=== PATIENT | female | born 1995 | race Caucasian/White ===

== ENCOUNTER 2019-06-15 19:21 | Emergency (ER) | payer MEDICAID, SELFPAY ==
[2019-06-15 19:27] VITALS: BP 156/106; PULSE 85; RESP 18; TEMP 36.9; O2SAT 100; BMI 33.3
--- NOTE | 2019-06-15 20:48 | ED_ITS ---
Entered by Shonda Davies, acting as scribe for Jessica Pike Jun 15, 2019 19:21 HPI - Abdominal Pain General: Chief Complaint: Abdominal Pain Stated Complaint: ABD pain Time Seen by Provider: 06/15/19 20:46 PFSH ED PFSH: Statuses (acute, chronic, etc) shown below reflect problem list status as previously entered and may not be historically accurate Social History Smoking and tobacco status: never smoked Course Vital Signs: Vital signs: Vital Signs Temperature 98.5 F 06/15/19 19:27 Pulse Rate 85 06/15/19 19:27 Respiratory Rate 18 06/15/19 19:27 Blood Pressure 156/106 06/15/19 19:27 Pulse Oximetry 100 06/15/19 19:27 Coding Level of Care Code ED Certified Fraud Examiner for Zenaida Marie
[2019-06-15 21:34] LABS: Basophils % 0.4 %; Eosinophils # 0.1 10^3/uL (0.0-0.8); Eosinophils % 1.6 %; Hematocrit 38.8 % (37.0-47.0); Hemoglobin 11.7 g/dL (11.5-15.3); Lymphocytes # 1.6 10^3/uL (0.8-4.8); Lymphocytes % 19.6 %; Mean Corpuscular HGB Conc 30.2 g/dL (30.0-36.0); Mean Corpuscular Hemoglobin 25.2 pg (28.0-34.0); Mean Corpuscular Volume 83.4 fL (81-99); Mean Platelet Volume 10.1 fL (7.4-10.4); Monocytes # 0.6 10^3/uL (0.2-0.9); Neutrophils # 5.7 10^3/uL (1.8-7.7); Neutrophils % 70.2 %; Nucleated Red Blood Cells % 0 %; Platelet Count 334 10^3/cmm (130-400); Red Blood Count 4.65 10^6/uL (4.1-5.3); White Blood Count 8.1 10^3/uL (4.0-10.0)
[2019-06-15 21:42] LABS: HCG Qualitative Urine. Negative (Negative)
[2019-06-15 21:46] LABS: Add Urine Culture? No; Bacteria Urine TRACE; Bilirubin Urine Neg (NEGATIVE); Blood Urine Neg (Negative); Glucose Urine UA Norm (Normal); Ketones Urine Negative (Negative); Leukocyte Esterase Urine Negative (Negative); Mucus Urine 1+; Nitrate Urine Negative (Negative); Protein Urine Neg (Negative); Specific Gravity, Urine 1.015 (1.005-1.030); Squamous Epithelial Cell Urine 0-4 (0-5); Urine Appearance Clear (CLEAR); Urine Color Yellow (Yellow); Urobilinogen Urine Norm (Negative); WBC Urine 0-4 /hpf (0-5); pH Urine 6 (5-7)
[2019-06-15 21:46] LABS: Alanine Aminotransferase 18 U/L (0-33); Albumin Level 4.5 g/dL (3.5-5.2); Alkaline Phosphatase 116 IU/L (35-105); Anion Gap 14.9 (5-19); Aspartate Amino Transferase 17 U/L (0-32); Blood Urea Nitrogen 18 mg/dL (6-20); Calcium 10.1 mg/Dl (8.6-10.0); Carbon Dioxide 24 mmol/L (22-29); Chloride 103 mmol/L (98-107); Globulin 3.2 g/dL (1.3-4.6); Glomerular Filtration Rate 104.6 mL/min (90-130); Glucose 87 mg/dL (74-109); Lipase 21 U/L (13-60); Potassium 3.9 mmol/L (3.5-5.1); Sodium 138 mmol/L (136-145); Total Bilirubin 0.2 mg/dL (0.15-1.2); Total Protein 7.7 g/dL (6.6-8.7)
--- NOTE | 2019-06-15 22:01 | ED_ITS ---
Entered by Yasmin Husain, acting as scribe for Linn Mena MD, [facility] Jun 15, 2019 19:21 Documented by User: Linn Mena MD, MSM 06/15/19 23:05 HPI - Abdominal Pain General: Chief Complaint: Abdominal Pain Stated Complaint: ABD pain Time Seen by Provider: 06/15/19 20:46 Source: patient Mode of arrival: ambulatory Limitations: no limitations History of Present Illness: HPI narrative: 23 yo Female presents to ED with complaint of abdominal pain. Pt states that her stomach has been cramping the past couple of days. Pt states that this morning her stomach started hurting very low. Pt states that the bumps in the road hurt. Pt states that she has been having to have bowel movements more often. Pt states that her bowel movements are normal but just more often. MD elicited complaint: abdominal pain Pertinent past history: none Onset (ago): day(s) Pain Consistency: intermittent Location: RLQ Pain scale (0-10): 6 Quality: cramping Radiation: none Migration to: no migration Exacerbating factors: nothing Relieving factors: nothing Associated Symptoms: Reports change in bowel habits; Denies chills, constipation, diarrhea, dysuria, fever(s), nausea and vomiting Review of Systems General: Reports: 10 or more systems reviewed and unremarkable except in HPI and below Const: Denies: fever, chills or body aches Eyes: Denies: change in vision, blurry vision or blind spots ENMT: Denies: throat pain, enlarged tonsils, painful swallowing or hoarseness Card: Denies: chest pain, palpitations, irregular heart rhythm, edema or swelling of feet/ankles Resp: Denies: shortness of breath, productive cough or non-productive cough GI: Reports: abdominal pain and change in bowel habits; Denies: nausea, vomiting, diarrhea or constipation : Denies: flank pain, difficulty urinating, painful urination, urinary frequency or urinary urgency Musc: Denies: neck pain, back pain, extremity pain or extremity swelling Skin/Breast: Denies: rash, itching or redness Neuro: Denies: headache, numbness in extremities or weakness in extremities Endo: Denies: excessive urination, excessive thirst or tired all the time PFSH ED PFSH: Statuses (acute, chronic, etc) shown below reflect problem list status as previously entered and may not be historically accurate Social History Smoking and tobacco status: never smoked Physical Exam Const: COMMON NORMALS: no apparent distress, average body habitus, oriented x3, no limitations, healthy appearing, alert and well nourished HENMT: COMMON NORMALS: normocephalic, head/scalp atraumatic, hearing grossly normal bilaterally, external ears normal, EAC's normal, TM's normal bilaterally, external nose normal, nasal mucous membranes and turbinates normal, moist oral mucous membranes and oropharynx normal HEAD & SCALP: normocephalic and atraumatic NOSE: external nose normal and nasal mucous membranes and turbinates normal EXTERNAL EAR: Yes external ears normal EXTERNAL AUDITORY CANAL: EAC's normal TYMPANIC MEMBRANE: TM's normal bilaterally Eye: COMMON NORMALS: PERRL, EOMs intact bilaterally, conjunctivae normal and no scleral icterus CONJUNCTIVA: Yes conjunctivae normal PUPIL: Yes PERRL Neck/C-Spine: COMMON NORMALS: full ROM, supple, no meningeal signs, no JVD and no carotid bruits Chest: COMMONS NORMALS: inspection of chest normal and palpation of chest normal Resp: COMMON NORMALS: normal respiratory effort, no retractions, no use of accessory muscles, clear to auscultation bilaterally and percussion normal AUSCULTATION: clear to auscultation bilaterally PERCUSSION: percussion normal Cardio: COMMON NORMALS: no JVD, regular rate, regular rhythm, S1 normal heart sound, S2 normal heart sound, no gallops, no clicks, no murmurs, no rub and peripheral pulses 2+ throughout RATE: regular rate RHYTHM: regular rhythm HEART SOUNDS: S1 normal and S2 normal PERIPHERAL PULSES: pulses 2+ throughout GI: COMMON NORMALS: normal to inspection, nondistended, normoactive bowel sounds, soft to palpation, no hepatosplenomegaly, no masses and no bruits; negative for non-tender PALPATION: Yes soft, Yes tender Details: RLQ and Yes no hepatosplenomegaly : COMMON NORMALS: Yes no CVA tenderness BLADDER/KIDNEY EXAM: Yes no CVA tenderness Back/Pelvis: COMMON NORMALS: no CVA tenderness Extremity: COMMON NORMALS: normal to inspection, full ROM, normal capillary refill, no joint enlargement, no clubbing, cyanosis or edema, no calf tenderness and no pedal edema Neuro: COMMON NORMALS: oriented x3 SENSORIUM/ORIENTATION: Yes alert MENINGEAL SIGNS: Yes no meningeal signs Skin: COMMON NORMALS: no rashes or lesions noted, no wounds, skin turgor normal, no jaundice, no petechiae and no mottling GENERAL SKIN EXAM: no rashes or lesions noted and turgor normal Course Vital Signs: Vital signs: Vital Signs Temperature 98.5 F 06/15/19 19:27 Pulse Rate 82 06/15/19 23:05 Respiratory Rate 18 06/15/19 23:05 Blood Pressure 161/99 06/15/19 23:05 Pulse Oximetry 100 06/15/19 23:05 MDM - Abdominal Pain Lab Data: Labs: Lab Results 06/15/19 06/15/19 06/15/19 Range/Units 21:15 21:15 21:15 WBC 8.1 (4.0-10.0) 10^3/ uL RBC 4.65 (4.1-5.3) 10^6/u L Hgb 11.7 (11.5-15.3) g/dL Hct 38.8 (37.0-47.0) % MCV 83.4 (81-99) fL MCH 25.2 L (28.0-34.0) pg MCHC 30.2 (30.0-36.0) g/dL RDW 14.0 (12.1-15.1) % Plt Count 334 (130-400) 10^3/c mm MPV 10.1 (7.4-10.4) fL Neut % (Auto) 70.2 % Lymph % (Auto) 19.6 % Love % (Auto) 8.0 % Eos % (Auto) 1.6 % Baso % (Auto) 0.4 % Neut # (Auto) 5.7 (1.8-7.7) 10^3/u L Lymph # (Auto) 1.6 (0.8-4.8) 10^3/u L Love # (Auto) 0.6 (0.2-0.9) 10^3/u L Eos # (Auto) 0.1 (0.0-0.8) 10^3/u L Baso # (Auto) 0.0 (0.0-0.1) 10^3/u L Nucleated RBC % (a uto) 0 % Nucleated RBCs # 0.0 /100WBC Sodium 138 (136-145) mmol/L Potassium 3.9 (3.5-5.1) mmol/L Chloride 103 (98-107) mmol/L Carbon Dioxide 24 (22-29) mmol/L Anion Gap 14.9 (5-19) BUN 18 (6-20) mg/dL Creatinine 0.7 (0.5-0.9) mg/dL GFR Calculation 104.6 (90-130) mL/min Glucose 87 (74-109) mg/dL Calcium 10.1 H (8.6-10.0) mg/Dl Total Bilirubin 0.2 (0.15-1.2) mg/dL AST 17 (0-32) U/L ALT 18 (0-33) U/L Alkaline Phosphata se 116 H (35-105) IU/L Total Protein 7.7 (6.6-8.7) g/dL Albumin 4.5 (3.5-5.2) g/dL Globulin 3.2 (1.3-4.6) g/dL Lipase 21 (13-60) U/L HCG, Qual Negative (Negative) Urine Color (Yellow) Urine Appearance (CLEAR) Urine pH (5-7) Ur Specific Gravit y (1.005-1.030) Urine Protein (Negative) Urine Glucose (UA) (Normal) Urine Ketones (Negative) Urine Occult Blood (Negative) Urine Nitrate (Negative) Urine Bilirubin (NEGATIVE) Urine Urobilinogen (Negative) mg/dL Ur Leukocyte Dolores ase (Negative) Urine RBC (0-2) /hpf Urine WBC (0-5) /hpf Ur Squamous Epith Cells (0-5) Urine Bacteria (NONE) Urine Mucus 06/15/19 Range/Units 21:21 WBC (4.0-10.0) 10^3/ uL RBC (4.1-5.3) 10^6/u L Hgb (11.5-15.3) g/dL Hct (37.0-47.0) % MCV (81-99) fL MCH (28.0-34.0) pg MCHC (30.0-36.0) g/dL RDW (12.1-15.1) % Plt Count (130-400) 10^3/c mm MPV (7.4-10.4) fL Neut % (Auto) % Lymph % (Auto) % Love % (Auto) % Eos % (Auto) % Baso % (Auto) % Neut # (Auto) (1.8-7.7) 10^3/u L Lymph # (Auto) (0.8-4.8) 10^3/u L Love # (Auto) (0.2-0.9) 10^3/u L Eos # (Auto) (0.0-0.8) 10^3/u L Baso # (Auto) (0.0-0.1) 10^3/u L Nucleated RBC % (a uto) % Nucleated RBCs # /100WBC Sodium (136-145) mmol/L Potassium (3.5-5.1) mmol/L Chloride (98-107) mmol/L Carbon Dioxide (22-29) mmol/L Anion Gap (5-19) BUN (6-20) mg/dL Creatinine (0.5-0.9) mg/dL GFR Calculation (90-130) mL/min Glucose (74-109) mg/dL Calcium (8.6-10.0) mg/Dl Total Bilirubin (0.15-1.2) mg/dL AST (0-32) U/L ALT (0-33) U/L Alkaline Phosphata se (35-105) IU/L Total Protein (6.6-8.7) g/dL Albumin (3.5-5.2) g/dL Globulin (1.3-4.6) g/dL Lipase (13-60) U/L HCG, Qual (Negative) Urine Color Yellow (Yellow) Urine Appearance Clear (CLEAR) Urine pH 6 (5-7) Ur Specific Gravit y 1.015 (1.005-1.030) Urine Protein Neg (Negative) Urine Glucose (UA) Norm (Normal) Urine Ketones Negative (Negative) Urine Occult Blood Neg (Negative) Urine Nitrate Negative (Negative) Urine Bilirubin Neg (NEGATIVE) Urine Urobilinogen Norm (Negative) mg/dL Ur Leukocyte Dolores ase Negative (Negative) Urine RBC None (0-2) /hpf Urine WBC 0-4 H (0-5) /hpf Ur Squamous Epith Cells 0-4 H (0-5) Urine Bacteria Trace (NONE) Urine Mucus 1+ Discharge Plan Discharge Patient Disposition: Home, Self-Care Clinical Impression: Abdominal pain Qualifiers: Abdominal location: lower abdomen, unspecified Qualified Code(s): R10.30 - Lower abdominal pain, unspecified Condition: Stable Prescriptions: New ondansetron HCl [Zofran] 4 mg tablet 4 mg PO DAILY PRN (Reason: nausea and vomiting) 5 Days RF: 0 Discharge Orders: Discharge Order (Routine); Ordered 06/15/19 Ordered By: Jessica Pike Discharge Diet: Advance as tolerated Discharge Activity: Increase activity as tolerated Patient Instructions: Appendicitis (GEN), Cholecystitis (ED), Abdominal Pain (ED) Activity Restrictions/Additional Instructions: Please return to the ER immediately for any of the signs or symptoms listed on your discharge instruction sheets, worsening/changing of your symptoms, you are not getting better as quickly as expected, or for ANY other cause or concerns. I have recommended and offered to admit you to the hospital for observation to further evaluate your abdominal pain to include evaluation of appendicitis but you have declined. If your symptoms worsen or change in any way please return to the ER immediately for recheck. Please return to the ER in the morning regardless so we can reevaluate to rule out appendicitis. Stand Alone Forms: Work/School Release Sign Out Sign Out Data: Patient Sign Out occurred on 06/15/19 at 23:07. Patient's care was discussed, and care was transferred from Linn Mena MD, [facility] to Jessica Pike. Sign Out Comment: Patient signed out to Dr. Pike Last updated by Linn Mena MD, [facility] at 06/15/19 23:06 Coding Level of Care Code ED Helper Coordinator for Chg Fwd Exam Problem Focused Documented by User: Jessica Pike 06/15/19 23:49 HPI - Abdominal Pain General: Chief Complaint: Abdominal Pain Stated Complaint: ABD pain Time Seen by Provider: 06/15/19 20:46 PFS ED PFSH: Statuses (acute, chronic, etc) shown below reflect problem list status as previously entered and may not be historically accurate Social History Smoking and tobacco status: never smoked Course Vital Signs: Vital signs: Vital Signs Temperature 98.5 F 06/15/19 19:27 Pulse Rate 82 06/15/19 23:05 Respiratory Rate 18 06/15/19 23:05 Blood Pressure 161/99 06/15/19 23:05 Pulse Oximetry 100 06/15/19 23:05 MDM - Abdominal Pain MDM Narrative: Medical decision making narrative: 2300 - Care assumed by me at change of shift. 6 -the patient is relieved to hear her CT scan is normal. She still has mild discomfort but better than when she arrived. I have recommended and offered to get a gallbladder ultrasound although clinically she has no right upper quadrant pain she is declining. She still has some tenderness although no signs of peritonitis or rebound tenderness in her abdomen but she refuses to stay for observation by surgery. After much encouragement by me she does agree to return tomorrow morning for recheck. At this time I am concerned about a developing problem in her abdomen which may just be worsening gastroenteritis as shown by CT but appendicitis or other problem is still a possibility. I have made the patient aware of this and she understands she does agree to return tomorrow for recheck. We did also discuss her returning sooner should her symptoms worsen and she agrees to do that as well. Lab Data: Attestation: I reviewed the patient's lab results. Labs: Lab Results 06/15/19 06/15/19 06/15/19 Range/Units 21:15 21:15 21:15 WBC 8.1 (4.0-10.0) 10^3/ uL RBC 4.65 (4.1-5.3) 10^6/u L Hgb 11.7 (11.5-15.3) g/dL Hct 38.8 (37.0-47.0) % MCV 83.4 (81-99) fL MCH 25.2 L (28.0-34.0) pg MCHC 30.2 (30.0-36.0) g/dL RDW 14.0 (12.1-15.1) % Plt Count 334 (130-400) 10^3/c mm MPV 10.1 (7.4-10.4) fL Neut % (Auto) 70.2 % Lymph % (Auto) 19.6 % Love % (Auto) 8.0 % Eos % (Auto) 1.6 % Baso % (Auto) 0.4 % Neut # (Auto) 5.7 (1.8-7.7) 10^3/u L Lymph # (Auto) 1.6 (0.8-4.8) 10^3/u L Love # (Auto) 0.6 (0.2-0.9) 10^3/u L Eos # (Auto) 0.1 (0.0-0.8) 10^3/u L Baso # (Auto) 0.0 (0.0-0.1) 10^3/u L Nucleated RBC % (a uto) 0 % Nucleated RBCs # 0.0 /100WBC Sodium 138 (136-145) mmol/L Potassium 3.9 (3.5-5.1) mmol/L Chloride 103 (98-107) mmol/L Carbon Dioxide 24 (22-29) mmol/L Anion Gap 14.9 (5-19) BUN 18 (6-20) mg/dL Creatinine 0.7 (0.5-0.9) mg/dL GFR Calculation 104.6 (90-130) mL/min Glucose 87 (74-109) mg/dL Calcium 10.1 H (8.6-10.0) mg/Dl Total Bilirubin 0.2 (0.15-1.2) mg/dL AST 17 (0-32) U/L ALT 18 (0-33) U/L Alkaline Phosphata se 116 H (35-105) IU/L Total Protein 7.7 (6.6-8.7) g/dL Albumin 4.5 (3.5-5.2) g/dL Globulin 3.2 (1.3-4.6) g/dL Lipase 21 (13-60) U/L HCG, Qual Negative (Negative) Urine Color (Yellow) Urine Appearance (CLEAR) Urine pH (5-7) Ur Specific Gravit y (1.005-1.030) Urine Protein (Negative) Urine Glucose (UA) (Normal) Urine Ketones (Negative) Urine Occult Blood (Negative) Urine Nitrate (Negative) Urine Bilirubin (NEGATIVE) Urine Urobilinogen (Negative) mg/dL Ur Leukocyte Dolores ase (Negative) Urine RBC (0-2) /hpf Urine WBC (0-5) /hpf Ur Squamous Epith Cells (0-5) Urine Bacteria (NONE) Urine Mucus 06/15/19 Range/Units 21:21 WBC (4.0-10.0) 10^3/ uL RBC (4.1-5.3) 10^6/u L Hgb (11.5-15.3) g/dL Hct (37.0-47.0) % MCV (81-99) fL MCH (28.0-34.0) pg MCHC (30.0-36.0) g/dL RDW (12.1-15.1) % Plt Count (130-400) 10^3/c mm MPV (7.4-10.4) fL Neut % (Auto) % Lymph % (Auto) % Love % (Auto) % Eos % (Auto) % Baso % (Auto) % Neut # (Auto) (1.8-7.7) 10^3/u L Lymph # (Auto) (0.8-4.8) 10^3/u L Love # (Auto) (0.2-0.9) 10^3/u L Eos # (Auto) (0.0-0.8) 10^3/u L Baso # (Auto) (0.0-0.1) 10^3/u L Nucleated RBC % (a uto) % Nucleated RBCs # /100WBC Sodium (136-145) mmol/L Potassium (3.5-5.1) mmol/L Chloride (98-107) mmol/L Carbon Dioxide (22-29) mmol/L Anion Gap (5-19) BUN (6-20) mg/dL Creatinine (0.5-0.9) mg/dL GFR Calculation (90-130) mL/min Glucose (74-109) mg/dL Calcium (8.6-10.0) mg/Dl Total Bilirubin (0.15-1.2) mg/dL AST (0-32) U/L ALT (0-33) U/L Alkaline Phosphata se (35-105) IU/L Total Protein (6.6-8.7) g/dL Albumin (3.5-5.2) g/dL Globulin (1.3-4.6) g/dL Lipase (13-60) U/L HCG, Qual (Negative) Urine Color Yellow (Yellow) Urine Appearance Clear (CLEAR) Urine pH 6 (5-7) Ur Specific Gravit y 1.015 (1.005-1.030) Urine Protein Neg (Negative) Urine Glucose (UA) Norm (Normal) Urine Ketones Negative (Negative) Urine Occult Blood Neg (Negative) Urine Nitrate Negative (Negative) Urine Bilirubin Neg (NEGATIVE) Urine Urobilinogen Norm (Negative) mg/dL Ur Leukocyte Dolores ase Negative (Negative) Urine RBC None (0-2) /hpf Urine WBC 0-4 H (0-5) /hpf Ur Squamous Epith Cells 0-4 H (0-5) Urine Bacteria Trace (NONE) Urine Mucus 1+ Imaging Data ^: CT Abd/Pel: Radiologist's impression: [place] [address] CT Scan Report Signed Patient: India Hernandez Unit #: [id number] : 1995 Age/Sex: 23 / F ADM Date: 06/15/19 Loc: ER Room/Bed: Attending Dr: Ordering Provider/Ordering MD: Linn Mena MD, [facility] Date of Service: 06/15/19 Procedure(s): CT abdomen pelvis w con* [id number] Accession Number(s): [id number] Report Number: [id number] PROCEDURE INFORMATION: Exam: CT Abdomen And Pelvis With Contrast Exam date and time: 06/15/2019 10:19 PM Age: 23 years old Clinical indication: Abdominal pain; Localized; Right; Prior surgery; Surgery date: 1-6 months; Surgery type: ; Additional info: Rlq pain TECHNIQUE: Imaging protocol: Computed tomography of the abdomen and pelvis with intravenous contrast. Total DLP: 1624.79 mGy-cm Radiation optimization: All CT scans at this facility use at least one of these dose optimization techniques: automated exposure control; mA and/or kV adjustment per patient size (includes targeted exams where dose is matched to clinical indication); or iterative reconstruction. Contrast material: OMNI 300; Contrast volume: 95 ml; Contrast route: IV; COMPARISON: CT Abdomen/Pelvis Renal [id number] 01/24/2018 12:13 AM FINDINGS: Lungs: The lung bases are clear. Liver: Unremarkable. Gallbladder and bile ducts: Possible mild gallbladder wall thickening. No visible gallstones or other definite gallbladder abnormality by CT. Ultrasound could be more sensitive for detecting gallstones, if clinically needed. No biliary tree dilation. Pancreas: Unremarkable. Spleen: Unremarkable. Adrenals: Unremarkable. Kidneys and ureters: No hydronephrosis of either kidney. No visible ureteral calculus. No perinephric fluid. Stomach and bowel: A few small bowel loops are fluid-filled and borderline prominent in size, but the overall appearance is not suggestive of significant small bowel obstruction at this time. This appearance could be secondary to some form of gastroenteritis. Please correlate clinically. If there is clinical suspicion for small bowel obstruction, follow-up may be helpful to exclude progression. There are no CT findings to strongly suggest diverticulitis. Appendix: The appendix is visualized and appears normal. Intraperitoneal space: No free air, or ascites. Vasculature: No evidence for abdominal aortic aneurysm. Lymph nodes: No retroperitoneal adenopathy. Bladder: Possibly some mild diffuse urinary bladder wall thickening. While nonspecific, this could indicate evidence for cystitis. Please correlate clinically. Reproductive: The left ovary contains a 17-18 mm dominant follicle versus small cyst. Significance uncertain due to relatively small size. Small amount of cul-de-sac fluid. Bones/joints: No significant acute finding. Soft tissues: Very small umbilical hernia, containing only fat. CT/CT abdomen pelvis w con* [id number] IMPRESSION: 1. Normal appendix. 2. Possible mild gallbladder wall thickening, no visible gallstones by CT. See above. 3. A few small bowel loops are fluid-filled and borderline prominent in size, see above discussion. This appearance could be secondary to some form of gastroenteritis. 4. Possible mild urinary bladder wall thickening, see above. 5. The left ovary contains a 17-18 mm dominant follicle versus small cyst. Significance uncertain due to relatively small size. Small amount of cul-de-sac fluid. 6. Other findings discussed above. Radiation Dose CTDIVOL = (mGy): DLP = 1624.79 (mGy-cm) Dictated By: Jacques Lance MD Signed By: Jacques Lance MD Signed Date/Time: 06/15/192321 DD/ 19 Discharge Plan Discharge Patient Disposition: Home, Self-Care Clinical Impression: Abdominal pain Qualifiers: Abdominal location: lower abdomen, unspecified Qualified Code(s): R10.30 - Lower abdominal pain, unspecified Condition: Stable Prescriptions: New ondansetron HCl [Zofran] 4 mg tablet 4 mg PO DAILY PRN (Reason: nausea and vomiting) 5 Days RF: 0 Discharge Orders: Discharge Order (Routine); Ordered 06/15/19 Ordered By: Jessica Pike Discharge Diet: Advance as tolerated Discharge Activity: Increase activity as tolerated Patient Instructions: Appendicitis (GEN), Cholecystitis (ED), Abdominal Pain (ED) Activity Restrictions/Additional Instructions: Please return to the ER immediately for any of the signs or symptoms listed on your discharge instruction sheets, worsening/changing of your symptoms, you are not getting better as quickly as expected, or for ANY other cause or concerns. I have recommended and offered to admit you to the hospital for observation to further evaluate your abdominal pain to include evaluation of appendicitis but you have declined. If your symptoms worsen or change in any way please return to the ER immediately for recheck. Please return to the ER in the morning regardless so we can reevaluate to rule out appendicitis. Stand Alone Forms: Work/School Release Sign Out Sign Out Data: Patient Sign Out occurred on 06/15/19 at 23:07. Patient's care was discussed, and care was transferred from Linn Mena MD, [facility] to Jessica Pike. Sign Out Comment: Patient signed out to Dr. Pike Last updated by Linn Mena MD, [facility] at 06/15/19 23:06 Coding Level of Care Code ED Helper Coordinator for Chg Fwd Exam Problem Focused The documentation recorded by the Lisha rivres Carmen, accurately reflects the service I personally performed and the decisions made by me, Linn Mena MD, [facility] Jun 15, 2019 19:21
--- NOTE | 2019-06-15 22:07 | CTR_ITS ---
PROCEDURE INFORMATION: Exam: CT Abdomen And Pelvis With Contrast Exam date and time: 06/15/2019 10:19 PM Age: 23 years old Clinical indication: Abdominal pain; Localized; Right; Prior surgery; Surgery date: 1-6 months; Surgery type: ; Additional info: Rlq pain TECHNIQUE: Imaging protocol: Computed tomography of the abdomen and pelvis with intravenous contrast. Total DLP: 1624.79 mGy-cm Radiation optimization: All CT scans at this facility use at least one of these dose optimization techniques: automated exposure control; mA and/or kV adjustment per patient size (includes targeted exams where dose is matched to clinical indication); or iterative reconstruction. Contrast material: OMNI 300; Contrast volume: 95 ml; Contrast route: IV; COMPARISON: CT Abdomen/Pelvis Renal [id number] 01/24/2018 12:13 AM FINDINGS: Lungs: The lung bases are clear. Liver: Unremarkable. Gallbladder and bile ducts: Possible mild gallbladder wall thickening. No visible gallstones or other definite gallbladder abnormality by CT. Ultrasound could be more sensitive for detecting gallstones, if clinically needed. No biliary tree dilation. Pancreas: Unremarkable. Spleen: Unremarkable. Adrenals: Unremarkable. Kidneys and ureters: No hydronephrosis of either kidney. No visible ureteral calculus. No perinephric fluid. Stomach and bowel: A few small bowel loops are fluid-filled and borderline prominent in size, but the overall appearance is not suggestive of significant small bowel obstruction at this time. This appearance could be secondary to some form of gastroenteritis. Please correlate clinically. If there is clinical suspicion for small bowel obstruction, follow-up may be helpful to exclude progression. There are no CT findings to strongly suggest diverticulitis. Appendix: The appendix is visualized and appears normal. Intraperitoneal space: No free air, or ascites. Vasculature: No evidence for abdominal aortic aneurysm. Lymph nodes: No retroperitoneal adenopathy. Bladder: Possibly some mild diffuse urinary bladder wall thickening. While nonspecific, this could indicate evidence for cystitis. Please correlate clinically. Reproductive: The left ovary contains a 17-18 mm dominant follicle versus small cyst. Significance uncertain due to relatively small size. Small amount of cul-de-sac fluid. Bones/joints: No significant acute finding. Soft tissues: Very small umbilical hernia, containing only fat. CT/CT abdomen pelvis w con* [id number] IMPRESSION: 1. Normal appendix. 2. Possible mild gallbladder wall thickening, no visible gallstones by CT. See above. 3. A few small bowel loops are fluid-filled and borderline prominent in size, see above discussion. This appearance could be secondary to some form of gastroenteritis. 4. Possible mild urinary bladder wall thickening, see above. 5. The left ovary contains a 17-18 mm dominant follicle versus small cyst. Significance uncertain due to relatively small size. Small amount of cul-de-sac fluid. 6. Other findings discussed above. Radiation Dose CTDIVOL = (mGy): DLP = 1624.79 (mGy-cm)
[2019-06-15] MEDS: iohexol 300 mg/mL 100 mL Btl 95 ML IV (22:54)
[2019-06-15 23:05] VITALS: BP 161/99; PULSE 82; RESP 18; O2SAT 100
[2019-06-16 00:29] VITALS: BP 134/84; PULSE 79; RESP 18; O2SAT 100
--- NOTE | 2019-06-23 14:52 | DCPLANNER ---
Patient did not attend appointment scheduled for 06.22.19 at [facility].
== END 2019-06-16 00:30 | disposition home or self-care (01) ==
PROVIDERS: Emergency Provider Emergency Medicine
DX: R10.30 Lower abdominal pain, unspecified (principal)
CPT/HCPCS: 36415; 74177; 80053; 81001; 81025; 83690; 85025; 99282; 99284; Q9967

== ENCOUNTER 2019-06-16 10:31 | Emergency (ER) | payer MEDICAID, SELFPAY ==
[2019-06-16 10:39] VITALS: BP 137/93; PULSE 73; RESP 18; TEMP 36.8; O2SAT 100; BMI 33.3
--- NOTE | 2019-06-16 11:01 | W.ED.ABDPA2 ---
HPI - Abdominal Pain General: Chief Complaint: Abdominal Pain Stated Complaint: abd pain Time Seen by Provider: 06/16/19 10:32 History of Present Illness: HPI narrative: 23-year-old female was seen last night for abdominal pain returns this morning with persistent right lower quadrant abdominal pain she did tell me she had a CT of her abdomen and her appendix was read as normal but was advised to return if has worsening pain she does so again because she is having worsening pain. She feels nauseous but has not been able to vomit she is not having diarrhea her appetite is decreased she is noticed severe pain with any movement or movement bumps in the road when she was driving in. She denies dysuria urgency or frequency has not had any shortness of breath or cough is not really had a fever either. She relates that last night there was question of some gallbladder issues as well and a left ovarian cyst will review last night charting. MD elicited complaint: abdominal pain (Right lower quadrant) Pertinent past history: other (Seen last night see above) Location: RLQ Severity: severe Quality: cramping and sharp Exacerbating factors: movement Relieving factors: rest Associated Symptoms: Reports nausea and poor appetite; Denies coffee ground emesis, diarrhea, dysuria, fever(s), hematochezia, hematemesis, fecal incontinence, melena and vomiting Treatments prior to arrival: NSAIDs Related Data: Date of Last Menstrual Period: 06/02/19 Review of Systems Const: Denies: fever ENMT: Denies: throat pain, ear pain, nasal discharge or nasal congestion Card: Denies: chest pain, edema, shortness of breath on exertion or shortness of breath when lying down Resp: Denies: shortness of breath, productive cough or non-productive cough GI: Reports: nausea; Denies: vomiting, vomiting blood, coffee grounds in vomit, diarrhea, fecal incontinence, blood in stool or black tarry stool : Denies: painful urination, urinary frequency or urinary urgency Skin/Breast: Denies: rash or itching PFSH ED PFSH: Statuses (acute, chronic, etc) shown below reflect problem list status as previously entered and may not be historically accurate Surgical History Hx of tonsillectomy (Acute) Previous section (Acute) Social History (Reviewed 06/17/19 @ 12:10 by DIAMOND Johnston Smoking and tobacco status: never smoked Female Reproductive History: Date of last menstrual period: 06/02/19 Physical Exam Const: COMMON NORMALS: no apparent distress GENERAL APPEARANCE: cooperative and comfortable ORIENTATION/CONSCIOUSNESS: Yes awake, Yes oriented to person, Yes oriented to place and Yes oriented to time HENMT: COMMON NORMALS: normocephalic, head/scalp atraumatic, hearing grossly normal bilaterally, external ears normal, EAC's normal, TM's normal bilaterally, nasal mucous membranes and turbinates normal, moist oral mucous membranes and oropharynx normal HEAD & SCALP: normocephalic and atraumatic NOSE: nasal mucous membranes and turbinates normal EXTERNAL EAR: Yes external ears normal EXTERNAL AUDITORY CANAL: EAC's normal TYMPANIC MEMBRANE: TM's normal bilaterally Eye: COMMON NORMALS: PERRL, EOMs intact bilaterally, conjunctivae normal and no scleral icterus CONJUNCTIVA: Yes conjunctivae normal PUPIL: Yes PERRL Neck/C-Spine: COMMON NORMALS: full ROM, no lymphadenopathy, supple and no JVD Lymph: LYMPHATIC: no lymphadenopathy noted and no lymphedema noted Resp: COMMON NORMALS: normal respiratory effort, no retractions, no use of accessory muscles and clear to auscultation bilaterally AUSCULTATION: clear to auscultation bilaterally Cardio: COMMON NORMALS: no JVD, regular rate, regular rhythm and no murmurs RATE: regular rate RHYTHM: regular rhythm GI: COMMON NORMALS: soft to palpation and no hepatosplenomegaly AUSCULTATION: Yes normoactive bowel sounds PALPATION: Yes soft, Yes tender Details: RLQ, No guarding and Yes no hepatosplenomegaly Extremity: COMMON NORMALS: normal to inspection, normal capillary refill, no clubbing, cyanosis or edema, no calf tenderness and no pedal edema Neuro: SENSORIUM/ORIENTATION: Yes oriented to person, Yes oriented to place and Yes oriented to time Skin: COMMON NORMALS: no rashes or lesions noted GENERAL SKIN EXAM: no rashes or lesions noted Course ED course: CT shows no acute appendicitis but she does have some mild fluid in the pelvis suspect it is from the ovarian cyst will have her use pain medications follow-up with her primary care doctor return sooner if she has problems. Due to some difficulties managing the new EMR it did briefly look like she had markedly elevated blood sugar I discussed this with her and then corrected it discussed the abnormal finding was not hers and that she did not have elevated blood sugars or diabetes. Vital Signs: Vital signs: Vital Signs Temperature 98.2 F 06/16/19 10:39 Pulse Rate 75 06/16/19 15:30 Respiratory Rate 16 06/16/19 15:30 Blood Pressure 125/78 06/16/19 15:30 Pulse Oximetry 98 06/16/19 15:30 MDM - Abdominal Pain Lab Data: Labs: Lab Results 06/16/19 06/16/19 06/16/19 Range/Units 11:10 11:10 11:23 WBC 4.8 (4.0-10.0) 10^3/ uL RBC 4.67 (4.1-5.3) 10^6/u L Hgb 11.4 L (11.5-15.3) g/dL Hct 37.1 (37.0-47.0) % MCV 79.4 L (81-99) fL MCH 24.4 L (28.0-34.0) pg MCHC 30.7 (30.0-36.0) g/dL RDW 13.9 (12.1-15.1) % Plt Count 314 (130-400) 10^3/c mm MPV 9.5 (7.4-10.4) fL Neut % (Auto) 66.0 % Lymph % (Auto) 20.6 % [place] % (Auto) 10.9 % Eos % (Auto) 1.9 % Baso % (Auto) 0.4 % Neut # (Auto) 3.1 (1.8-7.7) 10^3/u L Lymph # (Auto) 1.0 (0.8-4.8) 10^3/u L [place] # (Auto) 0.5 (0.2-0.9) 10^3/u L Eos # (Auto) 0.1 (0.0-0.8) 10^3/u L Baso # (Auto) 0.0 (0.0-0.1) 10^3/u L Nucleated RBC % (a uto) 0 % Nucleated RBCs # 0.0 /100WBC Sodium (136-145) mmol/L Potassium (3.5-5.1) mmol/L Chloride (98-107) mmol/L Carbon Dioxide (22-29) mmol/L Anion Gap (5-19) BUN (6-20) mg/dL Creatinine (0.5-0.9) mg/dL GFR Calculation (90-130) mL/min Glucose (74-109) mg/dL Calcium (8.6-10.0) mg/Dl Total Bilirubin (0.15-1.2) mg/dL AST (0-32) U/L ALT (0-33) U/L Alkaline Phosphata se (35-105) IU/L Total Protein (6.6-8.7) g/dL Albumin (3.5-5.2) g/dL Globulin (1.3-4.6) g/dL HCG, Qual Negative (Negative) Urine Color Yellow (Yellow) Urine Appearance Clear (CLEAR) Urine pH 5 (5-7) Ur Specific Gravit y 1.020 (1.005-1.030) Urine Protein Neg (Negative) Urine Glucose (UA) Norm (Normal) Urine Ketones Negative (Negative) Urine Occult Blood Neg (Negative) Urine Nitrate Negative (Negative) Urine Bilirubin Neg (NEGATIVE) Urine Urobilinogen Norm (Negative) mg/dL Ur Leukocyte Dolores ase Negative (Negative) 06/16/19 Range/Units 11:23 WBC (4.0-10.0) 10^3/ uL RBC (4.1-5.3) 10^6/u L Hgb (11.5-15.3) g/dL Hct (37.0-47.0) % MCV (81-99) fL MCH (28.0-34.0) pg MCHC (30.0-36.0) g/dL RDW (12.1-15.1) % Plt Count (130-400) 10^3/c mm MPV (7.4-10.4) fL Neut % (Auto) % Lymph % (Auto) % [place] % (Auto) % Eos % (Auto) % Baso % (Auto) % Neut # (Auto) (1.8-7.7) 10^3/u L Lymph # (Auto) (0.8-4.8) 10^3/u L [place] # (Auto) (0.2-0.9) 10^3/u L Eos # (Auto) (0.0-0.8) 10^3/u L Baso # (Auto) (0.0-0.1) 10^3/u L Nucleated RBC % (a uto) % Nucleated RBCs # /100WBC Sodium 137 (136-145) mmol/L Potassium 3.9 (3.5-5.1) mmol/L Chloride 102 (98-107) mmol/L Carbon Dioxide 24 (22-29) mmol/L Anion Gap 14.9 (5-19) BUN 17 (6-20) mg/dL Creatinine 0.8 (0.5-0.9) mg/dL GFR Calculation 89.7 L (90-130) mL/min Glucose 92 (74-109) mg/dL Calcium 10.0 (8.6-10.0) mg/Dl Total Bilirubin 0.3 (0.15-1.2) mg/dL AST 17 (0-32) U/L ALT 18 (0-33) U/L Alkaline Phosphata se 117 H (35-105) IU/L Total Protein 7.7 (6.6-8.7) g/dL Albumin 4.6 (3.5-5.2) g/dL Globulin 3.1 (1.3-4.6) g/dL HCG, Qual (Negative) Urine Color (Yellow) Urine Appearance (CLEAR) Urine pH (5-7) Ur Specific Gravit y (1.005-1.030) Urine Protein (Negative) Urine Glucose (UA) (Normal) Urine Ketones (Negative) Urine Occult Blood (Negative) Urine Nitrate (Negative) Urine Bilirubin (NEGATIVE) Urine Urobilinogen (Negative) mg/dL Ur Leukocyte Dolores ase (Negative) Discharge Plan Discharge Patient Disposition: Home, Self-Care Clinical Impression: Abdominal pain, Ovarian cyst Condition: Stable Prescriptions: New hydrocodone-acetaminophen 5-325 mg tablet 1 tab PO Q6H PRN (Reason: pain) Qty: 14 RF: 0 No Action ondansetron HCl [Zofran] 4 mg tablet 4 mg PO DAILY PRN (Reason: nausea and vomiting) 5 Days RF: 0 ibuprofen 600 mg Tablet 600 mg PO PRN RF: 0 Discharge Orders: Discharge Order (Routine); Ordered 06/16/19 Ordered By: Dash Ferraro Patient Instructions: Cholecystitis (ED), Abdominal Pain (ED) Activity Restrictions/Additional Instructions: Return if any further problems. Case management will call to assist to getting set up with a primary care physician. Discharge Date/Time: 06/16/19 15:31 Coding Level of Care Code ED Head Of Data for Chg Fwd Exam Problem Focused
--- NOTE | 2019-06-16 11:06 | CT_ITS ---
WS: [id number] CT ABDOMEN PELVIS TECHNIQUE: Contrast-enhanced CT of the abdomen and pelvis with coronal and sagittal reformatted image s. CLINICAL INFORMATION: Right lower quadrant abdominal pain history of ovarian cyst COMPARISON: 020 DLP: 1775.[address] scans at [facility] use at least one of these dose optimization techniques: automat ed exposure control; mA and/or kV adjustment per patient size (includes targeted exams where dose is matched to clinical indication); or iterative reconstruction. FINDINGS: Liver is normal in appearance. Normal gallbladder. Normal portal vein and splenic vein. Normal spleen . Normal GE junction. Pancreas is normal in appearance. Normal caliber abdominal aorta. Adrenal glands are normal. Normal renal parenchymal enhancement. No hydronephrosis. Lung bases are we ll aerated. Colon is normal in appearance. Small bowel has a more normal appearance today. No evidenc e of bowel obstruction. Air within the appendix. No evidence of acute appendicitis. Normal ileocecal valve. Stable appearing enhancing left ovarian cyst or corpus luteum cyst measuring 16 mm is unchanged. Sma ll amount of free fluid in the cul-de-sac. No abdominal lymphadenopathy. No inguinal lymphadenopathy. Fat-containing umbilical hernia. Notified Dash Ferraro DO at 06/16/2019 1:[address]/CT abdomen pelvis w con* [id number] IMPRESSION: 1. No evidence of acute appendicitis. 2. Stable peripheral enhancing left ovarian cyst or corpus luteum cyst measuri ng 16 mm. Small amount of free fluid in the cul-de-sac. 3. Small bowel is more normal appearance today. 4. Normal gallbladder.
[2019-06-16 11:23] LABS: Add Urine Microscopic? NO
[2019-06-16] MEDS: ondansetron 2 mg/ML SDV 2 mL 4 MG IVP (11:25)
[2019-06-16] MEDS: morphine 4 mg/mL SDV 1 mL IVP (11:25)
[2019-06-16 11:30] LABS: Basophils % 0.4 %; Eosinophils # 0.1 10^3/uL (0.0-0.8); Eosinophils % 1.9 %; Hematocrit 37.1 % (37.0-47.0); Hemoglobin 11.4 g/dL (11.5-15.3); Lymphocytes % 20.6 %; Mean Corpuscular HGB Conc 30.7 g/dL (30.0-36.0); Mean Corpuscular Hemoglobin 24.4 pg (28.0-34.0); Mean Corpuscular Volume 79.4 fL (81-99); Mean Platelet Volume 9.5 fL (7.4-10.4); Monocytes # 0.5 10^3/uL (0.2-0.9); Monocytes % 10.9 %; Neutrophils # 3.1 10^3/uL (1.8-7.7); Nucleated Red Blood Cells % 0 %; Platelet Count 314 10^3/cmm (130-400); Red Blood Count 4.67 10^6/uL (4.1-5.3); Red Cell Distribution Width 13.9 % (12.1-15.1); White Blood Count 4.8 10^3/uL (4.0-10.0)
[2019-06-16 11:56] LABS: Bilirubin Urine Neg (NEGATIVE); Blood Urine Neg (Negative); Glucose Urine UA Norm (Normal); Ketones Urine Negative (Negative); Leukocyte Esterase Urine Negative (Negative); Nitrate Urine Negative (Negative); Protein Urine Neg (Negative); Urine Appearance Clear (CLEAR); Urine Color Yellow (Yellow); Urobilinogen Urine Norm (Negative); pH Urine 5 (5-7)
[2019-06-16 12:02] LABS: HCG Qualitative Urine. Negative (Negative)
[2019-06-16] MEDS: iohexol 300 mg/mL 100 mL Btl IV (12:24)
[2019-06-16 13:00] LABS: Alanine Aminotransferase 18 U/L (0-33); Anion Gap 14.9 (5-19); Aspartate Amino Transferase 17 U/L (0-32); Blood Urea Nitrogen 17 mg/dL (6-20); Carbon Dioxide 24 mmol/L (22-29); Chloride 102 mmol/L (98-107); Glomerular Filtration Rate 89.7 mL/min (90-130); Glucose 92 mg/dL (74-109); Potassium 3.9 mmol/L (3.5-5.1); Sodium 137 mmol/L (136-145); Total Bilirubin 0.3 mg/dL (0.15-1.2); Total Protein 7.7 g/dL (6.6-8.7)
[2019-06-16 13:01] LABS: Albumin Level 4.6 g/dL (3.5-5.2); Alkaline Phosphatase 117 IU/L (35-105); Globulin 3.1 g/dL (1.3-4.6)
[2019-06-16 15:30] VITALS: BP 125/78; PULSE 75; RESP 16; O2SAT 98
--- NOTE | 2019-06-17 12:29 | DCPLANNER ---
vaccine manager had message to speak with patient about getting established with a primary care physician. vaccine manager spoke with patient, and she stated that she would like help in getting established with a physician. vaccine manager called the [facility], spoke with Katy, a follow up appointment was scheduled for Saturday, June 22, 2019 at 2:[address] Dias. vaccine manager called patient and informed patient of the scheduled appointment.
== END 2019-06-16 15:31 | disposition home or self-care (01) ==
PROVIDERS: Emergency Provider Family Medicine
DX: N83.209 Unspecified ovarian cyst, unspecified side (principal)
CPT/HCPCS: 74177; 80053; 81003; 81025; 85025; 96374; 99282; J2270; J2405; Q9967

== ENCOUNTER 2019-06-17 22:24 | Emergency (ER) | payer MEDICAID, SELFPAY ==
[2019-06-17 22:27] VITALS: BP 152/99; PULSE 90; RESP 17; TEMP 37.2; O2SAT 100; BMI 33.3
--- NOTE | 2019-06-17 22:31 | ED_ITS ---
Entered by Clau Hall, acting as scribe for Jessica Pike Jorden Jun 17, 2019 22:24 HPI - Abdominal Pain General: Chief Complaint: Abdominal Pain Stated Complaint: abd pain Time Seen by Provider: 06/17/19 22:31 Source: patient Mode of arrival: ambulatory Limitations: no limitations History of Present Illness: HPI narrative: 23 yo f came to the er for abd pain. Onset was 3 days ago. Pt states that the lower part of the abd was in pain. PT states that it hurt to sit or stand and has not gotten any better. Pt states that she has had a headache, nausea, and some mild discharge. Pt states that she feels dizzy and lightheaded when she stands up. MD elicited complaint: abdominal pain Pertinent past history: none Pain Consistency: constant Location: RLQ, LLQ and Suprapubic Severity: mild Quality: cramping Radiation: epigastric Migration to: no migration Exacerbating factors: nothing Relieving factors: nothing Associated Symptoms: Reports nausea; Denies chills, coffee ground emesis, constipation, GI cramping, diarrhea, dysuria, fever(s), hematochezia, hematuria, hematemesis, melena, syncope and vomiting Related Data: Date of Last Menstrual Period: 06/02/19 Review of Systems General: Reports: other (negative unless marked) Const: Denies: fever, chills, body aches, fatigue, malaise or diaphoresis Eyes: Denies: change in vision or blurry vision ENMT: Denies: enlarged tonsils Card: Denies: chest pain, palpitations, irregular heart rhythm, syncope, pre- syncope, shortness of breath on exertion or shortness of breath when lying down Resp: Denies: shortness of breath, productive cough, non-productive cough, wheezing, coughing up blood or chest congestion GI: Reports: nausea; Denies: abdominal pain, vomiting, vomiting blood, coffee grounds in vomit, diarrhea, constipation, cramping, blood in stool or black tarry stool : Denies: flank pain, painful urination, urinary frequency, urinary urgency, decreased urine ouput, urinary incontinence or blood in urine Musc: Denies: neck pain, back pain, extremity pain, extremity swelling, joint pain, joint swelling, joint warmth or joint stiffness Skin/Breast: Denies: rash, skin tenderness or yellow skin Neuro: Denies: headache, numbness in extremities, weakness in extremities, changes in sensation, lack of coordination, difficulty walking, dizziness, vertigo or confusion Endo: Denies: excessive thirst, tired all the time, cold intolerance, excessive sweating, flushing or hot flashes Parminder/Lymph: Denies: easy bruising, easy bleeding, petechiae or enlarged lymph nodes All/Imm: Denies: hives, throat swelling, tongue swelling, facial swelling or acute wheezing PFSH ED PFSH: Statuses (acute, chronic, etc) shown below reflect problem list status as previously entered and may not be historically accurate Medical History (Updated 06/18/19 @ 01:34 by Royce Purdy MD) No pertinent past medical history (Acute) Surgical History Hx of tonsillectomy (Acute) Previous section (Acute) Family History (Updated 06/18/19 @ 01:35 by Royce Purdy MD) Denies family history of Clotting disorder Dementia Chronic kidney disease (CKD) Cancer Social History (Updated 06/18/19 @ 01:34 by Royce Purdy MD) Smoking and tobacco status: never smoked Alcohol intake: never Substance/Drug Use: never Household members: spouse Marital status: Female Reproductive History: Date of last menstrual period: 06/02/19 Physical Exam Const: COMMON NORMALS: no apparent distress, oriented x3, no limitations, healthy appearing and well nourished EXAM LIMITATIONS: no altered mental status GENERAL APPEARANCE: cooperative, well kempt and well developed ORIENTATION/CONSCIOUSNESS: Yes awake HENMT: COMMON NORMALS: normocephalic, head/scalp atraumatic, hearing grossly normal bilaterally, external ears normal, EAC's normal, external nose normal and moist oral mucous membranes HEAD & SCALP: normal to inspection, normocephalic and atraumatic FACE & SINUS: normal facial exam and face symmetric NOSE: external nose normal and nares normal EXTERNAL EAR: Yes external ears normal EXTERNAL AUDITORY CANAL: EAC's normal MOUTH: oral and palatal mucosa normal and tongue normal Eye: COMMON NORMALS: PERRL, EOMs intact bilaterally, conjunctivae normal and no scleral icterus GENERAL EYE: normal appearance of both eyes and normal light reflex CONJUNCTIVA: Yes conjunctivae normal SCLERA: sclerae normal CORNEA: Yes corneas normal PUPIL: Yes PERRL DIRECT OPHTHALMOSCOPY: Yes normal light reflex Neck/C-Spine: COMMON NORMALS: full ROM, no lymphadenopathy, supple, no meningeal signs and no JVD GENERAL: Yes normal visual inspection and Yes trachea midline CERVICAL SPINE: Yes cervical ROM normal Chest: COMMONS NORMALS: inspection of chest normal and palpation of chest normal Resp: COMMON NORMALS: normal respiratory effort, no retractions, no use of accessory muscles and clear to auscultation bilaterally EFFORT & INSPECTION: Yes able to speak in complete sentences AUSCULTATION: clear to auscultation bilaterally Cardio: COMMON NORMALS: no JVD, regular rate, regular rhythm, S1 normal heart sound, S2 normal heart sound, no gallops, no clicks, no murmurs and no rub JUGULAR VENOUS DISTENTION: no JVD RATE: regular rate RHYTHM: regular rhythm HEART SOUNDS: S1 normal and S2 normal GI: COMMON NORMALS: soft to palpation, non-tender, no hepatosplenomegaly and no masses INSPECTION: Yes normal to inspection PALPATION: Yes soft and Yes no hepatosplenomegaly : COMMON NORMALS: Yes no CVA tenderness BLADDER/KIDNEY EXAM: Yes no CVA tenderness Back/Pelvis: COMMON NORMALS: no CVA tenderness, thoracic and lumbar spine normal to inspection, no thoracic nor lumbar tenderness and thoraco-lumbar ROM normal Extremity: COMMON NORMALS: normal to inspection, full ROM, normal capillary refill, no joint enlargement, no clubbing, cyanosis or edema and no calf tenderness Neuro: COMMON NORMALS: oriented x3, CN's II-XII intact bilaterally, moves all extremities, no focal motor deficits and no sensory deficits noted MENINGEAL SIGNS: Yes no meningeal signs Psych: COMMON NORMALS: mental status grossly normal, thought process normal, cooperative, affect normal, speech normal and activity/motor behavior normal APPEARANCE: Yes well kempt SPEECH: Yes normal speech THOUGHT PROCESS: normal thought process Skin: COMMON NORMALS: no rashes or lesions noted, skin turgor normal, no jaundice, no petechiae and no mottling GENERAL SKIN EXAM: no rashes or lesions noted and turgor normal Course Vital Signs: Vital signs: Vital Signs Temperature 99.0 F 06/17/19 22:27 Pulse Rate 90 06/17/19 22:27 Respiratory Rate 17 06/17/19 22:27 Blood Pressure 152/99 06/17/19 22:27 Pulse Oximetry 100 06/17/19 22:27 MDM - Abdominal Pain MDM Narrative: Medical decision making narrative: Tameka is a nice 23-year-old female who comes in for the third straight day with a lower abdominal pain. Today she also complains of upper abdominal pain. Her labs are unremarkable. She did have some vaginal discharge but a pelvic exam shows no sign of cervical motion tenderness vaginal discharge of significance or vaginal bleeding. Her wet prep is unremarkable. I see no sign of PID clinically or by lab. She does not want a third CAT scan in 3 days. With her labs being normal I think appendicitis is unlikely especially as she had a CT scan on day 2 which was actually into the third day of her illness and her appendix was unremarkable. I would believe based upon typical timelines of appendicitis this should have been present although it is still possible and I have explained this to her but she wants to hold off repeating a CT. I reviewed the case in full w ith Dr. Dominguez who does not think a HIDA scan is likely to be helpful in diagnosing her lower abdominal pain but may address her gallbladder epigastric issues. The patient is very concerned about going home as she has been throwing up so much today and that is her primary complaint today. I have reviewed the case in full with Dr. Jones who is agreeable to admission for intractable vomiting. He will hydrate her, treat her nauseousness and vomiting and will make a determination about a possible consult with the surgery in the morning. On repeat exam I see no evidence of peritonitis or acute surgical abdomen. Differential Diagnosis: Differential diagnosis abdominal pain: Likely abdominal pain, acute appendicitis, calculus of kidney, constipation, diverticulitis, endometriosis, gastroenteritis, pancreatitis and small bowel obstruction Lab Data: Attestation: I reviewed the patient's lab results. Labs: Lab Results 06/17/19 06/17/19 06/17/19 Range/Units 22:30 22:30 22:30 WBC (4.0-10.0) 10^3/ uL RBC (4.1-5.3) 10^6/u L Hgb (11.5-15.3) g/dL Hct (37.0-47.0) % MCV (81-99) fL MCH (28.0-34.0) pg MCHC (30.0-36.0) g/dL RDW (12.1-15.1) % Plt Count (130-400) 10^3/c mm MPV (7.4-10.4) fL Neut % (Auto) % Lymph % (Auto) % Swisher % (Auto) % Eos % (Auto) % Baso % (Auto) % Neut # (Auto) (1.8-7.7) 10^3/u L Lymph # (Auto) (0.8-4.8) 10^3/u L Swisher # (Auto) (0.2-0.9) 10^3/u L Eos # (Auto) (0.0-0.8) 10^3/u L Baso # (Auto) (0.0-0.1) 10^3/u L Nucleated RBC % (a uto) % Nucleated RBCs # /100WBC Sodium (136-145) mmol/L Potassium (3.5-5.1) mmol/L Chloride (98-107) mmol/L Carbon Dioxide (22-29) mmol/L Anion Gap (5-19) BUN (6-20) mg/dL Creatinine (0.5-0.9) mg/dL GFR Calculation (90-130) mL/min Glucose (74-109) mg/dL Lactic Acid (0.5-2.2) mmol/L Calcium (8.5-10.5) mg/dL Total Bilirubin (0.15-1.2) mg/dL AST (0-32) U/L ALT (0-33) U/L Alkaline Phosphata se (35-105) IU/L Total Protein (6.6-8.7) g/dL Albumin (3.5-5.2) g/dL Globulin (1.3-4.6) g/dL Lipase (13-60) U/L HCG, Qual Negative (Negative) Urine Color Yellow (Yellow) Urine Appearance Clear (CLEAR) Urine pH 5 (5-7) Ur Specific Gravit y 1.020 (1.005-1.030) Urine Protein Neg (Negative) Urine Glucose (UA) Norm (Normal) Urine Ketones Negative (Negative) Urine Occult Blood Neg (Negative) Urine Nitrate Negative (Negative) Urine Bilirubin Neg (NEGATIVE) Urine Urobilinogen Norm (Negative) mg/dL Ur Leukocyte Dolores ase Negative (Negative) Urine RBC None (0-2) /hpf Urine WBC 0-4 H (0-5) /hpf Ur Squamous Epith Cells 5-10 H (0-5) Urine Bacteria 1+ H (NONE) Urine Mucus 1+ Urine Opiates Scre en Positve (Negative) ng/mL Ur Barbiturates Sc reen Negative (Negative) ng/mL Ur Phencyclidine S crn Negative (Negative) ng/mL Ur Amphetamines Sc reen Negative (Negative) ng/mL U Benzodiazepines Scrn Negative (Negative) ng/mL Urine Cocaine Scre en Negative (Negative) ng/mL U Marijuana (THC) Screen Negative (Negative) ng/mL 06/17/19 06/17/19 06/18/19 Range/Units 22:40 22:40 01:22 WBC 9.1 (4.0-10.0) 10^3/ uL RBC 4.69 (4.1-5.3) 10^6/u L Hgb 11.5 (11.5-15.3) g/dL Hct 37.1 (37.0-47.0) % MCV 79.1 L (81-99) fL MCH 24.5 L (28.0-34.0) pg MCHC 31.0 (30.0-36.0) g/dL RDW 13.9 (12.1-15.1) % Plt Count 320 (130-400) 10^3/c mm MPV 9.5 (7.4-10.4) fL Neut % (Auto) 76.6 % Lymph % (Auto) 13.2 % Swisher % (Auto) 8.4 % Eos % (Auto) 1.4 % Baso % (Auto) 0.2 % Neut # (Auto) 6.9 (1.8-7.7) 10^3/u L Lymph # (Auto) 1.2 (0.8-4.8) 10^3/u L Swisher # (Auto) 0.8 (0.2-0.9) 10^3/u L Eos # (Auto) 0.1 (0.0-0.8) 10^3/u L Baso # (Auto) 0.0 (0.0-0.1) 10^3/u L Nucleated RBC % (a uto) 0 % Nucleated RBCs # 0.0 /100WBC Sodium 138 (136-145) mmol/L Potassium 3.7 (3.5-5.1) mmol/L Chloride 103 (98-107) mmol/L Carbon Dioxide 23 (22-29) mmol/L Anion Gap 15.7 (5-19) BUN 15 (6-20) mg/dL Creatinine 0.7 (0.5-0.9) mg/dL GFR Calculation 104.6 (90-130) mL/min Glucose 102 (74-109) mg/dL Lactic Acid 0.6 (0.5-2.2) mmol/L Calcium 9.4 (8.5-10.5) mg/dL Total Bilirubin 0.2 (0.15-1.2) mg/dL AST 21 (0-32) U/L ALT 21 (0-33) U/L Alkaline Phosphata se 108 H (35-105) IU/L Total Protein 7.5 (6.6-8.7) g/dL Albumin 4.6 (3.5-5.2) g/dL Globulin 2.9 (1.3-4.6) g/dL Lipase 13 (13-60) U/L HCG, Qual (Negative) Urine Color (Yellow) Urine Appearance (CLEAR) Urine pH (5-7) Ur Specific Gravit y (1.005-1.030) Urine Protein (Negative) Urine Glucose (UA) (Normal) Urine Ketones (Negative) Urine Occult Blood (Negative) Urine Nitrate (Negative) Urine Bilirubin (NEGATIVE) Urine Urobilinogen (Negative) mg/dL Ur Leukocyte Dolores ase (Negative) Urine RBC (0-2) /hpf Urine WBC (0-5) /hpf Ur Squamous Epith Cells (0-5) Urine Bacteria (NONE) Urine Mucus Urine Opiates Scre en (Negative) ng/mL Ur Barbiturates Sc reen (Negative) ng/mL Ur Phencyclidine S crn (Negative) ng/mL Ur Amphetamines Sc reen (Negative) ng/mL U Benzodiazepines Scrn (Negative) ng/mL Urine Cocaine Scre en (Negative) ng/mL U Marijuana (THC) Screen (Negative) ng/mL Imaging Data ^: US: Radiologist's impression: Ultrasound gallbladder -tech interpretation, - gallstones present but no gallbladder wall thickening. Normal common bile duct. No pericholecystic fluid. Ultrasound pelvis -tech interpretation -no acute findings. Bilateral ovaries without cyst or torsion. No tubo-ovarian abscess is present. No free fluid. Uterus and cervix unremarkable. No acute findings. Discharge Plan Discharge Patient Disposition: Placed in Observation Clinical Impression: Abdominal pain Qualifiers: Abdominal location: generalized Qualified Code(s): R10.84 - Generalized abdominal pain Vomiting Qualifiers: Vomiting type: unspecified Vomiting Intractability: intractable Nausea presence: with nausea Qualified Code(s): R11.2 - Nausea with vomiting, unspecified Condition: Stable Coding Level of Care Code ED Secretary Specialist for Chg Fwd Exam Problem Focused The documentation recorded by the Rafael rivers Stephanie Lyn, accurately refl ects the service I personally performed and the decisions made by Shahzad hunter Eli N Jun 17, 2019 22:24
--- NOTE | 2019-06-17 22:32 | XRR_ITS ---
PROCEDURE INFORMATION: Exam: XR Chest, 1 View Exam date and time: 06/17/2019 10:55 PM Age: 23 years old Clinical indication: Cough; Additional info: Cough, abd pain TECHNIQUE: Imaging protocol: XR of the chest Views: 1 view. COMPARISON: No relevant prior studies available. FINDINGS: Lungs: Unremarkable. No consolidation. Pleural space: Unremarkable. No pleural effusion. No pneumothorax. Heart/Mediastinum: Unremarkable. No cardiomegaly. Bones/joints: Unremarkable. XR/XR chest 1V portable [id number] IMPRESSION: No acute findings.
[2019-06-17 22:50] LABS: Basophils % 0.2 %; Eosinophils # 0.1 10^3/uL (0.0-0.8); Eosinophils % 1.4 %; Hematocrit 37.1 % (37.0-47.0); Hemoglobin 11.5 g/dL (11.5-15.3); Lymphocytes # 1.2 10^3/uL (0.8-4.8); Lymphocytes % 13.2 %; Mean Corpuscular Hemoglobin 24.5 pg (28.0-34.0); Mean Corpuscular Volume 79.1 fL (81-99); Mean Platelet Volume 9.5 fL (7.4-10.4); Monocytes # 0.8 10^3/uL (0.2-0.9); Monocytes % 8.4 %; Neutrophils # 6.9 10^3/uL (1.8-7.7); Neutrophils % 76.6 %; Nucleated Red Blood Cells % 0 %; Platelet Count 320 10^3/cmm (130-400); Red Blood Count 4.69 10^6/uL (4.1-5.3); Red Cell Distribution Width 13.9 % (12.1-15.1); White Blood Count 9.1 10^3/uL (4.0-10.0)
[2019-06-17 22:53] LABS: HCG Qualitative Urine. Negative (Negative)
[2019-06-17 23:06] LABS: Alanine Aminotransferase 21 U/L (0-33); Albumin Level 4.6 g/dL (3.5-5.2); Alkaline Phosphatase 108 IU/L (35-105); Anion Gap 15.7 (5-19); Aspartate Amino Transferase 21 U/L (0-32); Blood Urea Nitrogen 15 mg/dL (6-20); Calcium 9.4 mg/dL (8.5-10.5); Carbon Dioxide 23 mmol/L (22-29); Chloride 103 mmol/L (98-107); Globulin 2.9 g/dL (1.3-4.6); Glomerular Filtration Rate 104.6 mL/min (90-130); Glucose 102 mg/dL (74-109); Lipase 13 U/L (13-60); Potassium 3.7 mmol/L (3.5-5.1); Sodium 138 mmol/L (136-145); Total Bilirubin 0.2 mg/dL (0.15-1.2); Total Protein 7.5 g/dL (6.6-8.7)
[2019-06-17] MEDS: sodium chloride 0.9% 1,000 ML 999 ML IV (23:14)
[2019-06-17] MEDS: ondansetron 2 mg/ML SDV 2 mL 4 MG IVP (23:15)
[2019-06-18] VITALS (55 sets, daily range): BP systolic 109–146; BP diastolic 72–81; PULSE 68–87; RESP 18; TEMP 36.9; O2SAT 95–100
[2019-06-18 00:10] LABS: Bacteria Urine 1+; Bilirubin Urine Neg (NEGATIVE); Blood Urine Neg (Negative); Glucose Urine UA Norm (Normal); Ketones Urine Negative (Negative); Leukocyte Esterase Urine Negative (Negative); Mucus Urine 1+; Nitrate Urine Negative (Negative); Protein Urine Neg (Negative); Urine Appearance Clear (CLEAR); Urine Color Yellow (Yellow); Urobilinogen Urine Norm (Negative); WBC Urine 0-4 /hpf (0-5); pH Urine 5 (5-7)
[2019-06-18 00:13] LABS: Amphetamines Screen Urine Negative (Negative); Barbiturates Screen Urine Negative (Negative); Benzodiazepines Screen Urine Negative (Negative); Cocaine Screen Urine Negative (Negative); PCP Screen Urine Negative (Negative); THC Screen Urine Negative (Negative)
--- NOTE | 2019-06-18 01:04 | P.HP_ITS ---
Providers/Chief Complaint Chief Complaint: abd pain History of Present Illness India Hernandez is a 23 year old female with no pertinent past medical history came in with chief complaint of abdominal pain. Patient is stating that her symptoms started 4 days ago. She noticed abdominal cramps around her waistline initially, it was not associated with fever, chills, nausea, vomiting, dysuria. These abdominal cramps progressed and then she started experiencing abdominal pain 4-6 intensity, dull crampy, she was seen in ER twice, she got CT abdomen which showed normal appendix gallbladder and positive for enteritis, she was discharged back home. At home she started having abdominal pain around her right lower quadrant, hypogastric area it was nonradiating, she did not notice any fever chills, no recent flulike symptoms no recent traveling camping or traveling outside [facility]. She has had 5-6 episodes of emesis. Diagnostics in ER showed normal hemodynamics, she is afebrile, normal blood work, ultrasound abdomen was ordered with HIDA scan. Patient is denying diarrhea, constipation, mucus in stool, bleed per rectum. Review of Systems Const: Denies: fever, chills or body aches Eyes: Denies: change in vision ENMT: Denies: throat pain Card: Denies: chest pain or palpitations Resp: Denies: shortness of breath GI: Reports: abdominal pain, nausea, vomiting and cramping; Denies: vomiting blood, coffee grounds in vomit, difficulty swallowing or constipation : Denies: flank pain or difficulty urinating Musc: Denies: neck pain Skin/Breast: Denies: rash Neuro: Denies: headache Psych: Denies: anxiety Endo: Denies: excessive urination Parminder/Lymph: Denies: easy bruising All/Imm: Denies: hives Medications/Allergies Allergies Allergy/AdvReac Type Severity Reaction Status Date / Time Penicillins Allergy ALGY-Swell Verified 06/17/19 22:31 Lip/Tongue/Throat PFSH Acute PFSH: Statuses (acute, chronic, etc) shown below reflect problem list status as previously entered and may not be historically accurate Medical History (Updated 06/18/19 @ 01:34 by Royce Purdy MD) No pertinent past medical history (Acute) Surgical History Hx of tonsillectomy (Acute) Previous section (Acute) Family History (Updated 06/18/19 @ 01:35 by Royce Purdy MD) Denies family history of Clotting disorder Dementia Chronic kidney disease (CKD) Cancer Social History (Updated 06/18/19 @ 01:34 by Royce Purdy MD) Smoking and tobacco status: never smoked Alcohol intake: never Substance/Drug Use: never Household members: spouse Marital status: Female Reporductive History: Date of last menstrual period: 06/02/19 Vitals/I&O/Wt Last Vital Signs Temp 99.0 F 06/17/19 22:27 Pulse 90 06/17/19 22:27 Resp 17 06/17/19 22:27 BP 152/99 06/17/19 22:27 Pulse Ox 100 06/17/19 22:27 06/17/19 06/17/19 06/18/19 14:59 22:59 06:59 Intake Total 1100 / 1100 Balance 1100 / 1100 Weight last 48 hrs Weight 90.718 kg Physical Exam Narrative: EXAM NARRATIVE: Morbidly obese female Sitting comfortably in her bed PERRLA, EOMI, Skin does not show any signs of ischemia gangrene also S1-S2 no signs of heart failure JVD or lower extremity edema Lungs are clear to auscultation Neurologically nonfocal exam Abdomen is soft, obese obesity positive, River's sign negative, no tenderness on superficial palpation however deep palpation elicits tenderness around hypogastric and right lower quadrant, bowel sounds present, sluggish in nature, CVA tenderness negative Appropriate mood and affect Data : 06/17/19 22:40 06/17/19 22:40 Micro: Microbiology 06/17/19 23:13 Wet Prep - Final Vaginal A&P Assessment and plan (1) Vomiting: Status: Acute Qualifiers: Nausea presence: with nausea Vomiting Intractability: intractable Vomiting type: unspecified Qualified Code(s): R11.2 - Nausea with vomiting, unspecified Code(s): R11.10 - Vomiting, unspecified (2) Abdominal pain: Status: Acute Qualifiers: Abdominal location: generalized Qualified Code(s): R10.84 - Generalized abdominal pain Code(s): R10.9 - Unspecified abdominal pain (3) Ovarian cyst: Status: Acute Code(s): N83.209 - Unspecified ovarian cyst, unspecified side Additional A&P Information Abdominal pain with nausea and vomiting Right lower quadrant and hypogastric area tenderness with cramps No fever, no leukocytosis, will check lactic acid, CT abdomen shows enteritis, normal appendix, gallbladder Right ovarian cyst without signs of necrosis Bowel sounds positive without active signs of cholecystitis Hemodynamically stable, Needs IV fluid resuscitation, antiemetics, no need of antibiotics HIDA scan in the morning Reevaluate for general surgery consult if needed in the a.m. Clear liquid diet advance as tolerated Her U tox is negative for marijuana opiates were given in ED because of her recent evaluation No exposure to tuberculosis, less likely to be inflammatory bowel disease, DVT prophylaxis: Lovenox GI prophylaxis: Protonix and GI cocktail Full code Attestations Medical Necessity Statement*: Anticipating discharge in less than 48 hours she is being admitted because of nausea and vomiting and worsening abdominal pain Time Spent in Patient Care: 45 Coding Level of Care Code Acute Print Production Coordinator for Chg Fwd Diagnoses Vomiting R11.2 Nausea presence: with nausea Vomiting Intractability: intractable Vomiting type: unspecified Abdominal pain R10.84 Abdominal location: generalized Ovarian cyst N83.209
[2019-06-18 01:39] LABS: Lactic Acid 0.6 mmol/L (0.5-2.2)
--- NOTE | 2019-06-18 02:26 | NM_ITS ---
WS: [id number] NUCLEAR MEDICINE HIDA SCAN WITH GALLBLADDER EJECTION FRACTION HISTORY: GALL STONE COMPARISON: Ultrasound 06/18/[address] abdomen 06/16/2019 TECHNIQUE: The patient was intravenously injected with 7.5 mCi of TC99m Mebrofenin. Immediate imaging over the right upper quadrant was followed by 5 minute image and additional images for a total of 12 0 minutes. Normal uptake of radiotracer throughout the liver. No significant amount of activity is noted in the gallbladder by 120 minutes. Questionable tiny amoun t of increased activity at 120 minutes. Not sufficient to call this normal. As the gallbladder did not fill no ejection fraction will be performed. NM/NM hepatobiliary w phar* [id number] IMPRESSION: 1. Abnormal HIDA scan. Gallbladder does not fill at 120 minutes. 2. Findings highly suggestive of acute cholecystitis with cystic duct obstruct ion. Common bile duct is patent.
[2019-06-18] MEDS: enoxaparin 40 mg/0.4 mL Syringe SUBCUT (02:51)
[2019-06-18] MEDS: lactated ringers 1,000 ML 75 ML IV (02:51)
[2019-06-18] MEDS: morphine 4 mg/mL SDV 1 mL 2 MG IVP (02:51)
[2019-06-18] MEDS: ondansetron 2 mg/ML SDV 2 mL 4 MG IVP (02:52)
[2019-06-18 05:08] LABS: Basophils % 0.4 %; Eosinophils # 0.1 10^3/uL (0.0-0.8); Eosinophils % 2.1 %; Hematocrit 33.2 % (37.0-47.0); Hemoglobin 10.3 g/dL (11.5-15.3); Lymphocytes # 1.3 10^3/uL (0.8-4.8); Lymphocytes % 22.7 %; Mean Corpuscular Hemoglobin 24.8 pg (28.0-34.0); Mean Corpuscular Volume 79.8 fL (81-99); Mean Platelet Volume 10.2 fL (7.4-10.4); Monocytes # 0.5 10^3/uL (0.2-0.9); Monocytes % 8.4 %; Neutrophils # 3.8 10^3/uL (1.8-7.7); Neutrophils % 66.2 %; Nucleated Red Blood Cells % 0 %; Platelet Count 269 10^3/cmm (130-400); Red Blood Count 4.16 10^6/uL (4.1-5.3); Red Cell Distribution Width 13.8 % (12.1-15.1); White Blood Count 5.7 10^3/uL (4.0-10.0)
[2019-06-18 05:24] LABS: Alanine Aminotransferase 19 U/L (0-33); Albumin Level 4.2 g/dL (3.5-5.2); Alkaline Phosphatase 99 IU/L (35-105); Anion Gap 15.8 (5-19); Aspartate Amino Transferase 19 U/L (0-32); Blood Urea Nitrogen 14 mg/dL (6-20); Carbon Dioxide 22 mmol/L (22-29); Chloride 106 mmol/L (98-107); Globulin 2.5 g/dL (1.3-4.6); Glucose 99 mg/dL (74-109); Potassium 3.8 mmol/L (3.5-5.1); Sodium 140 mmol/L (136-145); Total Bilirubin 0.3 mg/dL (0.15-1.2); Total Protein 6.7 g/dL (6.6-8.7)
--- NOTE | 2019-06-18 07:05 | PC.NURSE ---
report received from JUAN Mas
--- NOTE | 2019-06-18 11:20 | PC.NURSE ---
PT OFF UNIT TO NUCLEAR MEDICINE FOR HYDA SCAN
--- NOTE | 2019-06-18 13:39 | PC.NURSE ---
pt back from nuclear medicine
--- NOTE | 2019-06-18 14:48 | PM.PN ---
Subjective Subjective: Interval history: Patient is seen and examined in the ED. She states that her abdominal pain is involving the suprapubic area in the right upper quadrant and still bothersome to her. She does not have any further episodes of vomiting. Her HIDA scan returned as positive for cholelithiasis with cholecystitis. Additional history this morning is that patient is 4 months after having a for twin delivery. She was diagnosed with preeclampsia during and had elevated liver enzymes and possible cholestasis. she shad several US while she was ; gallstones were not mentioned. Her LFT abnormalities resolved quickly post her delivery. Medications: Reviewed: Yes Vitals/I&O/Wt Last Vital Signs Temp 98.4 F 06/18/19 02:53 Pulse 76 06/18/19 13:51 Resp 18 06/18/19 02:53 BP 121/76 06/18/19 13:51 Pulse Ox 98 06/18/19 13:51 06/17/19 06/18/19 06/18/19 22:59 06:59 14:59 Intake Total 1300 / 1300 Balance 1300 / 1300 Weight last 48 hrs Weight 90.718 kg Physical Exam Narrative: EXAM NARRATIVE: GEN: Awake, alert and oriented, no acute distress CVS: S1S2 N RS: CTA B/L all areas, no added sounds Abd: Soft, non distended, discomfort to palpation + over RUQ, worsened with deep breathing. No rebound or guarding appreviable to me. Also reports discomfort to palpation in suprapubic area. AIR TRAFFIC SYSTEMS TECHNICIAN: no focal neuro deficits Sepsis: Is patient septic: No Focused sepsis exam performed: No Data : 06/18/19 05:01 06/18/19 05:01 Micro: Microbiology 06/17/19 22:30 Chlamydia trachomatis ([facility]) - Final Urine Random Neisseria gonorrhoeae ([facility]) - Final 06/17/19 23:13 Wet Prep - Final Vaginal A&P Assessment and plan (1) Cholelithiasis: Status: Acute Code(s): K80.20 - Calculus of gallbladder without cholecystitis without obstruction (2) Vomiting: Status: Acute Qualifiers: Nausea presence: with nausea Vomiting Intractability: intractable Vomiting type: unspecified Qualified Code(s): R11.2 - Nausea with vomiting, unspecified Code(s): R11.10 - Vomiting, unspecified Coding Level of Care Code Acute Head Turbine Operator for Chg Fwd Diagnoses Cholelithiasis K80.20 Vomiting R11.2 Nausea presence: with nausea Vomiting Intractability: intractable Vomiting type: unspecified
--- NOTE | 2019-06-18 14:56 | PM.DCS ---
Discharge Providers Date of Discharge: 06/18/19 Diagnoses at Discharge Discharge Diagnosis (1) Cholelithiasis: Status: Acute (2) Vomiting: Status: Acute Qualifiers: Nausea presence: with nausea Vomiting Intractability: intractable Vomiting type: unspecified Qualified Code(s): R11.2 - Nausea with vomiting, unspecified Reason for Visit Reason for Visit: Reason For Visit: abd pain Hospital Course Discharge Summary: 23 year old female, recently post after twin delivery 4 months ago complicated by pre eclampsia and elevated liver enzymes/?possible cholestasis presented with chief complaint of abdominal pain. Patient is stating that her symptoms started 4 days ago. She noticed abdominal cramps around her waistline initially, it was not associated with fever, chills, nausea, vomiting, dysuria. These abdominal cramps progressed and then she started experiencing abdominal pain 4-6 intensity, dull crampy, she was seen in ER twice, she got CT abdomen which showed normal appendix gallbladder and positive for enteritis, she was discharged back home. At home she started having abdominal pain around her right lower quadrant, hypogastric area it was nonradiating, she did not notice any fever chills, no recent flulike symptoms no recent traveling camping or traveling outside [facility]. She has had 5-6 episodes of emesis. Diagnostics in ER showed normal hemodynamics, afebrile, normal blood work, ultrasound abdomen with cholelithiasis. A HIDA scan was additionally performed, which showed cholelithiasis and cholecystitis. She was seen by Dr. Dominguez from surgery. She was offered options for cholecystectomy now vs as outpatient, and elected to wait and follow up in clinic. At time of discharge, she is denying any diarrhea, vomiting, constipation, mucus in stool, bleed per rectum. Pain is improving Physical Exam Narrative: EXAM NARRATIVE: GEN: Awake, alert and oriented, no acute distress CVS: S1S2 N RS: CTA B/L all areas, no added sounds Abd: Soft, non distended, discomfort to palpation + over RUQ, worsened with deep breathing. No rebound or guarding appreviable to me. Also reports discomfort to palpation in suprapubic area. 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: no focal neuro deficits Discharge Data Data Completed and Pending: Completed Studies During Hospitalization Category Date Time Status XR chest 1V jigna ble [id number] Stat Exams 06/17/19 22:32 Completed NM hepatobiliary w phar* [id number] Rout ine Nuc Med 06/18/19 02:26 Completed US abdomen comple te* [id number] Urgent Ultrasound 06/18/19 22:43 Completed US pelvic complet e* [id number] Urgent Ultrasound 06/18/19 22:43 Completed Labs from last 24 hours 06/18/19 06/18/19 06/18/19 05:01 05:01 01:22 WBC 5.7 RBC 4.16 Hgb 10.3 L Hct 33.2 L MCV 79.8 L MCH 24.8 L MCHC 31.0 RDW 13.8 Plt Count 269 MPV 10.2 Neut % (Auto) 66.2 Lymph % (Auto) 22.7 [place] % (Auto) 8.4 Eos % (Auto) 2.1 Baso % (Auto) 0.4 Neut # (Auto) 3.8 Lymph # (Auto) 1.3 [place] # (Auto) 0.5 Eos # (Auto) 0.1 Baso # (Auto) 0.0 Nucleated RBC % (a uto) 0 Nucleated RBCs # 0.0 Sodium 140 Potassium 3.8 Chloride 106 Carbon Dioxide 22 Anion Gap 15.8 BUN 14 Creatinine 0.6 GFR Calculation 125.0 Glucose 99 Lactic Acid 0.6 Calcium 9.0 Total Bilirubin 0.3 AST 19 ALT 19 Alkaline Phosphata se 99 Total Protein 6.7 Albumin 4.2 Globulin 2.5 Lipase HCG, Qual Urine Color Urine Appearance Urine pH Ur Specific Gravit y Urine Protein Urine Glucose (UA) Urine Ketones Urine Occult Blood Urine Nitrate Urine Bilirubin Urine Urobilinogen Ur Leukocyte Dolores ase Urine RBC Urine WBC Ur Squamous Epith Cells Urine Bacteria Urine Mucus Urine Opiates Scre en Ur Barbiturates Sc reen Ur Phencyclidine S crn Ur Amphetamines Sc reen U Benzodiazepines Scrn Urine Cocaine Scre en U Marijuana (THC) Screen 06/17/19 06/17/19 06/17/19 22:40 22:40 22:30 WBC 9.1 RBC 4.69 Hgb 11.5 Hct 37.1 MCV 79.1 L MCH 24.5 L MCHC 31.0 RDW 13.9 Plt Count 320 MPV 9.5 Neut % (Auto) 76.6 Lymph % (Auto) 13.2 [place] % (Auto) 8.4 Eos % (Auto) 1.4 Baso % (Auto) 0.2 Neut # (Auto) 6.9 Lymph # (Auto) 1.2 [place] # (Auto) 0.8 Eos # (Auto) 0.1 Baso # (Auto) 0.0 Nucleated RBC % (a uto) 0 Nucleated RBCs # 0.0 Sodium 138 Potassium 3.7 Chloride 103 Carbon Dioxide 23 Anion Gap 15.7 BUN 15 Creatinine 0.7 GFR Calculation 104.6 Glucose 102 Lactic Acid Calcium 9.4 Total Bilirubin 0.2 AST 21 ALT 21 Alkaline Phosphata se 108 H Total Protein 7.5 Albumin 4.6 Globulin 2.9 Lipase 13 HCG, Qual Urine Color Urine Appearance Urine pH Ur Specific Gravit y Urine Protein Urine Glucose (UA) Urine Ketones Urine Occult Blood Urine Nitrate Urine Bilirubin Urine Urobilinogen Ur Leukocyte Dolores ase Urine RBC Urine WBC Ur Squamous Epith Cells Urine Bacteria Urine Mucus Urine Opiates Scre en Positve Ur Barbiturates Sc reen Negative Ur Phencyclidine S crn Negative Ur Amphetamines Sc reen Negative U Benzodiazepines Scrn Negative Urine Cocaine Scre en Negative U Marijuana (THC) Screen Negative 06/17/19 06/17/19 22:30 22:30 WBC RBC Hgb Hct MCV MCH MCHC RDW Plt Count MPV Neut % (Auto) Lymph % (Auto) [place] % (Auto) Eos % (Auto) Baso % (Auto) Neut # (Auto) Lymph # (Auto) [place] # (Auto) Eos # (Auto) Baso # (Auto) Nucleated RBC % (a uto) Nucleated RBCs # Sodium Potassium Chloride Carbon Dioxide Anion Gap BUN Creatinine GFR Calculation Glucose Lactic Acid Calcium Total Bilirubin AST ALT Alkaline Phosphata se Total Protein Albumin Globulin Lipase HCG, Qual Negative Urine Color Yellow Urine Appearance Clear Urine pH 5 Ur Specific Gravit y 1.020 Urine Protein Neg Urine Glucose (UA) Norm Urine Ketones Negative Urine Occult Blood Neg Urine Nitrate Negative Urine Bilirubin Neg Urine Urobilinogen Norm Ur Leukocyte Dolores ase Negative Urine RBC None Urine WBC 0-4 H Ur Squamous Epith Cells 5-10 H Urine Bacteria 1+ H Urine Mucus 1+ Urine Opiates Scre en Ur Barbiturates Sc reen Ur Phencyclidine S crn Ur Amphetamines Sc reen U Benzodiazepines Scrn Urine Cocaine Scre en U Marijuana (THC) Screen Vitals: Last Vital Signs Temp 98.4 F 06/18/19 02:53 Pulse 76 06/18/19 13:51 Resp 18 06/18/19 02:53 BP 121/76 06/18/19 13:51 Pulse Ox 98 06/18/19 13:51 Discharge Plan Discharge Patient Disposition: Home, Self-Care Clinical Impression: Abdominal pain, Vomiting, Cholelithiasis Condition: Stable Prescriptions: New pantoprazole 40 mg Tablet,Delayed Release (Dr/Ec) 20 mg PO DAILY Qty: 0 RF: 0 Continued ondansetron HCl [Zofran] 4 mg tablet 4 mg PO DAILY PRN (Reason: nausea and vomiting) 5 Days RF: 0 ibuprofen 600 mg Tablet 600 mg PO PRN RF: 0 Discontinued hydrocodone-acetaminophen 5-325 mg tablet 1 tab PO Q6H PRN (Reason: pain) Qty: 14 RF: 0 Discharge Orders: Discharge Order (Routine); Ordered 06/18/19 Ordered By: Liane Tobar Referrals: Servando Dominguez MD [Physician] - 4-7 days Discharge Diet: Advance as tolerated, Low Cholesterol and Low Fat Discharge Activity: Resume usual activity Discharge Attestations Time Spent in Discharge Care*: less than 30 min Quality Metrics Clinical Quality Measures During this hospital stay, did patient experience: None Coding Level of Care Code 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
--- NOTE | 2019-06-18 14:57 | PC.NURSE ---
hospitalist (Amadou) in room to evaluate pt
--- NOTE | 2019-06-18 14:58 | PM.CONSULT ---
Providers/Reason For Consult Consulting Physican/Specialty*: General Surgery Servanod Dominguez MD Reason for Consult*: Abdominal pain, abnormal HIDA scan. History of Present Illness History of Present Illness India Hernandez is a 23 year old female who developed some lower abdominal cramping several days ago. This was associated with some diarrhea. She came to the emergency room and a CAT scan was done to rule out appendicitis. The appendix appeared normal (although the gallbladder showed perhaps some mild prominence) and so she was sent home. She returned the following day and another CAT scan was done; the appendix still appeared normal, and this time the gallbladder appeared normal. She once again went home. She returned yet one more time the following day, but said that she was having some pain in the epigastrium as well as the more significant pain in her lower abdomen. She was having some episodes of emesis. An ultrasound of her gallbladder was eventually done and revealed cholelithiasis but no evidence of cholecystitis. A HIDA scan actually was done which revealed nonfilling of the patient's gallbladder. Her white blood cell count and LFTs were all normal. After I met the patient, she told me that she was feeling considerably better and was actually wanting to go home. In short, she does not have any ongoing history of biliary colic at home. Review of Systems General: Reports: 10 or more systems reviewed and unremarkable except in HPI and below Const: Denies: fever GI: Reports: abdominal pain (She says the suprapubic pain that she has is still much worse than the upper abdominal discomfort), nausea and diarrhea; Denies: vomiting blood or white/light colored stool : Denies: difficulty urinating Meds/Allergies Home Medications and Allergies Home Medications Medication Instructions Recorded Confirmed Type ibuprofen 600 mg PO PRN 06/16/19 06/18/19 History Allergies Allergy/AdvReac Type Severity Reaction Status Date / Time Penicillins Allergy ALGY-Swell Verified 06/18/19 15:11 Lip/Tongue/Throat Current Medications Current Medications Generic Name Dose Route Start Last Admin Trade Name Freq PRN Reason Stop Dose Admin Enoxaparin Sodium 40 mg 06/18/19 02:26 06/18/19 02:51 Lovenox SUBCUT 40 mg Q24H RADHA Administration Lactated Ringer's 1,000 mls @ 75 mls/hr 06/18/19 02:26 06/18/19 02:51 Lactated Ringers IV 75 mls/hr .[id number] RADHA Administration Morphine Sulfate 2 mg 06/18/19 02:26 06/18/19 10:24 Morphine IVP Not Given Q4H RADHA Ondansetron HCl 4 mg 06/18/19 02:26 06/18/19 10:24 Zofran IVP Not Given Q6H RADHA Pantoprazole Sodium 20 mg 06/18/19 09:00 06/18/19 10:24 Protonix PO Not Given DAILY RADHA PFSH Acute PFSH: Statuses (acute, chronic, etc) shown below reflect problem list status as previously entered and may not be historically accurate Medical History (Updated 06/18/19 @ 15:12 by Servando Dominguez MD) Nephrolithiasis (Acute) Surgical History Hx of tonsillectomy (Acute) Previous section (Acute) Family History (Updated 06/18/19 @ 01:35 by Royce Purdy MD) Denies family history of Clotting disorder Dementia Chronic kidney disease (CKD) Cancer Social History (Updated 06/18/19 @ 01:34 by Royce Purdy MD) Smoking and tobacco status: never smoked Alcohol intake: never Household members: spouse Marital status: Female Reporductive History: Date of last menstrual period: 06/02/19 Vitals/I&O/Wt Last Vital Signs Temp 98.4 F 06/18/19 02:53 Pulse 76 06/18/19 13:51 Resp 18 06/18/19 02:53 BP 121/76 06/18/19 13:51 Pulse Ox 98 06/18/19 13:51 06/17/19 06/18/19 06/18/19 22:59 06:59 14:59 Intake Total 1300 / 1300 Balance 1300 / 1300 Weight last 48 hrs Weight 200 lb Physical Exam Narrative: EXAM NARRATIVE: The patient was encountered in the emergency room (she was still in the emergency room given the fact that the second floor did not have any available beds from the evening previously). She does not appear to be in any acute distress. She sitting up in her bed. Her pupils are equal. No carotid bruits are heard. The lungs are clear. The heart is regular. The abdomen is obese but is soft. She does have some mild?moderate tenderness in the suprapubic region. She also has some mild tenderness in the epigastrium and some mild tenderness in the right upper quadrant which is exacerbated by palpation and a deep inspiration, but River sign is negative. No obvious masses are palpated. The extremities reveal no edema. Neurologically the patient appears to be grossly intact. Data Labs: Other Labs: Laboratory Tests 06/17/19 06/18/19 22:40 05:01 Total Bilirubin 0.3 AST 19 ALT 19 Alkaline Phosphata se 99 Lipase 13 Micro: Micro: Microbiology 06/17/19 22:30 Chlamydia trachoma tis ([facility]BERT) - Final Urine Random Neisseria gonorrho eae ([facility]BERT) - Final 06/17/19 23:13 Wet Prep - Final Vaginal Other Data: Other data: Abdominal ultrasound 06/18/2019 iMPRESSION: 1. Cholelithiasis without acute cholecystitis. 2. No hepatic biliary duct dilatation. HIDA scan 06/18/2019 iMPRESSION: 1. Abnormal HIDA scan. Gallbladder does not fill at 120 minutes. 2. Findings highly suggestive of acute cholecystitis with cystic duct obstruction. Common bile duct is patent. A&P Assessment and plan (1) Cholelithiasis: The patient was seen to have cholelithiasis on her ultrasound, but no evidence of acute cholecystitis. She does not have any ongoing history of biliary colic at home, but I told her that her exam is certainly possibly consistent with early acute cholecystitis at this time, especially given the findings on the HIDA scan. She has been receiving narcotic pain medication which can interfere with ejection fractions, but I think it would be very unusual to see complete nonfilling of the gallbladder just secondary to this. She says she is actually feeling much better and would prefer to go home. I told her I would be happy to follow-up her with her as an outpatient or if she gets worse in the meantime, she will return to the hospital for further evaluation and treatment. Status: Acute Code(s): K80.20 - Calculus of gallbladder without cholecystitis without obstruction (2) Abdominal pain: The patient says her worst abdominal pain has always been over the lower abdomen, and continues to be over the lower abdomen, associated with diarrhea. I have to wonder if she is also dealing with some type of enteritis which may be confusing the entire picture here. Plan as above. Status: Acute Qualifiers: Abdominal location: generalized Qualified Code(s): R10.84 - Generalized abdominal pain Code(s): R10.9 - Unspecified abdominal pain Consult Attestations Medical Necessity Statement: See admitting service's notation. The patient is actually requesting to go home. She says she will come back if her symptoms worsen again. The patient's care was discussed with the hospitalist and I will be happy to see her if she returns with any new or increasing problems. 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
--- NOTE | 2019-06-18 22:43 | US_ITS ---
WS: [id number] TRANSABDOMINAL PELVIC ULTRASOUND HISTORY: Pain COMPARISON: None available. Uterus: 8.8 cm x 6.9 cm x 4.4 cm. Normal size and echogenicity. No fibroids are identified. Endometrium: 6.2 mm. Normal homogeneity and size. Right ovary: 3.0 cm x 2.4 cm x 2.3 cm; no solid or cystic mass.Normal vascularity. Left ovary: 3.2 cm x 2.3 cm x 2.7 cm; no solid or cystic mass.Normal vascularity. No free fluid in the cul-de-sac. US/US pelvic complete* [id number] IMPRESSION: Unremarkable transabdominal pelvic ultrasound.
--- NOTE | 2019-06-18 22:43 | US_ITS ---
WS: [id number] Complete ABDOMINAL ULTRASOUND HISTORY: Abdominal Pain COMPARISON: None available. Liver: 14.0 cm in length. Liver is normal size and echogenicity with no mass or intrahepatic dilatati on. Gallbladder: Well distended gallbladder. Numerous stones are present in the lumen measuring up to 1.5 cm. No pericholecystic fluid or gallbladder wall thickening. Gallbladder wall thickness: 3.0 mm. Pancreas: Poorly visualized. CBD: 4.2 mm. Right kidney: 9.6 cm x 5.6 cm x 4.6 cm. No mass, cortical thickening or hydronephrosis. Left kidney: 12.1 cm x 4.2 cm x 5.7 cm. No mass, cortical thickening or hydronephrosis. Spleen: Normal size and echogenicity. Abdominal aorta and IVC are within normal limits. No ascites. US/US abdomen complete* [id number] IMPRESSION: 1. Cholelithiasis without acute cholecystitis. 2. No hepatic biliary duct dilatation.
== END 2019-06-18 15:37 | disposition home or self-care (01) ==
LOC: ER 06-18 01:09 → OBGYN 06-18 13:45 → ER 06-18 15:07
PROVIDERS: Internal Medicine; Emergency Provider Emergency Medicine
DX: R10.84 Generalized abdominal pain (principal); R11.2 Nausea with vomiting, unspecified
CPT/HCPCS: 12345; 36415; 71045; 76700; 76856; 78226; 78227; 80053; 80307; 81001; 81025; 83605; 83690; 85025; 87210; 87491; 87591; 96360; 96365; 96372; 96374; 99284; A9537; J0131; J1650; J2270; J2405; J7030

== ENCOUNTER 2019-12-22 15:34 | Outpatient (CLI) | payer SELFPAY ==
[2019-12-22] VITALS (31 sets, daily range): BP systolic 0–169; BP diastolic 0–79; PULSE 77–107; RESP 17–18; TEMP 36.9–37.4; BMI 42.7
[2019-12-22] MEDS: lactated ringers 1,000 ML 999 ML IV (16:33)
[2019-12-22] MEDS: terbutaline 1 mg/mL INJ 0.25 MG SUBCUT ×2 (16:33→17:18)
[2019-12-22] MEDS: betamethasone susp 6 mg/mL 5 mL 12 MG IM (16:39)
[2019-12-22 17:20] LABS: Specific Gravity, Urine 1.015 (1.005-1.030); Urine Appearance Clear (CLEAR); Urine Color Yellow (Yellow); pH Urine 6 (5-7)
[2019-12-22 17:21] LABS: Bilirubin Urine Neg (NEGATIVE); Blood Urine Neg (Negative); Glucose Urine UA Norm (Normal); Ketones Urine Negative (Negative); Leukocyte Esterase Urine Negative (Negative); Nitrate Urine Negative (Negative); Protein Urine Neg (Negative); Urobilinogen Urine Norm (Negative)
[2019-12-22 17:29] LABS: Add Urine Culture? No; Bacteria Urine 2+; Mucus Urine 1+; RBC Urine 0-4 /hpf (0-2)
[2019-12-22 18:02] LABS: Basophils % 0.1 %; Eosinophils # 0.1 10^3/uL (0.0-0.8); Eosinophils % 0.7 %; Hematocrit 33.5 % (37.0-47.0); Hemoglobin 10.4 g/dL (11.5-15.3); Lymphocytes % 11.6 %; Mean Corpuscular Hemoglobin 25.6 pg (28.0-34.0); Mean Corpuscular Volume 82.3 fL (81-99); Mean Platelet Volume 9.6 fL (7.4-10.4); Monocytes # 0.6 10^3/uL (0.2-0.9); Monocytes % 6.3 %; Neutrophils # 7.09 10^3/uL (1.8-7.7); Nucleated Red Blood Cells % 0 %; Platelet Count 302 10^3/cmm (130-400); Red Blood Count 4.07 10^6/uL (4.1-5.3); Red Cell Distribution Width 14.6 % (12.1-15.1); White Blood Count 8.8 10^3/uL (4.0-10.0)
[2019-12-22 18:08] LABS: Alanine Aminotransferase 25 U/L (0-33); Albumin Level 3.9 g/dL (3.5-5.2); Alkaline Phosphatase 108 IU/L (35-105); Anion Gap 16.9 (5-19); Aspartate Amino Transferase 21 U/L (0-32); Blood Urea Nitrogen 9 mg/dL (6-20); Calcium 9.4 mg/dL (8.5-10.5); Carbon Dioxide 20 mmol/L (22-29); Chloride 104 mmol/L (98-107); Globulin 3.2 g/dL (1.3-4.6); Glomerular Filtration Rate 152.9 mL/min (90-130); Glucose 83 mg/dL (65-115); Osmolality Calculated 279 mOsm/kg (285-295); Potassium 3.9 mmol/L (3.5-5.1); Sodium 137 mmol/L (136-145); Total Bilirubin 0.2 mg/dL (0.15-1.2); Total Protein 7.1 g/dL (6.6-8.7); Uric Acid 2.9 mg/dL (2.4-5.7)
--- NOTE | 2019-12-22 18:56 | PM.OBGYHP ---
Providers/Chief Complaint Admitting Physician: Dr. Verónica Cardoso Primary FUR BUYER: Dr. Ant [facility] Chief Complaint: Abdominal pain HPI FUR BUYER History of Present Illness India Hernandez is a 24 year old female 3 para 1-1-0-3 with an EDC of 03/26/2020 as determined by early ultrasound as her LMP was known by month only (June 2019). She presents at 26-3/7 weeks gestation with complaint of abdominal cramping which began early this morning and has become more intense. She resides in [facility] and sees Dr. Ant Rodriguez and [facility] with her last appointment being approximately 4 weeks ago. She has a history of gestational hypertension with her first followed by preeclampsia with her second which was a twin gestation. With a twin gestation she was diagnosed with preeclampsia at 31 weeks gestation and was transferred to [facility] where she spent 5 weeks before undergoing a section at 36 weeks with her dichorionic diamniotic twins. She stated that she had noticed an increase in her blood pressure about a week ago and the onset of some edema. 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 She notes that she has headaches but has had headaches in the past. She reports no visual disturbances. She has had epigastric/right upper quadrant pain intermittently but also has a known history of cholelithiasis. She has had no nausea or vomiting. When asked, she has not been on aspirin. Present Details : 3 Para: 2 Date of Last Menstrual Period: 06/26/19 Calculated Date of Delivery: 04/01/20 Gestational Age Based on Last Menstrual Period: 25 Dating criteria OB: based on 1st trimester US only care: good care Ultrasounds: normal 1st trimester US and normal mid trimester US Obstetrical complications: gestational hypertension Medical complications OB: other (Obesity) Review of Systems Const: Denies: fever(s) or chills Eyes: Denies: change in vision, blurry vision or blind spots Card: Reports: swelling of feet/ankles; Denies: chest pain or dyspnea on exertion Resp: Denies: dyspnea, productive cough, non-productive cough or wheezing GI: Reports: abdominal pain (Occasional epigastric pain, none now); Denies: nausea or vomiting : Reports: pelvic pain ( Cramping ); Denies: dysuria, urinary urgency, vaginal odor, vaginal bleeding or vaginal discharge Neuro: Reports: headache(s) (States that she has these frequently); Denies: weakness in extremities, lack of coordination or Slurred speech present Psych: Denies: anxiety or depression Medications/Allergies Home Medications Medication Instructions Recorded Confirmed Last Taken Type 12/22/19 12/22/19 09:00 History iron 12/22/19 12/22/19 09:00 History Allergies Allergy/AdvReac Type Severity Reaction Status Date / Time Penicillins Allergy ALGY-Swell Verified 06/18/19 15:11 Lip/Tongue/Throat PFSH FUR BUYER PFSH: Medical History (Updated 12/22/19 @ 19:42 by Verónica Cardoso MD) Cholelithiasis Surgical History (Updated 12/22/19 @ 19:21 by Verónica Cardoso MD) Hx of adenoidectomy Hx of tonsillectomy Previous section Family History (Updated 06/18/19 @ 01:35 by Royce Purdy MD) Denies family history of Clotting disorder Dementia Chronic kidney disease (CKD) Cancer Social History (Updated 12/22/19 @ 19:22 by Verónica Cardoso MD) Smoking and tobacco status: never smoked Alcohol intake: never Substance/Drug Use: never Adopted: No Caregiver/support person: Yes Lives independently: Yes Household members: spouse, family and children Marital status: Number of children: 3 Number of grandchildren: 0 History History History 3 Term 1 Miscarriages/Ectopic 0 1 Living Children 3 Past Pregnancies Del. Date GA/Weeks Outcome Route Wt Inf Gender Labor Lgth Comp. Anesthesia Location 01/10/15 41 live - full term Vaginal 7 lb 15.5 oz Male Fourth degree laceration [facility] 02/27/19 36 live - full term 5 lb 5 oz Male [place], [place] Delivery Date: 01/10/15 Gestational hypertension, contractions twice in the late second and early third trimester requiring terbutaline each time, D antigen positive Verónica Cardoso Delivery Date: 02/27/19 Dichorionic diamniotic twin gestation, both twins were male, second twin weighed 6 pounds 2 ounces, preeclampsia diagnosed at 31 weeks with hospitalization through delivery at 36 weeks, elective section given fourth degree laceration with first delivery Verónica Cardoso Care VIPIN Calculator Estimated Delivery Date Method Current WG Current Estimate 03/26/20 Manual 26w 3d Early ultrasound secondary to uncertain LMP Other Estimates 04/01/20 LMP (Uncertain) 25w 4d Expected Delivery Route/Plan Repeat section Vitals/I&O/Wt Last Vital Signs Temp 99.4 F 12/22/19 16:14 Pulse 100 12/22/19 18:36 Resp 17 12/22/19 16:14 BP 163/79 12/22/19 18:36 Weight last 48 hrs Weight 257 lb Physical Exam Narrative: EXAM NARRATIVE: heart tones have had a baseline in the 150s with moderate variability and are appropriate for gestational age. She has had contractions as frequent as every 2 minutes but currently has no contractions. Const: COMMON NORMALS: no acute distress, patient oriented x3, healthy appearing, alert and well nourished NUTRITIONAL APPEARANCE: obese HENMT: COMMON NORMALS: normocephalic, external ears normal, Normal external nose present, moist oral mucous membranes and oropharynx normal Eye: COMMON NORMALS: Equal, round and reactive pupils present, EOMs intact bilaterally, conjunctivae normal and no scleral icterus Resp: COMMON NORMALS: normal respiratory effort, No retractions, No use of accessory muscles and clear to auscultation bilaterally Cardio: COMMON NORMALS: no JVD, regular rate, regular rhythm, S1 normal heart sound present, S2 normal heart sound present, No gallops present (Cardio), No clicks present (Cardio), No murmurs present (Cardio), No rub (Cardio) and Peripheral pulses 2+ throughout GI: COMMON NORMALS: non-tender, No hepatosplenomegaly present and no masses : MANUAL OB EXAM: dilated (Closed), effaced 0%, station high and other AMNIOTIC FLUID: no fluid Extremity: GENERAL: Yes edema (Trace) Neuro: COMMON NORMALS: patient oriented x3, CN's II-XII intact bilaterally, moves all extremities, no focal motor deficits and deep tendon reflexes 2+ bilaterally Psych: COMMON NORMALS: mental status grossly normal, Normal thought process present, cooperative, normal affect, speech normal and activity/motor behavior normal Data : 12/22/19 16:15 12/22/19 16:15 A&P Assessment and plan (1) 26 weeks gestation of : Status: Acute (2) Gestational hypertension without significant proteinuria during in second trimester, antepartum: When patient arrived her blood pressure was 130/80, and over the short period of time she has been here and has gone to the 140s then 150s and then at 1816 we had our first reading over 160 which was 166/74. We then had a second reading 20 minutes later which was 163/79. We then ordered the hypertension protocol with labetalol 20 mg given IV. Her pressure at the time it was given was 169/79, and this was at 1856. Patient has a history of gestational hypertension with her first as well as preeclampsia with her second . Given the fact that her hypertension is severe it will be treated like preeclampsia and may indeed be preeclampsia, but this is difficult to diagnose given the fact that her headaches are not new onset and that she has known cholelithiasis. Labs were done and revealed no abnormalities other than a hemoglobin less than 11. Her urine protein to creatinine ratio was 0.06. She will be started on magnesium sulfate intravenously and will be prepared for transfer provided her blood pressure stabilizes. Status: Acute (3) Severe hypertension affecting in second trimester: See above Status: Acute (4) Obesity affecting in second trimester: Status: Acute (5) History of severe pre-eclampsia: Status: Acute (6) Cholelithiasis: Status: Acute (7) uterine contractions in second trimester, antepartum: Although she is not dilating of the gestational hypertension and preeclampsia, she is at high risk for . Therefore, a dose of betamethasone was given. Status: Acute Attestations Medical Necessity Statement*: Patient will be transferred to a larger facility with NICU status given her gestational age of 26 weeks Time Spent in Patient Care: Greater than 35 minutes (>than 50% of time spent in counselling and/or direct pt care on unit). Coding Level of Care Code Acute Network Diagnostic Support Specialist for Zenaida Fwd Exam Comprehensive Diagnoses 26 weeks gestation of Z3A.26 Gestational hypertension without significant proteinuria during in second trimester, antepartum O13.2 Severe hypertension affecting in second trimester O16.2 Obesity affecting in second trimester O99.212 History of severe pre-eclampsia Z87.59 Cholelithiasis K80.20 uterine contractions in second trimester, antepartum O47.02
[2019-12-22 18:58] LABS: Urine Creatinine 82 mg/dL (28-217); Urine Protein Random 5 mg/dL
[2019-12-22 19:03] LABS: UPRO/UCREAT Ratio 0.06 mg/mg CR
[2019-12-22] MEDS: labetalol 5 mg/mL SDV 20mL IVP (19:06)
[2019-12-22] MEDS: dextrose 5%-lactated ringers 1,000 ML 75 ML IV (19:37)
[2019-12-22] MEDS: magnesium sulfate premix 4 GM/100 ML PREMIX IV (19:37)
--- NOTE | 2019-12-22 19:49 | PM.TDS ---
Transfer Summary Providers Date of Admission: 12/22/2019 (observation status) Date of Discharge: 12/22/19 Attending Provider at Admission: Verónica Cardoso MD Attending Provider at Transfer: Verónica Cardoso MD Consults: Dr. Moser, obstetrics and gynecology at [facility] [place] Primary Care Provider: Dr. Ant Rodriguez of [facility] Anticipated Date of Transfer: Anticipated date of transfer: 12/22/19 Receiving Facility & Provider: Receiving Provider: Dr. Moser Receiving facility: [facility] [place] Diagnoses at Discharge Discharge Diagnosis (1) 26 weeks gestation of : Status: Acute (2) Gestational hypertension without significant proteinuria during in second trimester, antepartum: Status: Acute (3) Severe hypertension affecting in second trimester: Status: Acute (4) Obesity affecting in second trimester: Status: Acute (5) History of severe pre-eclampsia: Status: Acute (6) Cholelithiasis: Status: Acute (7) uterine contractions in second trimester, antepartum: Status: Acute Reason for Visit Reason for Visit: Abdominal pain Hospital Course Hospital Course: Patient arrived in the 1500-hour this afternoon with complaint of abdominal cramping which it started at approximately 7 AM this morning. Please refer to her history and physical for further details. She had no local doctor, and I do not have her records. However, she is an excellent historian. She stated that her blood pressure was in the 130s over 80s over this past week and that she had noticed some edema in her legs. Because of her history she had been keeping track of her blood pressures. She admitted that she does have headaches but also has a history of headaches. She has had epigastric pain but does not have any currently but also has a known history of cholelithiasis. Her cramping turned out to be contractions which were initially as frequent as every 2 minutes. She has a history with her first of having received terbutaline on 2 separate occasions for contractions, once in the late 20s weeks gestation and then another time in the early 30 weeks gestation. She stated that she was not dilated either time. She has a history of but this was a section after a 5-week hospitalization with gestational hypertension and preeclampsia diagnosed at 31 weeks with the delivery at 36 weeks. When asked, she has not been on aspirin during this . She stated that she was planning a repeat section. Upon her arrival the contractions were every 2 minutes, and so we began IV fluids and gave her a dose of terbutaline 0.25 mg subcutaneously with a second dose 30 minutes later, as her contractions were still every 1 to 4 minutes. Her cervix was long closed and high. Over time this afternoon her blood pressures have increased systolically to the point where we had our first reading above 160 at approximately 615 this afternoon. She then had another reading approximately 20 minutes later that was above 160 systolic and the hypertension protocol was ordered. When she was about to be given the labetalol the blood pressure reading at that time was also above 160 systolic. Within 10 minutes of receiving 20 mg of labetalol intravenously her blood pressure was in the 150s systolic and is currently in the 140s systolic. She is also received a dose of betamethasone 12 mg IM. She had preeclamptic labs. Given her extremely status and history, I contacted [facility] regarding transfer as she would need to be started on magnesium sulfate and closely observed and might require delivery early necessitating NICU. Dr. Moser was given report by myself and has agreed to accept patient in transfer. Discharge Summary: Patient has a blood pressure 140 systolic and has not had a diastolic pressure over 90 at this point. She is received her 4 g magnesium sulfate IV bolus and will have a 2 g infusion. Physical Exam Narrative: EXAM NARRATIVE: See history and physical for her complete assessment. TS Data Data Completed and Pending: Pending at discharge Category Date Time Status Magnesium Level ( OB Only) Q6H Lab 12/23/19 01:30 Ordered Magnesium Level ( OB Only) Routine Lab 12/22/19 16:15 Received Labs from last 24 hours 12/22/19 12/22/19 12/22/19 17:46 16:28 16:15 WBC RBC Hgb Hct MCV MCH MCHC RDW Plt Count MPV Neut % (Auto) Lymph % (Auto) [place] % (Auto) Eos % (Auto) Baso % (Auto) Neut # (Auto) Lymph # (Auto) [place] # (Auto) Eos # (Auto) Baso # (Auto) Nucleated RBC % (a uto) Nucleated RBCs # Sodium Potassium Chloride Carbon Dioxide Anion Gap BUN Creatinine GFR Calculation Glucose Calculated Osmolal ity Uric Acid Calcium Magnesium Pending Total Bilirubin AST ALT Alkaline Phosphata se Total Protein Albumin Globulin Urine Color Yellow Urine Appearance Clear Urine pH 6 Ur Specific Gravit y 1.015 Urine Protein Neg Urine Glucose (UA) Norm Urine Ketones Negative Urine Blood Neg Urine Nitrate Negative Urine Bilirubin Neg Urine Urobilinogen Norm Ur Leukocyte Dolores ase Negative Urine RBC 0-4 H Urine WBC None Ur Squamous Epith Cells 10-15 H Amorphous Sediment Not Reportable Urine Bacteria 2+ H Urine Mucus 1+ U Random Total Pro tein 5 Urine Creatinine 82 Protein/Creatinin Ratio 0.06 12/22/19 12/22/19 16:15 16:15 WBC 8.8 RBC 4.07 L Hgb 10.4 L Hct 33.5 L MCV 82.3 MCH 25.6 L MCHC 31.0 RDW 14.6 Plt Count 302 MPV 9.6 Neut % (Auto) 81.0 Lymph % (Auto) 11.6 [place] % (Auto) 6.3 Eos % (Auto) 0.7 Baso % (Auto) 0.1 Neut # (Auto) 7.09 Lymph # (Auto) 1.0 [place] # (Auto) 0.6 Eos # (Auto) 0.1 Baso # (Auto) 0.0 Nucleated RBC % (a uto) 0 Nucleated RBCs # 0.0 Sodium 137 Potassium 3.9 Chloride 104 Carbon Dioxide 20 L Anion Gap 16.9 BUN 9 Creatinine 0.5 GFR Calculation 152.9 H Glucose 83 Calculated Osmolal ity 279 L Uric Acid 2.9 Calcium 9.4 Magnesium Total Bilirubin 0.2 AST 21 ALT 25 Alkaline Phosphata se 108 H Total Protein 7.1 Albumin 3.9 Globulin 3.2 Urine Color Urine Appearance Urine pH Ur Specific Gravit y Urine Protein Urine Glucose (UA) Urine Ketones Urine Blood Urine Nitrate Urine Bilirubin Urine Urobilinogen Ur Leukocyte Dolores ase Urine RBC Urine WBC Ur Squamous Epith Cells Amorphous Sediment Urine Bacteria Urine Mucus U Random Total Pro tein Urine Creatinine Protein/Creatinin Ratio 0.06 Vitals: Last Vital Signs Temp 99.4 F 12/22/19 16:14 Pulse 98 12/22/19 19:38 Resp 17 12/22/19 16:14 BP 150/71 12/22/19 19:38 TS Medications Medications Home Medications 12/22/19 [History] iron 12/22/19 [History] Active Medications Betamethasone Acet/Betameth SodPhos (Celestone Soluspan) 12 mg IM Q24H RADHA Stop: 12/23/19 16:16 Last Admin: 12/22/19 16:39 Dose: 12 mg Documented by: Calcium Gluconate (Calcium Gluconate) 1 gm IVP ONCE PRN PRN Reason: Reversal of Magnesium Sulfate Hydralazine HCl (Apresoline) 0 mg IVP PRN PRN; Protocol PRN Reason: HYPERTENSION Dextrose/Lactated Ringer's (Dextrose 5%-Lactated Ringers) 1,000 mls @ 125 mls/hr IV .Q8H RADHA Magnesium Sulfate (Magnesium Sulfate Premix) 20 gm in 500 mls @ 50 mls/hr IV .Q10H RADHA Labetalol HCl (Trandate) 0 mg IVP PRN PRN; Protocol PRN Reason: HYPERTENSION Last Admin: 12/22/19 19:06 Dose: 20 mg Documented by: Discharge Plan Discharge Prescriptions: No Action RF: 0 iron RF: 0 Discharge Orders: Discharge Order (Routine); Ordered 12/22/19 Ordered By: Verónica Cardoso Activity Restrictions/Additional Instructions: Patient will be transferred via ambulance to [facility] OB department under the care of Dr. Moser with magnesium infusion at 2 g. She will remain n.p.o. Transfer Attestations Time Spent in Transfer Care*: greater than 30 min Specific Discharge Activities: Specific discharge activities: educating patient, discussing with pcp/other providers, documenting/other paperwork and evaluating patient/reviewing data Status at Transfer: Cognitive status at transfer: cognitively intact, Behavioral status at transfer: cooperative, Functional status at transfer: other (Via gurney, ambulance) Overall status at transfer: patient is not back to baseline Quality Metrics Clinical Quality Measures: During this hospital stay, did patient experience: None Coding Level of Care Code Acute [employer] for Chg Fwd Diagnoses 26 weeks gestation of Z3A.26 Gestational hypertension without significant proteinuria during in second trimester, antepartum O13.2 Severe hypertension affecting in second trimester O16.2 Obesity affecting in second trimester O99.212 History of severe pre-eclampsia Z87.59 Cholelithiasis K80.20 uterine contractions in second trimester, antepartum O47.02
[2019-12-22] MEDS: magnesium sulfate premix 20 GM/500 ML BAG IV (19:57)
--- NOTE | 2019-12-22 21:06 | PC.NURSE ---
Provided [facility] nurse, Lelia Levy RN, with report. Discussed pt history, vitals, medications, FHTs. cervical exam and contraction pattern. Receiving nurse requested that Magnesium maintenance dose be decrease to 1gm/hr and that pt cervix is not rechecked, before transport.
== END 2019-12-22 21:53 | disposition intermediate care facility (04) ==
LOC: OPOB 15:43 → OBGYN 20:13
PROVIDERS: Visit Provider Family Medicine
DX: O13.2 Gestational [pregnancy-induced] hypertension without significant proteinuria, second trimester (principal); O16.2 Unspecified maternal hypertension, second trimester; O99.212 Obesity complicating pregnancy, second trimester; Z87.59 Personal history of other complications of pregnancy, childbirth and the puerperium; K80.20 Calculus of gallbladder without cholecystitis without obstruction; O47.02 False labor before 37 completed weeks of gestation, second trimester; Z3A.26 26 weeks gestation of pregnancy
CPT/HCPCS: 36415; 51702; 59025; 80053; 81001; 82570; 83735; 84156; 84550; 85025; 96372; 96375; 99211; J0702; J3105; J3475; J3490

== ENCOUNTER 2020-01-13 16:13 | Outpatient (CLI) | payer SELFPAY ==
--- NOTE | 2020-01-13 16:23 | XR_ITS ---
WS: [id number] EXAM: RIGHT ANKLE: 3 VIEWS DATE OF EXAMINATION: 01/13/2020, 1632 hours COMPARISON: None. HISTORY: Patient is 24 years old with ankle pain. FINDINGS: Osseous, joint and surrounding soft tissues are fairly unremarkable. Tiny heel spur plantar aponeuros is insertion. XR/XR ankle RT min 3V* [id number] IMPRESSION: Normal appearance to the ankle. Tiny heel spur plantar aponeurosis insertion on the calcaneus.
== END 2020-01-13 16:14 | disposition home or self-care (01) ==
LOC: RAD 16:17
PROVIDERS: Visit Provider Nurse Practitioner Family
DX: M25.571 Pain in right ankle and joints of right foot (principal); M77.31 Calcaneal spur, right foot
CPT/HCPCS: 73610

== ENCOUNTER 2020-02-07 16:25 | Outpatient (CLI) | payer SELFPAY ==
[2020-02-07] VITALS (36 sets, daily range): BP systolic 0–152; BP diastolic 0–86; PULSE 67–105; TEMP 37; BMI 43.2
[2020-02-07] MEDS: sodium chloride 0.9% 1,000 ML 999 ML IV (17:46)
[2020-02-07 17:47] LABS: Basophils % 0.1 %; Eosinophils # 0.1 10^3/uL (0.0-0.8); Eosinophils % 0.9 %; Hematocrit 30.6 % (37.0-47.0); Hemoglobin 9.5 g/dL (11.5-15.3); Lymphocytes % 10.8 %; Mean Corpuscular Hemoglobin 24.3 pg (28.0-34.0); Mean Corpuscular Volume 78.3 fL (81-99); Mean Platelet Volume 9.7 fL (7.4-10.4); Monocytes # 0.6 10^3/uL (0.2-0.9); Monocytes % 6.7 %; Neutrophils # 7.26 10^3/uL (1.8-7.7); Neutrophils % 81.3 %; Nucleated Red Blood Cells % 0 %; Platelet Count 273 10^3/cmm (130-400); Red Blood Count 3.91 10^6/uL (4.1-5.3); Red Cell Distribution Width 13.8 % (12.1-15.1); White Blood Count 8.9 10^3/uL (4.0-10.0)
[2020-02-07 18:11] LABS: Add Urine Microscopic? YES; Bilirubin Urine 1+ (Negative); Blood Urine Neg (Negative); Glucose Urine UA Norm (Normal); Ketones Urine Negative (Negative); Leukocyte Esterase Urine Negative (Negative); Nitrate Urine Negative (Negative); Protein Urine Neg (Negative); Specific Gravity, Urine 1.015 (1.005-1.030); Urine Appearance Hazy (CLEAR); Urine Color Dark Yellow (Yellow); Urobilinogen Urine 1 mg/dL (Negative); pH Urine 6.5 (5-7)
--- NOTE | 2020-02-07 18:15 | PC.NURSE ---
This nurse asked pt if she is feeling her contractions. Pt states she only feels pain in her back. Nurse asked if the pain is constant or if it comes and goes.The pt states it feels like a randy horse in my back that comes and goes. This nurse requested for pt to hit the marker button when she feels that randy horse like pain in her back begin to see if that is when her contractions are beginning.
[2020-02-07 18:22] LABS: Urine Creatinine 389 mg/dL (28-217)
[2020-02-07 18:23] LABS: Add Urine Culture? No; Bacteria Urine 2+ /hpf; Mucus Urine 4+ /hpf; Squamous Epithelial Cell Urine 15-25 /hpf (0-5)
[2020-02-07 18:24] LABS: Alanine Aminotransferase 17 U/L (0-33); Albumin Level 3.4 g/dL (3.5-5.2); Alkaline Phosphatase 113 IU/L (35-105); Anion Gap 14.7 (5-19); Aspartate Amino Transferase 18 U/L (0-32); Blood Urea Nitrogen 6 mg/dL (6-20); Calcium 8.3 mg/dL (8.5-10.5); Carbon Dioxide 19 mmol/L (22-29); Chloride 103 mmol/L (98-107); Glomerular Filtration Rate 152.9 mL/min (90-130); Glucose 96 mg/dL (65-115); Osmolality Calculated 272 mOsm/kg (285-295); Potassium 3.7 mmol/L (3.5-5.1); Sodium 133 mmol/L (136-145); Total Bilirubin 0.2 mg/dL (0.15-1.2); Total Protein 6.4 g/dL (6.6-8.7); Uric Acid 3.8 mg/dL (2.4-5.7)
[2020-02-07 18:25] LABS: UPRO/UCREAT Ratio 0.09 mg/mg CR; Urine Protein Random 34 mg/dL
[2020-02-07] MEDS: terbutaline 1 mg/mL INJ 0.25 MG SUBCUT (19:05)
[2020-02-07] MEDS: NIFEdipine 10 mg Capsule 20 MG PO (21:23)
[2020-02-07] MEDS: HYDROcodone-acetaminophen 5-325 mg Tablet 1 TAB PO (21:23)
== END 2020-02-07 22:43 | disposition home or self-care (01) ==
LOC: OPOB 16:35 → OBGYN 22:31
PROVIDERS: Visit Provider Family Medicine
DX: O16.9 Unspecified maternal hypertension, unspecified trimester (principal); Z3A.00 Weeks of gestation of pregnancy not specified
CPT/HCPCS: 36415; 59025; 80053; 81001; 82570; 84156; 84550; 85025; 96372; 99211; J3105; J7030

== ENCOUNTER 2020-06-26 14:59 | Outpatient (CLI) | payer SELFPAY ==
--- NOTE | 2020-06-26 15:04 | US_ITS ---
WS: [id number] ULTRASOUND LEFT BREAST, limited HISTORY: BREAST LUMP ON L SIDE @ 3 O'CLOCK POSITION COMPARISON: None available. TECHNIQUE: 2-D and Doppler. Ultrasound directed to the area of interest and palpable abnormality by the patient. Normal fibroglan dular soft tissue. No mass or distortion. No increased vascularity. US/US breast LT complete [id number] IMPRESSION: BI-RADS: 1-Negative FOLLOW-UP: See Report No LEFT breast mass at 3:00. No additional imaging necessary.
== END 2020-06-26 15:00 | disposition home or self-care (01) ==
LOC: RAD 15:02
PROVIDERS: Visit Provider Nurse Practitioner Family
DX: N63.25 Unspecified lump in the left breast, overlapping quadrants (principal)
CPT/HCPCS: 76641

== ENCOUNTER 2021-06-29 15:16 | Observation (INO) | payer SELFPAY ==
[2021-06-29 16:20] VITALS: BP 180/133; PULSE 134; RESP 18; TEMP 37.9; O2SAT 100; BMI 49.9
--- NOTE | 2021-06-29 16:29 | W.ED.ABDPA2 ---
Documented by User: YANET Aly 06/29/21 16:29 HPI - Abdominal Pain General: Chief Complaint: Abdominal Pain Stated Complaint: Abd and back pain Time Seen by Provider: 06/29/21 20:19 History of Present Illness: Patient states she has had pain since her see left lower quadrant. Also has pain in her right flank area. She denies any dysuria type symptoms. She says that feels like menstrual cramps. Denies any vaginal discharge. Did not know she had a fever until she arrived here triage. Said she has been vomiting today. Related Data: Date of Last Menstrual Period: 06/26/19 [facility] PFSH: Medical History Cholelithiasis Surgical History Hx of adenoidectomy And tonsillectomy as a child Previous section x 2 2018 and 2019 Had a tubal ligation with her second in [address] Rodriguez in [place] Status post tubal ligation Performed with her second in 2019--per patient it was a partial salpingectomy Family History Denies family history of Clotting disorder Dementia Chronic kidney disease (CKD) Cancer Social History Smoking and tobacco status: never smoked Alcohol intake: never Adopted: No Caregiver/support person: Yes Lives independently: Yes Household members: spouse, family and children Marital status: Number of children: 3 Number of grandchildren: 0 Female Reproductive History: Date of last menstrual period: 06/26/19 Course Vital Signs: Vital signs: Vital Signs Temperature 97.9 F 06/30/21 01:05 Pulse Rate 100 06/30/21 01:30 Respiratory Rate 25 H 06/30/21 01:30 Blood Pressure 132/96 06/30/21 01:30 Pulse Oximetry 96 06/30/21 01:30 MDM - Abdominal Pain Lab Data : 06/29/21 18:19 06/29/21 18:19 Labs/Radiology: Radiology Impressions Transvaginal US 06/29/21 19:21 IMPRESSION: 1. Small hypoechoic cystic lesion of the anterior proximal cervix region; favor nabothian cyst. 2. Ectopic placement of a gestational sac cannot be excluded at this time. Recommend short interval follow-up ultrasound in 1 week. 3. Otherwise, no evidence of intrauterine gestation at this time. Continued surveillance with beta HCG recommended. Laboratory Results WBC 6.2 10^3/uL (4.0-10.0) 06/29/21 18:19 RBC 4.94 10^6/uL (4.1-5.3) 06/29/21 18:19 Hgb 12.0 g/dL (11.5-15.3) 06/29/21 18:19 Hct 40.1 % (37.0-47.0) 06/29/21 18:19 MCV 81.2 fl (81-99) 06/29/21 18:19 MCH 24.3 pg (28.0-34.0) L 06/29/21 18:19 MCHC 29.9 g/dL (30.0-36.0) L 06/29/21 18:19 RDW 16.5 % (12.1-15.1) H 06/29/21 18:19 Plt Count 332 10^3/cmm (130-400) 06/29/21 18:19 MPV 9.1 fL (7.4-10.4) 06/29/21 18:19 Neut % (Auto) 83.8 % 06/29/21 18:19 Lymph % (Auto) 3.7 % 06/29/21 18:19 Josephine % (Auto) 9.7 % 06/29/21 18:19 Eos % (Auto) 1.9 % 06/29/21 18:19 Baso % (Auto) 0.6 % 06/29/21 18:19 Neut # (Auto) 5.17 10^3/uL (1.8-7.7) 06/29/21 18:19 Lymph # (Auto) 0.2 10^3/uL (0.8-4.8) L 06/29/21 18:19 Josephine # (Auto) 0.6 10^3/uL (0.2-0.9) 06/29/21 18:19 Eos # (Auto) 0.1 10^3/uL (0.0-0.8) 06/29/21 18:19 Baso # (Auto) 0.0 10^3/uL (0.0-0.1) 06/29/21 18:19 Nucleated RBC % (auto) 0 % 06/29/21 18:19 Nucleated RBCs # 0.0 /100WBC 06/29/21 18:19 Sodium 135 mmol/L (136-145) L 06/29/21 18:19 Potassium 4.4 mmol/L (3.5-5.1) 06/29/21 18:19 Chloride 103 mmol/L (98-107) 06/29/21 18:19 Carbon Dioxide 19 mmol/L (22-29) L 06/29/21 18:19 Anion Gap 17.4 (5-19) 06/29/21 18:19 BUN 5 mg/dL (6-20) L 06/29/21 18:19 Creatinine 0.5 mg/dL (0.5-0.9) 06/29/21 18:19 GFR Calculation 151.6 mL/min (90-130) H 06/29/21 18:19 Glucose 93 mg/dL (65-115) 06/29/21 18:19 Calculated Osmolality 277 mOsm/kg (285-295) L 06/29/21 18:19 Calcium 8.7 mg/dL (8.5-10.5) 06/29/21 18:19 Total Bilirubin 0.2 mg/dL (0.15-1.2) 06/29/21 18:19 AST 42 U/L (0-32) H 06/29/21 18:19 ALT 40 U/L (0-33) H 06/29/21 18:19 Alkaline Phosphatase 92 IU/L (35-105) 06/29/21 18:19 Total Protein 6.9 g/dL (6.6-8.7) 06/29/21 18:19 Albumin 4.7 g/dL (3.5-5.2) 06/29/21 18:19 Globulin 2.2 g/dL (1.3-4.6) 06/29/21 18:19 Lipase 22 U/L (13-60) 06/29/21 18:19 HCG, Qual Positive (Negative) H 06/29/21 17:17 Ser , Semi-Qnt 634.50 mIU/mL 06/29/21 18:19 Urine Color Yellow (Yellow) 06/29/21 17:17 Urine Appearance Clear (CLEAR) 06/29/21 17:17 Urine pH 7 (5-7) 06/29/21 17:17 Ur Specific [place] 1.010 (1.005-1.030) 06/29/21 17:17 Urine Protein Neg (Negative) 06/29/21 17:17 Urine Glucose (UA) Norm (Normal) 06/29/21 17:17 Urine Ketones Negative (Negative) 06/29/21 17:17 Urine Blood Neg (Negative) 06/29/21 17:17 Urine Nitrate Negative (Negative) 06/29/21 17:17 Urine Bilirubin Neg (Negative) 06/29/21 17:17 Urine Urobilinogen Neg mg/dL (Negative) 06/29/21 17:17 Ur Leukocyte Esterase Negative (Negative) 06/29/21 17:17 SARS-CoV-2 Ag (Rapid) Negative (Negative) 06/29/21 22:43 Blood Type A Positive 06/29/21 22:50 Rho(D) Type Positive 06/29/21 22:50 Antibody Screen Negative 06/29/21 22:50 Discharge Plan Discharge Patient Disposition: Admitted As Inpatient Clinical Impression: Encounter for assessment for suspected ectopic Condition: Stable Coding Level of Care Code ED Conciliation Court Judge for Chg Fwd Exam Comprehensive Documented by User: MICHAEL Bar 06/30/21 01:41 HPI - Abdominal Pain General: Chief Complaint: Abdominal Pain Stated Complaint: Abd and back pain Time Seen by Provider: 06/29/21 20:19 History of Present Illness: Patient states she has had pain since her see left lower quadrant. Also has pain in her right flank area. She denies any dysuria type symptoms. Pain started today. She is also had nausea and vomiting that started today as well. She says that feels like menstrual cramps. She rates the pain currently about an 8 out of 10. She says the pain radiates to right lower back as well. She had some light spotting yesterday but today she has not had any vaginal bleeding. Denies any vaginal discharge. Did not know she had a fever until she arrived here triage. Patient has had a tubal ligation back in 2019. She had a positive test and her last menstrual period was May 30, 2021. She has normal monthly menstrual periods and no recent change in menstrual periods. She contacted her primary care provider today they recommended she come here to get an ultrasound because they are concerned patient might have an ectopic . Associated Symptoms: Reports nausea and vomiting; Denies chills, constipation, diarrhea, dysuria, fever(s), hematochezia and hematuria Review of Systems Const: Denies: fever(s), chills or fatigue Eyes: Denies: change in vision or eye discomfort ENMT: Denies: throat pain, odynophagia, nasal discharge or nasal congestion Card: Denies: chest pain, palpitations, edema, swelling of feet/ankles, dyspnea on exertion or orthopnea Resp: Denies: dyspnea, productive cough or non-productive cough GI: Reports: abdominal pain, nausea and vomiting; Denies: diarrhea, constipation or hematochezia : Denies: flank pain, dysuria or hematuria Musc: Denies: neck pain, back pain or extremity swelling Skin/Breast: Denies: rash or new lesions Neuro: Denies: headache(s), numbness in extremities or weakness in extremities PFSH ED PFSH: Medical History Cholelithiasis Surgical History Hx of adenoidectomy And tonsillectomy as a child Previous section x 2 2018 and 2019 Had a tubal ligation with her second in [address] Rodriguez in [place] Status post tubal ligation Performed with her second in 2020--per patient it was a partial salpingectomy Family History Denies family history of Clotting disorder Dementia Chronic kidney disease (CKD) Cancer Social History Smoking and tobacco status: never smoked Alcohol intake: never Adopted: No Caregiver/support person: Yes Lives independently: Yes Household members: spouse, family and children Marital status: Number of children: 3 Number of grandchildren: 0 Physical Exam Const: COMMON NORMALS: patient oriented x3 and alert GENERAL APPEARANCE: cooperative and in distress (due to abdominal pain) HENMT: COMMON NORMALS: normocephalic HEAD & SCALP: normocephalic MOUTH: Normal oral and palatal mucosa present THROAT: posterior oropharynx normal and uvula midline Neck/C-Spine: COMMON NORMALS: supple GENERAL: Yes normal visual inspection Resp: COMMON NORMALS: normal respiratory effort, No retractions, No use of accessory muscles and clear to auscultation bilaterally AUSCULTATION: clear to auscultation bilaterally Cardio: COMMON NORMALS: regular rate, regular rhythm, S1 normal heart sound present, S2 normal heart sound present, No gallops present (Cardio), No clicks present (Cardio), No murmurs present (Cardio) and Peripheral pulses 2+ throughout RATE: regular rate RHYTHM: regular rhythm HEART SOUNDS: S1 normal heart sound present and S2 normal heart sound present PERIPHERAL PULSES: Peripheral pulses 2+ throughout GI: COMMON NORMALS: Normal to inspection, nondistended, normoactive bowel sounds present, Soft to palpation and no masses PALPATION: Yes Soft to palpation and Yes Tenderness to palpation present (GI) Details: RLQ : COMMON NORMALS: Yes no CVA tenderness BLADDER/KIDNEY EXAM: Yes no CVA tenderness Back/Pelvis: COMMON NORMALS: no CVA tenderness Extremity: COMMON NORMALS: normal to inspection Neuro: COMMON NORMALS: patient oriented x3 SENSORIUM/ORIENTATION: Yes alert Skin: GENERAL SKIN EXAM: dry skin Course Consultations: Consultation #1: I contacted the OB on-call Dr. Crowder and I told her about patient case, labs, US report and my suspicion for an ectopic . She said she would come to the ED and evaluate patient and then make a decision on plan of care. Time: 20:15 Vital Signs: Vital signs: Vital Signs Temperature 97.9 F 06/30/21 01:05 Pulse Rate 100 06/30/21 01:30 Respiratory Rate 25 H 06/30/21 01:30 Blood Pressure 132/96 06/30/21 01:30 Pulse Oximetry 96 02/05/22 01:30 MDM - Abdominal Pain Medical Decision Making Patient is a 25-year-old female who comes to the ED with right lower abdominal pain, nausea and vomiting. Denies any vaginal bleeding. Patient has history of tubal ligation. She has a positive test. She has a temperature of 100.2 here in the ED along with a pulse of 134 and her blood pressure is elevated. The rest of vitals are stable. She appears in some distress and discomfort due to abdominal pain. She has some tenderness to the right lower quadrant of her abdomen. CBC and CMP were unremarkable. hCG quant 634.5. Transvaginal ultrasound showed small hypoechoic cystic lesion of the anterior proximal cervix region possibly Nabothian cyst. Ectopic placement of a gestational sac cannot be excluded at this time and no evidence of intrauterine gestation at this time. I contacted Dr. rCowder and told her about patient case and my suspicion for possible ectopic . Dr. Crowder came into the ED and evaluated patient. Patient will be admitted to Dr. Crowder and taken to the OR. Lab Data I reviewed the patient's lab results. : 06/29/21 18:19 06/29/21 18:19 Labs/Radiology: Radiology Impressions Transvaginal US 06/29/21 19:21 IMPRESSION: 1. Small hypoechoic cystic lesion of the anterior proximal cervix region; favor nabothian cyst. 2. Ectopic placement of a gestational sac cannot be excluded at this time. Recommend short interval follow-up ultrasound in 1 week. 3. Otherwise, no evidence of intrauterine gestation at this time. Continued surveillance with beta HCG recommended. Laboratory Results WBC 6.2 10^3/uL (4.0-10.0) 06/29/21 18: RBC 4.94 10^6/uL (4.1-5.3) 06/29/21 18: Hgb 12.0 g/dL (11.5-15.3) 06/29/21 18: Hct 40.1 % (37.0-47.0) 06/29/21 18: MCV 81.2 fl (81-99) 06/29/21 18: MCH 24.3 pg (28.0-34.0) L 06/29/21 18: MCHC 29.9 g/dL (30.0-36.0) L 06/29/21 18:19 RDW 16.5 % (12.1-15.1) H 06/29/21 18:19 Plt Count 332 10^3/cmm (130-400) 06/29/21 18:19 MPV 9.1 fL (7.4-10.4) 06/29/21 18:19 Neut % (Auto) 83.8 % 06/29/21 18:19 Lymph % (Auto) 3.7 % 06/29/21 18:19 Josephine % (Auto) 9.7 % 06/29/21 18:19 Eos % (Auto) 1.9 % 06/29/21 18:19 Baso % (Auto) 0.6 % 06/29/21 18:19 Neut # (Auto) 5.17 10^3/uL (1.8-7.7) 06/29/21 18:19 Lymph # (Auto) 0.2 10^3/uL (0.8-4.8) L 06/29/21 18:19 Josephine # (Auto) 0.6 10^3/uL (0.2-0.9) 06/29/21 18:19 Eos # (Auto) 0.1 10^3/uL (0.0-0.8) 06/29/21 18:19 Baso # (Auto) 0.0 10^3/uL (0.0-0.1) 06/29/21 18:19 Nucleated RBC % (auto) 0 % 06/29/21 18:19 Nucleated RBCs # 0.0 /100WBC 06/29/21 18:19 Sodium 135 mmol/L (136-145) L 06/29/21 18:19 Potassium 4.4 mmol/L (3.5-5.1) 06/29/21 18:19 Chloride 103 mmol/L (98-107) 06/29/21 18:19 Carbon Dioxide 19 mmol/L (22-29) L 06/29/21 18:19 Anion Gap 17.4 (5-19) 06/29/21 18:19 BUN 5 mg/dL (6-20) L 06/29/21 18:19 Creatinine 0.5 mg/dL (0.5-0.9) 06/29/21 18:19 GFR Calculation 151.6 mL/min (90-130) H 06/29/21 18:19 Glucose 93 mg/dL (65-115) 06/29/21 18:19 Calculated Osmolality 277 mOsm/kg (285-295) L 06/29/21 18:19 Calcium 8.7 mg/dL (8.5-10.5) 06/29/21 18:19 Total Bilirubin 0.2 mg/dL (0.15-1.2) 06/29/21 18:19 AST 42 U/L (0-32) H 06/29/21 18:19 ALT 40 U/L (0-33) H 06/29/21 18:19 Alkaline Phosphatase 92 IU/L (35-105) 06/29/21 18:19 Total Protein 6.9 g/dL (6.6-8.7) 06/29/21 18:19 Albumin 4.7 g/dL (3.5-5.2) 06/29/21 18:19 Globulin 2.2 g/dL (1.3-4.6) 06/29/21 18:19 Lipase 22 U/L (13-60) 06/29/21 18:19 HCG, Qual Positive (Negative) H 06/29/21 17:17 Ser , Semi-Qnt 634.50 mIU/mL 06/29/21 18:19 Urine Color Yellow (Yellow) 06/29/21 17:17 Urine Appearance Clear (CLEAR) 06/29/21 17:17 Urine pH 7 (5-7) 06/29/21 17:17 Ur Specific [place] 1.010 (1.005-1.030) 06/29/21 17:17 Urine Protein Neg (Negative) 06/29/21 17:17 Urine Glucose (UA) Norm (Normal) 06/29/21 17:17 Urine Ketones Negative (Negative) 06/29/21 17:17 Urine Blood Neg (Negative) 06/29/21 17:17 Urine Nitrate Negative (Negative) 06/29/21 17:17 Urine Bilirubin Neg (Negative) 06/29/21 17:17 Urine Urobilinogen Neg mg/dL (Negative) 06/29/21 17:17 Ur Leukocyte Esterase Negative (Negative) 06/29/21 17:17 SARS-CoV-2 Ag (Rapid) Negative (Negative) 06/29/21 22:43 Blood Type A Positive 06/29/21 22:50 Rho(D) Type Positive 06/29/21 22:50 Antibody Screen Negative 06/29/21 22:50 Discharge Plan Discharge Patient Disposition: Admitted As Inpatient Clinical Impression: Encounter for assessment for suspected ectopic Condition: Stable Coding Level of Care Code ED Conciliation Court Judge for [place]ena[place] Fwd Exam Comprehensive
[2021-06-29 17:27] LABS: Add Urine Microscopic? NO; Charge for UA Resulting for Rev
[2021-06-29 17:32] LABS: Bilirubin Urine Neg (Negative); Blood Urine Neg (Negative); Glucose Urine UA Norm (Normal); Ketones Urine Negative (Negative); Leukocyte Esterase Urine Negative (Negative); Nitrate Urine Negative (Negative); Protein Urine Neg (Negative); Urine Appearance Clear (CLEAR); Urine Color Yellow (Yellow); Urobilinogen Urine Neg (Negative); pH Urine 7 (5-7)
[2021-06-29 18:26] LABS: Basophils % 0.6 %; Eosinophils # 0.1 10^3/uL (0.0-0.8); Eosinophils % 1.9 %; Hematocrit 40.1 % (37.0-47.0); Lymphocytes # 0.2 10^3/uL (0.8-4.8); Lymphocytes % 3.7 %; Mean Corpuscular HGB Conc 29.9 g/dL (30.0-36.0); Mean Corpuscular Hemoglobin 24.3 pg (28.0-34.0); Mean Corpuscular Volume 81.2 fl (81-99); Mean Platelet Volume 9.1 fL (7.4-10.4); Monocytes # 0.6 10^3/uL (0.2-0.9); Monocytes % 9.7 %; Neutrophils # 5.17 10^3/uL (1.8-7.7); Neutrophils % 83.8 %; Nucleated Red Blood Cells % 0 %; Platelet Count 332 10^3/cmm (130-400); Red Blood Count 4.94 10^6/uL (4.1-5.3); Red Cell Distribution Width 16.5 % (12.1-15.1); White Blood Count 6.2 10^3/uL (4.0-10.0)
[2021-06-29 18:51] LABS: Alanine Aminotransferase 40 U/L (0-33); Albumin Level 4.7 g/dL (3.5-5.2); Alkaline Phosphatase 92 IU/L (35-105); Aspartate Amino Transferase 42 U/L (0-32); Blood Urea Nitrogen 5 mg/dL (6-20); Calcium 8.7 mg/dL (8.5-10.5); Carbon Dioxide 19 mmol/L (22-29); Chloride 103 mmol/L (98-107); Globulin 2.2 g/dL (1.3-4.6); Glomerular Filtration Rate 151.6 mL/min (90-130); Glucose 93 mg/dL (65-115); Lipase 22 U/L (13-60); Osmolality Calculated 277 mOsm/kg (285-295); Sodium 135 mmol/L (136-145); Total Bilirubin 0.2 mg/dL (0.15-1.2); Total Protein 6.9 g/dL (6.6-8.7)
[2021-06-29 18:52] LABS: Anion Gap 17.4 (5-19); Potassium 4.4 mmol/L (3.5-5.1)
[2021-06-29 19:17] LABS: HCG Qualitative Urine. Positive (Negative)
--- NOTE | 2021-06-29 19:21 | USR_ITS ---
PROCEDURE INFORMATION: Exam: US , Transvaginal Exam date and time: 06/29/2021 7:21 PM Age: 25 years old Clinical indication: Abnormal findings; Abnormal lab test; Change in hcg; ; Prior surgery; Surgery date: 6+ months; Surgery type: Tubal ligation; Additional info: Abd pain TECHNIQUE: Imaging protocol: Real-time transvaginal obstetrical ultrasound of the maternal pelvis with image documentation. Transvaginal imaging was used for better evaluation of the fetus, adnexa, and/or cervix. COMPARISON: [place] [id number] 08/24/2018 1:53 AM FINDINGS: Gestation: Intrauterine gestation. MATERNAL: Uterus: No endometrial thickening measuring 6-7 mm, although the uterine fundal region is difficult to characterize. Cervix: Small hypoechoic cystic collection measuring 4 mm diameter is located at the anterior proximal margin of the cervix. Right ovary/adnexa: Maternal right ovary not seen. Left ovary/adnexa: Maternal left ovary normal in size and appearance with unremarkable internal vascularity. Intraperitoneal space: No pelvic fluid collection. US/US transvaginal [id number] IMPRESSION: 1. Small hypoechoic cystic lesion of the anterior proximal cervix region; favor nabothian cyst. 2. Ectopic placement of a gestational sac cannot be excluded at this time. Recommend short interval follow-up ultrasound in 1 week. 3. Otherwise, no evidence of intrauterine gestation at this time. Continued surveillance with beta HCG recommended.
--- NOTE | 2021-06-29 20:28 | ED_ITS ---
HPI - Abdominal Pain General: Chief Complaint: Abdominal Pain Stated Complaint: Abd and back pain Time Seen by Provider: 06/29/21 20:19 History of Present Illness: Patient is a 25-year-old female comes to the ED with abdominal pain. Associated Symptoms: Denies chills, constipation, diarrhea, dysuria, fever(s), hematochezia, hematuria, nausea and vomiting Related Data: Date of Last Menstrual Period: 06/26/19 Review of Systems Const: Denies: fever(s), chills or fatigue Eyes: Denies: change in vision or eye discomfort ENMT: Denies: throat pain, odynophagia, nasal discharge or nasal congestion Card: Denies: chest pain, palpitations, edema, swelling of feet/ankles, dyspnea on exertion or orthopnea Resp: Denies: dyspnea, productive cough or non-productive cough GI: Denies: abdominal pain, nausea, vomiting, diarrhea, constipation or hematochezia : Denies: flank pain, dysuria or hematuria Musc: Denies: neck pain, back pain or extremity swelling Skin/Breast: Denies: rash or new lesions Neuro: Denies: headache(s), numbness in extremities or weakness in extremities PFSH ED PFSH: Medical History (Updated 12/22/19 @ 19:42 by Verónica Cardoso MD) Cholelithiasis Surgical History (Updated 12/22/19 @ 19:21 by Verónica Cardoso MD) Hx of adenoidectomy Hx of tonsillectomy Previous section Family History (Updated 06/18/19 @ 01:35 by Royce Purdy MD) Denies family history of Clotting disorder Dementia Chronic kidney disease (CKD) Cancer Social History (Updated 12/22/19 @ 19:22 by Verónica Cardoso MD) Smoking and tobacco status: never smoked Alcohol intake: never Adopted: No Caregiver/support person: Yes Lives independently: Yes Household members: spouse, family and children Marital status: Number of children: 3 Number of grandchildren: 0 Female Reproductive History: Date of last menstrual period: 06/26/19 Course Vital Signs: Vital signs: Vital Signs Temperature 100.2 F H 06/29/21 16:20 Pulse Rate 134 H 06/29/21 16:20 Respiratory Rate 18 06/29/21 16:20 Blood Pressure 180/133 06/29/21 16:20 Pulse Oximetry 100 06/29/21 16:20 MDM - Abdominal Pain Lab Data : 06/29/21 18:19 06/29/21 18:19 Labs/Radiology: Laboratory Results WBC 6.2 10^3/uL (4.0-10.0) 06/29/21 18:19 RBC 4.94 10^6/uL (4.1-5.3) 06/29/21 18:19 Hgb 12.0 g/dL (11.5-15.3) 06/29/21 18:19 Hct 40.1 % (37.0-47.0) 06/29/21 18:19 MCV 81.2 fl (81-99) 06/29/21 18:19 MCH 24.3 pg (28.0-34.0) L 06/29/21 18:19 MCHC 29.9 g/dL (30.0-36.0) L 06/29/21 18:19 RDW 16.5 % (12.1-15.1) H 06/29/21 18:19 Plt Count 332 10^3/cmm (130-400) 06/29/21 18:19 MPV 9.1 fL (7.4-10.4) 06/29/21 18:19 Neut % (Auto) 83.8 % 06/29/21 18:19 Lymph % (Auto) 3.7 % 06/29/21 18:19 [place] % (Auto) 9.7 % 06/29/21 18:19 Eos % (Auto) 1.9 % 06/29/21 18:19 Baso % (Auto) 0.6 % 06/29/21 18:19 Neut # (Auto) 5.17 10^3/uL (1.8-7.7) 06/29/21 18:19 Lymph # (Auto) 0.2 10^3/uL (0.8-4.8) L 06/29/21 18:19 [place] # (Auto) 0.6 10^3/uL (0.2-0.9) 06/29/21 18:19 Eos # (Auto) 0.1 10^3/uL (0.0-0.8) 06/29/21 18:19 Baso # (Auto) 0.0 10^3/uL (0.0-0.1) 06/29/21 18:19 Nucleated RBC % (auto) 0 % 06/29/21 18:19 Nucleated RBCs # 0.0 /100WBC 06/29/21 18:19 Sodium 135 mmol/L (136-145) L 06/29/21 18:19 Potassium 4.4 mmol/L (3.5-5.1) 06/29/21 18:19 Chloride 103 mmol/L (98-107) 06/29/21 18:19 Carbon Dioxide 19 mmol/L (22-29) L 06/29/21 18:19 Anion Gap 17.4 (5-19) 06/29/21 18:19 BUN 5 mg/dL (6-20) L 06/29/21 18:19 Creatinine 0.5 mg/dL (0.5-0.9) 06/29/21 18:19 GFR Calculation 151.6 mL/min (90-130) H 06/29/21 18:19 Glucose 93 mg/dL (65-115) 06/29/21 18:19 Calculated Osmolality 277 mOsm/kg (285-295) L 06/29/21 18:19 Calcium 8.7 mg/dL (8.5-10.5) 06/29/21 18:19 Total Bilirubin 0.2 mg/dL (0.15-1.2) 06/29/21 18:19 AST 42 U/L (0-32) H 06/29/21 18:19 ALT 40 U/L (0-33) H 06/29/21 18:19 Alkaline Phosphatase 92 IU/L (35-105) 06/29/21 18:19 Total Protein 6.9 g/dL (6.6-8.7) 06/29/21 18:19 Albumin 4.7 g/dL (3.5-5.2) 06/29/21 18:19 Globulin 2.2 g/dL (1.3-4.6) 06/29/21 18:19 Lipase 22 U/L (13-60) 06/29/21 18:19 HCG, Qual Positive (Negative) H 06/29/21 17:17 Ser , Semi-Qnt 634.50 mIU/mL 06/29/21 18:19 Urine Color Yellow (Yellow) 06/29/21 17:17 Urine Appearance Clear (CLEAR) 06/29/21 17:17 Urine pH 7 (5-7) 06/29/21 17:17 Ur Specific [place] 1.010 (1.005-1.030) 06/29/21 17:17 Urine Protein Neg (Negative) 06/29/21 17:17 Urine Glucose (UA) Norm (Normal) 06/29/21 17:17 Urine Ketones Negative (Negative) 06/29/21 17:17 Urine Blood Neg (Negative) 06/29/21 17:17 Urine Nitrate Negative (Negative) 06/29/21 17:17 Urine Bilirubin Neg (Negative) 06/29/21 17:17 Urine Urobilinogen Neg mg/dL (Negative) 06/29/21 17:17 Ur Leukocyte Esterase Negative (Negative) 06/29/21 17:17 Discharge Plan Discharge Condition: Stable Prescriptions: No Action 1 tab PO DAILY 0RF iron 1 tab PO DAILY 0RF Coding Level of Care Code ED Recovery Collector for Urbang Frank
[2021-06-29] MEDS: ondansetron 2 mg/ML SDV 2 mL 4 MG IVP (21:40)
[2021-06-29] MEDS: sodium chloride 0.9% 500 ML 999 ML IV (21:40)
--- NOTE | 2021-06-29 22:44 | PM.OBGYHP ---
Providers/Chief Complaint Chief Complaint: Abd and back pain HPI OFFICE ADMINISTRATIVE ASSISTANT History of Present Illness HISTORY AND PHYSICAL: Consult for possible ectopic Chief Complaint: I am and my belly hurts History of present illness: Ms. Hernandez is a 25-year-old 4 para 2-1-0-4 with an LMP of 05/30/2021 which patient states was abnormally early in light who presents to the emergency room with right-sided lower back pain and abdominal pain. She states that she found out she was on Friday-06/25/2021. She spoke to her primary care provider Amelia Hernandez and was seen by her OFFICE ADMINISTRATIVE ASSISTANT Dr. Rodriguez in [place] on 06/26/2021. She states he told her about the possibility of this being an ectopic but wanted to monitor her levels. She states that blood work was done and she states her progesterone levels were normal. She states that no quantitative beta-hCG was done. She was supposed to go back for evaluation on but given the poor weather her appointment was canceled and she just plan to follow-up on Friday. She denied any pain or problems until 06/29/2021. She states that she woke up in the morning with nausea vomiting and lower abdominal pain which felt like a. Type cramping pain and got progressively worse. She came into the ER for further evaluation. Reports she is very anxious since being in the ER. Has had occasional numbness in her lower legs since being in the ER. Obstetric History: Vaginal delivery [id number] delivery for twins at 36 weeks Repeat delivery at Past medical history: Chronic hypertension on lisinopril managed by primary care provider Hypothyroidism on medication since her teenage years Morbid obesity with a BMI of 49.9 Denies asthma, diabetes, DVT/PE Allergies: Penicillin and amp oxacillin--rash. She states that she has taken Keflex in the past without any side effects. Current Medications: Lisinopril, levothyroxine Social History: Alcohol use:-Denies Tobacco use:-Denies Drug use:-Denies Family History: Noncontributory Review of Systems: Denies fever, chills, nausea, vomiting, visual or hearing loss, bleeding gums, bleeding nose, cough, chest pain, palpitations, difficulty passing urine, constipation, vaginal discharge, vaginal pruritus, skin rash, headaches, tremor. Other pertinent positives and negatives have been documented in history of present illness. Physical exam: Weight: 300 lbs Height: 5 foot 5 inches BMI: 49.9 kg/m2 Blood pressure: 140/84 mm of mercury Pulse: 117 beats per minute Respiration: 20 breaths per minute General: well developed, well nourished, anxious Neuro/Psych: alert, oriented to time, place and person. Neck: Trachea midline Heart: S1-S2 heard, regular rate and rhythm. Lungs: Clear to auscultation bilaterally. Breast: Deferred Abdomen: Soft, obese, right lower quadrant tenderness, right lower quadrant rebound, no hepatosplenomegaly, no umbilical hernia-exam limited by patient's body habitus Legs: No pedal edema no calf tenderness. Negative Homans sign Back: No CVA tenderness Skin: Normal over [id number] Pfannenstiel scar from surgery noted Lymph nodes: No palpable, inguinal lymph nodes Pelvic exam: External genitalia: Appears normal, no lesions, normal hair Urethral meatus: Normal size, normal location Urethra: Nontender, no masses Bladder: Nontender Vagina: Normal to palpation Cervix: Feels normal, CMT and right adnexal tenderness Uterus: 8 weeks, anteverted, mobile, some tenderness on movement Adnexa: Right adnexal tenderness Perineum/anus: Intact Rectum: Deferred LABS: AST/ALT 42/40 Beta-hCG 634 CBC 6.2<12.0/40> 332 COVID-pending Transvaginal sonogram: Hypoechoic lesion in the anterior cervix which is likely nabothian cyst. Ectopic cannot be ruled out, no intrauterine gestation and recommend continued hCG surveillance. The right ovary is not seen. Right adnexa not seen well. Maternal left ovary appears normal. No free fluid. Assessment and Plan: 25-year-old 4 para 2-1-0-4 at about 5 weeks gestation -Likely ectopic . Patient has had a history of tubal ligation with her second in 1999. This combined with her right lower quadrant pain, positive test and CMT and right adnexal tenderness is concerning for an ectopic . I discussed with patient that with a beta-hCG of 650 that there is no way to confirm location as there will not be any sign of a on the ultrasound. Reviewed results of the ultrasound done today which shows no sign of an intrauterine or an ectopic consistent with her low levels of beta hCG. -Discussed increased risk of ectopic with partial salpingectomy and reasoning behind this reviewed with patient. Discussed differential at this time is ectopic , normal intrauterine with some other pathology causing her pain or nongynecological causes like appendicitis. -Discussed her liver enzymes are slightly elevated which may be related to the nausea and vomiting she is experienced today, viral infection, Covid, etc. -Options at this time would be observation with serial beta-hCG follow-up with repeat in 2 days. Patient does not in favor of this given that she is in quite a bit of pain and is worried about an ectopic . I would recommend laparoscopy. Patient absolutely does not want to be and would like me to remove both her tubes at time of surgery. She would like a total salpingectomy done. I discussed if no ectopic is seen and there may be an intrauterine however she may cause loss of this . Patient is okay with this and is willing to take this chance as she is much more concerned about an ectopic based on our discussion and what her primary OFFICE ADMINISTRATIVE ASSISTANT geoff with her. -Reviewed the remote chance of this being appendicitis given her nausea vomiting and low-grade fever as well as slightly elevated LFTs. Discussed in this case I will call her general surgeon promotional advertising assistant to do the appendectomy. Patient states that even if it is the appendix she would like to have her tubes removed. -All her questions were answered to her satisfaction she agrees with current plan of care. -Reviewed we will attempt to do this laparoscopically however her body habitus and her previous surgeries may make this complicated and she may require laparotomy either vertical or Pfannenstiel depending upon complication. -Surgical consent signed for laparoscopic bilateral total salpingectomy possible open, possible oophorectomy. Patient will accept a blood transfusion if needed. -Vital signs are stable and hemoglobin is at 12. -All her questions were answered and she agrees with the current plan of care. I spent 45 minutes with the patient in discussion and counseling as documented above This documentation was created by [employer] telephoner software (known for inherent telephoner error). Every effort was made to assure accuracy of telephoner. Any obvious errors or omissions should be clarified with the author of the document. Present Details Date of Last Menstrual Period: 06/26/19 Calculated Date of Delivery: 04/01/20 Gestational Age Based on Last Menstrual Period: 104 Medications/Allergies Home Medications Medication Instructions Recorded Confirmed Last Taken Type 1 tab PO DAILY 12/22/19 02/07/20 1 Day Ago History ~02/06/20 iron 1 tab PO DAILY 12/22/19 02/07/20 1 Day Ago History ~02/06/20 Allergies Allergy/AdvReac Type Severity Reaction Status Date / Time amoxicillin Allergy ALGY-Anaphy Verified 02/07/20 16:45 laxis Penicillins Allergy ALGY-Swell Verified 02/07/20 16:45 Lip/Tongue/Throat PFSH OFFICE ADMINISTRATIVE ASSISTANT PFSH: Medical History Cholelithiasis Surgical History Hx of adenoidectomy And tonsillectomy as a child Previous section x 2 2018 and 2019 Had a tubal ligation with her second in [address] Rodriguez in [place] Status post tubal ligation Performed with her second in 2019--per patient it was a partial salpingectomy Family History Denies family history of Clotting disorder Dementia Chronic kidney disease (CKD) Cancer Social History Smoking and tobacco status: never smoked Alcohol intake: never Adopted: No Caregiver/support person: Yes Lives independently: Yes Household members: spouse, family and children Marital status: Number of children: 3 Number of grandchildren: 0 History History History 3 Term 1 Miscarriages/Ectopic 0 1 Living Children 3 Past Pregnancies Del. Date GA/Weeks Outcome Route Wt Inf Gender Labor Lgth Comp. Anesthesia Location 01/10/15 41 live - full term Vaginal 7 lb 15.5 oz Male Fourth degree laceration [facility] 02/27/19 36 live - full term 5 lb 5 oz Male [place], [place] Delivery Date: 01/10/15 Last Updated by: Verónica Cardoso MD Gestational hypertension, contractions twice in the late second and early third trimester requiring terbutaline each time, D antigen positive Delivery Date: 02/27/19 Last Updated by: Verónica Cardoso MD Dichorionic diamniotic twin gestation, both twins were male, second twin weighed 6 pounds 2 ounces, preeclampsia diagnosed at 31 weeks with hospitalization through delivery at 36 weeks, elective section given fourth degree laceration with first delivery Vitals/I&O/Wt Last Vital Signs Temp 100.2 F H 06/29/21 16:20 Pulse 134 H 06/29/21 16:20 Resp 18 06/29/21 16:20 BP 180/133 06/29/21 16:20 Pulse Ox 100 06/29/21 16:20 Weight last 48 hrs Weight 300 lb Data : 06/29/21 18:19 06/29/21 18:19 Attestations Medical Necessity Statement*: Patient will need to stay to recover from surgery for 1-2 more midnights Coding Level of Care Code Acute Show Card Letterer for Zenaida Marie
[2021-06-29] MEDS: lactated ringers 500 ML 999 ML IV (22:52)
[2021-06-29 22:54] VITALS: BP 146/87; BP 150/88; PULSE 114; PULSE 117; RESP 16; RESP 20; TEMP 37.5; O2SAT 100; O2SAT 95
--- NOTE | 2021-06-29 23:02 | P.ANESASSM_ITS ---
Pre-Anesthetic Assessment Height/Weight: Height 1.65 m Weight 136.078 kg Temp Pulse Resp BP Pulse Ox 100.2 F H 117 H 16 146/87 95 06/29/21 16:20 06/29/21 22:54 06/29/21 22:54 06/29/21 22:54 06/29/21 22:54 Preop Diagnosis: ectopic Operation Date: 06/29/21 22:50 Proposed Procedures p Laparoscopic Ectopic (Not Applicable) - Rocky Osorio MD Familial anesthetic complications: None Was Beta Lizette taken within 24 hours: N/A Was Clonidine taken within 24 hours: N/A Last intake: > 8 hrs Social No alcohol and No tobacco Exam alert, oriented x 3, clear to auscultation bilaterally and regular rate & rhythm Airway Mallampati: Class III Dentition: full CV/HEM Hypertension Metabolic Morbid Obesity and Thyroid Disease Anesthetic Plan ASA status: 2E Anesthesia: General Risk of > 500 ml blood loss (7ml/kg in children): No Medications/Allergies Home Medications Medication Instructions Recorded Confirmed Last Taken Type 1 tab PO DAILY 12/22/19 02/07/20 1 Day Ago History ~02/06/20 iron 1 tab PO DAILY 12/22/19 02/07/20 1 Day Ago History ~02/06/20 Allergies Allergy/AdvReac Type Severity Reaction Status Date / Time amoxicillin Allergy ALGY-Anaphy Verified 02/07/20 16:45 laxis Penicillins Allergy ALGY-Swell Verified 02/07/20 16:45 Lip/Tongue/Throat [facility] Anesthesia Medical History Cholelithiasis Surgical History Hx of adenoidectomy And tonsillectomy as a child Previous section x 2 2018 and 2019 Had a tubal ligation with her second in [address] Rodriguez in [place] Status post tubal ligation Performed with her second in 2019--per patient it was a partial salpingectomy Family History Denies family history of Clotting disorder Dementia Chronic kidney disease (CKD) Cancer Social History Smoking and tobacco status: never smoked Alcohol intake: never Adopted: No Caregiver/support person: Yes Lives independently: Yes Household members: spouse, family and children Marital status: Number of children: 3 Number of grandchildren: 0 Female Reproductive History Date of last menstrual period: 06/26/19 Data Anesthesia : 06/29/21 18:19 06/29/21 18:19 Short CBC 06/29/21 Range/Units 18:19 WBC 6.2 (4.0-10.0) 10^3/uL Hgb 12.0 (11.5-15.3) g/dL Hct 40.1 (37.0-47.0) % MCV 81.2 (81-99) fl Plt Count 332 (130-400) 10^3/cmm Neut % (Auto) 83.8 % Neut # (Auto) 5.17 (1.8-7.7) 10^3/uL BMP 06/29/21 18:19 Sodium 135 L Potassium 4.4 Chloride 103 Carbon Dioxide 19 L BUN 5 L Creatinine 0.5 Glucose 93 Calcium 8.7 Liver Function 06/29/21 Range/Units 18:19 Total Bilirubin 0.2 (0.15-1.2) mg/dL AST 42 H (0-32) U/L ALT 40 H (0-33) U/L Alkaline Phosphatase 92 (35-105) IU/L Albumin 4.7 (3.5-5.2) g/dL Urine 06/29/21 Range/Units 17:17 Urine Color Yellow (Yellow) Urine Appearance Clear (CLEAR) Urine pH 7 (5-7) Ur Specific [place] 1.010 (1.005-1.030) Urine Protein Neg (Negative) Urine Glucose (UA) Norm (Normal) Urine Ketones Negative (Negative) Urine Nitrate Negative (Negative) Urine Bilirubin Neg (Negative) Ur Leukocyte Esterase Negative (Negative) Cardiac Studies: No Data to Display
[2021-06-30] VITALS (15 sets, daily range): BP systolic 126–170; BP diastolic 56–96; PULSE 80–105; RESP 15–25; TEMP 36.5–37.1; O2SAT 92–98
[2021-06-30] MEDS: silver nitrate applicator 1 EACH TOPICAL (00:54)
--- NOTE | 2021-06-30 01:02 | P.OP_ITS ---
Operative Report Date of procedure: June 30, 2021 OPERATIVE REPORT Date of surgery:06/30/2021. Date of dictation: 06/30/2021 Preoperative diagnosis: Right lower quadrant pain-possible ectopic, history of bilateral tubal ligation and C-sections, morbid obesity with a BMI of 50 Postoperative diagnosis/findings: Same, exam under anesthesia anteverted 8-week size uterus, no obvious adnexal masses, on laparoscopy bilateral tubes with signs of surgery-cystic mass noted between the right ovary and the right tube which was inseparable, density lesions of the bladder and uterus on the anterior abdominal wall, filmy adhesions of the tube onto the pelvic sidewall on the left, normal-appearing appendix Procedure done: Laparoscopic bilateral total salpingectomy, right oophorectomy for suspected ectopic Specimens removed/disposition of specimens: Bilateral tubes and right ovary, left paratubal cyst-the right ovary and tube were in a complex mass Surgeon: Dr. Rocky Crowder fire control assistant: Flavia Will Anesthesia: General endotracheal tube anesthesia Estimated blood loss: 25 ml Intravenous fluids: 1200 mL of LR Urine output: 100 mL of clear urine via Malagon catheter Medications: As per anesthesia records Complications: None, patient was extubated and taken to the recovery room in a stable condition PROCEDURE: After consents were signed patient was taken to the operating room where she was placed under general anesthesia without any difficulty. She was placed supine on the table in the lithotomy position. Exam under anesthesia revealed findings noted above. She was then prepped and draped in usual sterile fashion. Weighted speculum and anterior wall retractors were placed in the vagina, cervix visualized and grasped with a tenaculum. ZUMI uterine manipulator was placed into the uterus without any difficulty. Catheter was placed, instruments were removed from the vagina and the legs were lowered. Attention was turned towards the abdomen where local anesthetic was injected in to her umbilicus. A 10 mm skin incision was made and a 10 mm port was placed through the umbilicus using an open technique--- fascia was identified and tented up with [place] clamps and directly incised using curved Mayos. Peritoneum was then bluntly entered digitally and palpation revealed no adhesions around site of entry. Somers trocar was then attached to the fascia and inflated. Once intra-abdominal entry was confirmed gas was turned on and intra-abdominal opening pressure was 2. The abdomen is insufflated to the pressure was 14. Survey of the abdomen revealed no trauma at site of entry and no adhesions of the omentum. Appendix was visualized and appeared normal. Dense adhesions of the uterus onto the anterior abdominal wall and adhesions of the bladder onto the uterus were noted. Posterior cul-de-sac appeared clear. Bilateral tubes showed signs of previous surgery. Filmy adhesions of bilateral tubes onto the pelvic sidewall. There was a small subcentimeter paratubal cyst on the left fallopian tube. The right ovary and tube complex was involved in a cystic mass and right tube was unable to be from this mass. It was not clear if it was an ectopic in the mesosalpinx versus a large ovarian cyst with the tube adherent to it. Decision at this point was made to take out the right ovary since we were not able to separate the tube from the ovary. Two 5 mm trocar was placed into the left and right lower quadrant under direct visualization after injecting local anesthetic. The PharmAtheneyant device was used to clamp, cauterize and then cut the mesosalpinx under the left fallopian tube starting at the fimbriated end and moving towards the uterus. This was done in a sequential fashion in such a way that the entire fallopian tube was from the sidewall and the uterus. The small cornual stump was cauterized as well. The right ovary and tube complex was involved in a cystic mass and right tube was unable to be from this mass. It was not clear if it was an ectopic in the mesosalpinx versus a large ovarian cyst with the tube adherent to it. Decision at this point was made to take out the right ovary since we were not able to separate the tube from the ovary.. The right infundibulopelvic ligament was visualized and grasped well away from the pelvic sidewall and ureter was visualized without any difficulty away from site of surgery. The IP ligament was clamped cauterized and then cut proceeding in a sequential fashion taking care to stay as medial as possible. The IP ligament, mesosalpinx was clamped cauterized and cut up until the level of the previous tubal ligation site. The ovarian ligament was then clamped cauterized and cut and these 2 areas were joined the tube ovarian complex. This was placed in the cul-de-sac. The remainder of the right fallopian tube cornual stump was then clamped cauterized and then excised and taken out through the port. Bilateral cornual stumps were cauterized to decrease the risk of cornual ectopic. The segment of the left tube was taken out through the port along with the paratubal cyst. Pressure was decreased to 0 and no active bleeding was noted at sites of surgery. Peristalsis was noted in the ureters bilaterally. No bleeding was noted at sites of surgery. The camera was switched to a 5 mm camera and placed through the lateral port and the Endo Catch bag was introduced through the Somers umbilical port. The right fallopian tube ovary complex was placed into the Endo Catch bag under direct visualization. The 2 lateral trochars were taken out under direct visualization and no active bleeding was noted. The umbilical port along with the Endo Catch bag was also taken out. the abdomen was desufflated. Positive pressure breaths were given to help desufflate the abdomen. The fascia on the umbilical port was closed with 0 Vicryl in a continuous fashion and good reapproximation was obtained-care was taken to tent up the fascia throughout the closure. The subcutaneous layer was cauterized and then closed with 0 Vicryl in a [id number] fashion. The skin incisions was closed with 4-0 Monocryl in a subcuticular fashion good reapproximation and hemostasis was noted. The incisions were dressed with Steri-Strips Telfa and Tegaderm. The ZUMI and Malagon catheter were removed and good hemostasis was noted with silver nitrate The patient was extubated without any difficulty and taken to the recovery room in a stable condition. This documentation was created by [employer] it applications developer software (known for inherent it applications developer error). Every effort was made to assure accuracy of it applications developer. Any obvious errors or omissions should be clarified with the author of the document. Pre-op diagnosis: Preop Diagnosis ectopic
[2021-06-30 01:05] LABS: SARS Covid-2 Antigen Negative (Negative)
[2021-06-30] MEDS: fentaNYL 50 mcg/mL INJ 2mL IVP (01:22)
[2021-06-30] MEDS: sodium chloride 0.9% 1,000 ML 125 ML IV (01:53)
[2021-06-30 02:53] LABS: Adenovirus Not Detected (NOT DETECT); Chlamydia Pneumoniae Not Detected (NOT DETECT); Coronavirus 229E,HKU1,NL63,OC4 Not Detected (NOT DETECT); Human Metapneumovirus Not Detected (NOT DETECT); Human Rhinovirus/Enterovirus Detected (NOT DETECT); Influenza A Not Detected (NOT DETECT); Influenza A H1 Not Detected (NOT DETECT); Influenza A H1-2009 Not Detected (NOT DETECT); Influenza A H3 Not Detected (NOT DETECT); Influenza B Not Detected (NOT DETECT); Mycoplasma Pneumoniae Not Detected (NOT DETECT); Parainfluenza Virus Type 1 Not Detected (NOT DETECT); Parainfluenza Virus Type 2 Not Detected (NOT DETECT); Parainfluenza Virus Type 3 Not Detected (NOT DETECT); Parainfluenza Virus Type 4 Not Detected (NOT DETECT); Respiratory Syncytial Virus A Not Detected (NOT DETECT); Respiratory Syncytial Virus B Not Detected (NOT DETECT); SARS-COV-2 Detected (NOT DETECT)
[2021-06-30] MEDS: HYDROcodone-acetaminophen 5-325 mg Tablet PO ×2 (04:38→12:32)
[2021-06-30 05:29] LABS: Human Metapneumovirus Not Detected (NOT DETECT); Human Rhinovirus/Enterovirus Detected (NOT DETECT); Results from Genmark
[2021-06-30 06:12] LABS: Hematocrit 37.5 % (37.0-47.0); Hemoglobin 11.3 g/dL (11.5-15.3); Mean Corpuscular HGB Conc 30.1 g/dL (30.0-36.0); Mean Corpuscular Hemoglobin 23.9 pg (28.0-34.0); Mean Corpuscular Volume 79.4 fl (81-99); Mean Platelet Volume 9.2 fL (7.4-10.4); Platelet Count 301 10^3/cmm (130-400); Red Blood Count 4.72 10^6/uL (4.1-5.3); Red Cell Distribution Width 16.3 % (12.1-15.1)
[2021-06-30 06:48] LABS: Alanine Aminotransferase 60 U/L (0-33); Albumin Level 4.2 g/dL (3.5-5.2); Alkaline Phosphatase 92 IU/L (35-105); Blood Urea Nitrogen 5 mg/dL (6-20); Calcium 8.1 mg/dL (8.5-10.5); Carbon Dioxide 18 mmol/L (22-29); Chloride 105 mmol/L (98-107); Globulin 2.3 g/dL (1.3-4.6); Glomerular Filtration Rate 151.6 mL/min (90-130); Glucose 133 mg/dL (65-115); Osmolality Calculated 279 mOsm/kg (285-295); Sodium 135 mmol/L (136-145); Total Bilirubin 0.2 mg/dL (0.15-1.2); Total Protein 6.5 g/dL (6.6-8.7)
[2021-06-30 06:49] LABS: Anion Gap 16.3 (5-19); Aspartate Amino Transferase 78 U/L (0-32); Potassium 4.3 mmol/L (3.5-5.1)
[2021-06-30] MEDS: dextrose 5%-lactated ringers 1,000 ML 125 ML IV (08:27)
[2021-06-30] MEDS: docusate sodium 100 mg Capsule PO (08:48)
[2021-06-30] MEDS: ibuprofen 800 mg tablet PO (10:04)
--- NOTE | 2021-06-30 15:56 | PM.OBGYDC ---
Discharge Providers PHYSICAL MEDICINE PHYSICIAN Date of Admission: 06/30/21 02:23 Date of Discharge: 06/30/21 Attending Provider at Admission: Rocky Osorio MD Attending Provider at Discharge: Rocky Osorio MD ADMISSION DIAGNOSIS: [id number] at about 5 weeks gestation -Right lower quadrant pain-possible ectopic -Previous delivery x2 -Previous tubal ligation partial -Morbid obesity with a BMI of 49.9 -Chronic hypertensive -Covid positive -Hypothyroidism -Elevated LFTs DISCHARGE DIAGNOSIS: 25-year-old status post laparoscopic bilateral total salpingectomy, right nephrectomy for ectopic -Chronic hypertension on medication -Hypothyroidism on medication -Elevated LFTs likely secondary to Covid -Covid positive PREHOSPITAL COURSE: Ms. Hernandez is a 25-year-old 4 para 2-1-0-4 with an LMP of 05/30/2021 which patient states was abnormally early in light who presents to the emergency room with right-sided lower back pain and abdominal pain.? She states that she found out she was on Friday-06/25/2021.? She spoke to her primary care provider Amelia Hernandez and was seen by her PHYSICAL MEDICINE PHYSICIAN Dr. Rodriguez in [place] on 06/26/2021.? She states he told her about the possibility of this being an ectopic but wanted to monitor her levels.? She states that blood work was done and she states her progesterone levels were normal.? She states that no quantitative beta-hCG was done.? She was supposed to go back for evaluation on but given the poor weather her appointment was canceled and she just plan to follow-up on Friday.? She denied any pain or problems until 06/29/2021.? She states that she woke up in the morning with nausea vomiting and lower abdominal pain which felt like a.? Type cramping pain and got progressively worse.? She came into the ER for further evaluation.? Reports she is very anxious since being in the ER.? Has had occasional numbness in her lower legs since being in the ER. ----> Evaluation via ultrasound did not show any intrauterine or ectopic however given exam of rebound tenderness, right lower quadrant tenderness, CMT decision was made to proceed with surgery after counseling. Option of observation was discussed with patient and possibility of this being a normal which could be interrupted by surgery was discussed with patient however she desired to proceed with surgery. HOSPITAL COURSE: She underwent an uncomplicated laparoscopic bilateral total salpingectomy and right oophorectomy on 06/30/2021 She did well on postoperative day 0 and was ambulating well, tolerating clear liquid diet. Pain was well-controlled with by mouth and IV pain medication. She denied nausea, vomiting, fever, chills, shortness of breath, leg pain. She had minimal vaginal bleeding. She was voiding freely after catheter was removed at the end of surgery. On postoperative day #0 she continued to do well with stable vital signs and stable hemoglobin at 11.3. She was ambulating well in her room however was kept on isolation precautions given Covid positive. She passed flatus and tolerating regular diet. Incisions appear clean dry and intact the next morning. She no longer had any tenderness. Vital signs were stable and overall while she did have some postoperative pain her pain was minimal compared to the pain prior to surgery. She was discharged home on postoperative day #1 in a stable condition. Plan will be to follow-up beta hCGs until negative given that no obvious signs of ectopic were identified other than the complex mass and we will not know for sure if that is the ectopic and pathology returns. Patient understands importance of follow-up to ensure that she recovers well from surgery and that has resolved. Beta-hCG this morning had dropped down to 550. She was asked to follow-up with her primary care provider from a Covid standpoint and to have a plan of care for her elevated LFTs which I suspect is secondary to her COVID. Warning signs for wound infection, postoperative complication. DVT/PE were reviewed with her. Post surgical activity restrictions were also reviewed with her at all her questions were answered to her satisfaction. This documentation was created by [employer] human factors scientist software (known for inherent human factors scientist error). Every effort was made to assure accuracy of human factors scientist. Any obvious errors or omissions should be clarified with the author of the document. Reason for Visit Reason for Visit: Abd and back pain Physical Exam Urinary Catheter Management: Malagon Latex: Cath Placed During This Visit: yes, but has since been removed by the nurse Urinary Catheter Date of Insertion: 06/29/21 Urinary Catheter Time of Insertion: 23:31 Date Urinary Catheter Removed: 06/30/21 Time Urinary Catheter Discontinued: 00:47 History History History 3 Term 1 Miscarriages/Ectopic 0 1 Living Children 3 Past Pregnancies Del. Date GA/Weeks Outcome Route Wt Inf Gender Labor Lgth Comp. Anesthesia Location 01/10/15 41 live - full term Vaginal 7 lb 15.5 oz Male Fourth degree laceration [facility] 02/27/19 36 live - full term 5 lb 5 oz Male [place], [place] Delivery Date: 01/10/15 Last Updated by: Verónica Cardoso MD Gestational hypertension, contractions twice in the late second and early third trimester requiring terbutaline each time, D antigen positive Delivery Date: 02/27/19 Last Updated by: Verónica Cardoso MD Dichorionic diamniotic twin gestation, both twins were male, second twin weighed 6 pounds 2 ounces, preeclampsia diagnosed at 31 weeks with hospitalization through delivery at 36 weeks, elective section given fourth degree laceration with first delivery Discharge Data Studies Completed and Pending Completed Studies During Hospitalization Category Date Time Status US transvaginal [id number] Urgent Ultrasound 06/29/21 19:21 Completed Pending at discharge Category Date Time Status ES surgery / GI images Routine Exams 06/29/21 22:40 Taken Pathology: Surgical [PTH] Routine Pth 06/30/21 01:07 Ordered Radiology Impressions Transvaginal US 06/29/21 19:21 IMPRESSION: 1. Small hypoechoic cystic lesion of the anterior proximal cervix region; favor nabothian cyst. 2. Ectopic placement of a gestational sac cannot be excluded at this time. Recommend short interval follow-up ultrasound in 1 week. 3. Otherwise, no evidence of intrauterine gestation at this time. Continued surveillance with beta HCG recommended. Laboratory Results WBC 6.0 10^3/uL (4.0-10.0) 06/30/21 06:00 RBC 4.72 10^6/uL (4.1-5.3) 06/30/21 06:00 Hgb 11.3 g/dL (11.5-15.3) L 06/30/21 06:00 Hct 37.5 % (37.0-47.0) 06/30/21 06:00 MCV 79.4 fl (81-99) L 06/30/21 06:00 MCH 23.9 pg (28.0-34.0) L 06/30/21 06:00 MCHC 30.1 g/dL (30.0-36.0) 06/30/21 06:00 RDW 16.3 % (12.1-15.1) H 06/30/21 06:00 Plt Count 301 10^3/cmm (130-400) 06/30/21 06:00 MPV 9.2 fL (7.4-10.4) 06/30/21 06:00 Neut % (Auto) 83.8 % 06/29/21 18:19 Lymph % (Auto) 3.7 % 06/29/21 18:19 [place] % (Auto) 9.7 % 06/29/21 18:19 Eos % (Auto) 1.9 % 06/29/21 18:19 Baso % (Auto) 0.6 % 06/29/21 18:19 Neut # (Auto) 5.17 10^3/uL (1.8-7.7) 06/29/21 18:19 Lymph # (Auto) 0.2 10^3/uL (0.8-4.8) L 06/29/21 18:19 [place] # (Auto) 0.6 10^3/uL (0.2-0.9) 06/29/21 18:19 Eos # (Auto) 0.1 10^3/uL (0.0-0.8) 06/29/21 18:19 Baso # (Auto) 0.0 10^3/uL (0.0-0.1) 06/29/21 18:19 Nucleated RBC % (auto) 0 % 06/29/21 18:19 Nucleated RBCs # 0.0 /100WBC 06/29/21 18:19 Sodium 135 mmol/L (136-145) L 06/30/21 06:00 Potassium 4.3 mmol/L (3.5-5.1) 06/30/21 06:00 Chloride 105 mmol/L (98-107) 06/30/21 06:00 Carbon Dioxide 18 mmol/L (22-29) L 06/30/21 06:00 Anion Gap 16.3 (5-19) 06/30/21 06:00 BUN 5 mg/dL (6-20) L 06/30/21 06:00 Creatinine 0.5 mg/dL (0.5-0.9) 06/30/21 06:00 GFR Calculation 151.6 mL/min (90-130) H 06/30/21 06:00 Glucose 133 mg/dL (65-115) H 06/30/21 06:00 Calculated Osmolality 279 mOsm/kg (285-295) L 06/30/21 06:00 Calcium 8.1 mg/dL (8.5-10.5) L 06/30/21 06:00 Total Bilirubin 0.2 mg/dL (0.15-1.2) 06/30/21 06:00 AST 78 U/L (0-32) H 06/30/21 06:00 ALT 60 U/L (0-33) H 06/30/21 06:00 Alkaline Phosphatase 92 IU/L (35-105) 06/30/21 06:00 Total Protein 6.5 g/dL (6.6-8.7) L 06/30/21 06:00 Albumin 4.2 g/dL (3.5-5.2) 06/30/21 06:00 Globulin 2.3 g/dL (1.3-4.6) 06/30/21 06:00 Lipase 22 U/L (13-60) 06/29/21 18:19 HCG, Qual Positive (Negative) H 06/29/21 17:17 Ser , Semi-Qnt 553.10 mIU/mL 06/30/21 06:00 Urine Color Yellow (Yellow) 06/29/21 17:17 Urine Appearance Clear (CLEAR) 06/29/21 17:17 Urine pH 7 (5-7) 06/29/21 17:17 Ur Specific [place] 1.010 (1.005-1.030) 06/29/21 17:17 Urine Protein Neg (Negative) 06/29/21 17:17 Urine Glucose (UA) Norm (Normal) 06/29/21 17:17 Urine Ketones Negative (Negative) 06/29/21 17:17 Urine Blood Neg (Negative) 06/29/21 17:17 Urine Nitrate Negative (Negative) 06/29/21 17:17 Urine Bilirubin Neg (Negative) 06/29/21 17:17 Urine Urobilinogen Neg mg/dL (Negative) 06/29/21 17:17 Ur Leukocyte Esterase Negative (Negative) 06/29/21 17:17 Coronavirus 229E (PCR) Not detected (NOT DETECT) 06/29/21 22:45 Human Metapneumovir PCR Not detected (NOT DETECT) 06/30/21 05:28 Entero/Rhino (PCR) Detected (NOT DETECT) A 06/30/21 05:28 SARS-CoV-2 (PCR) Detected (NOT DETECT) A 06/29/21 22:45 SARS-CoV-2 Ag (Rapid) Negative (Negative) 06/29/21 22:43 Blood Type A Positive 06/29/21 22:50 Rho(D) Type Positive 06/29/21 22:50 Antibody Screen Negative 06/29/21 22:50 Vitals Last Vital Signs Temp 98.8 F 06/30/21 15:40 Pulse 85 06/30/21 15:40 Resp 20 H 06/30/21 15:40 BP 130/84 06/30/21 15:40 Pulse Ox 98 06/30/21 15:40 Discharge Plan Discharge Patient Disposition: Home Condition: Stable Prescriptions: New ibuprofen 800 mg tablet 800 mg PO Q8H Qty: 30 0RF hydrocodone-acetaminophen 5-325 mg tablet 1 tab PO Q6H Qty: 25 0RF Rx Instructions: Alternate with ibuprofen docusate sodium 100 mg Capsule 100 mg PO BID PRN (Reason: constipation) Qty: 30 0RF Continued levothyroxine 25 mcg Tablet 25 mcg PO DAILY 0RF lisinopril 10 mg Tablet 10 mg PO DAILY 0RF Discharge Orders: Discharge Order (Routine); Ordered 06/30/21 Ordered By: Rocky Osorio Referrals: Amelia Hernandez APN [Referring] - (Covid positive) Rocky Osorio MD [Physician] - (Please call Friday morning to schedule your 1 week, 2 week, and 6 week follow up appointments. ) Discharge Diet: Regular Discharge Activity: Limit activity as instructed Patient Instructions: Ectopic (DC), Salpingectomy (DC), Laparoscopic Oophorectomy (DC), OB Discharge Report, OB Food/Drug Interaction Guide, Opioid Safety Activity Restrictions/Additional Instructions: Pelvic rest for 6 weeks, no heavy lifting for 6 weeks 1 week, 2-week and 6-week postoperative visit with Dr. Crowder Discharge Attestations PHYSICAL MEDICINE PHYSICIAN Time Spent in Discharge Care*: greater than 30 min Status at Discharge: Cognitive status at discharge: cognitively intact, Behavioral status at discharge: cooperative, Coding Level of Care Code Acute Purchasing Associate for Zeniada Marie
== END 2021-06-30 15:45 | disposition home or self-care (01) ==
LOC: ER 21:43 → OR 22:27 → OBGYN 06-30 02:27
PROVIDERS: Emergency Medicine; Admitting Provider Obstetrics & Gynecology; Emergency Provider Physician Assistant; Visit Provider Obstetrics & Gynecology
PROC: (CPT 59150; principal; 2021-06-29 22:50)
DX: N83.8 Other noninflammatory disorders of ovary, fallopian tube and broad ligament (principal); Z98.51 Tubal ligation status; E66.01 Morbid (severe) obesity due to excess calories; Z68.43 Body mass index [BMI] 50.0-59.9, adult; I10 Essential (primary) hypertension
CPT/HCPCS: 58661; 36415; 76830; 80053; 81003; 81025; 83690; 84702; 85025; 85027; 86850; 86900; 87426; 87635; 87801; 88305; 96374; 99285; G0378; J0330; J1100; J2405; J2704; J2710; J3010; J3490; J7030; J7040

== ENCOUNTER 2021-07-06 17:18 | Emergency (ER) | payer SELFPAY ==
[2021-07-06 17:25] VITALS: BP 122/29; PULSE 80; RESP 16; TEMP 36.4; O2SAT 98; BMI 49.9
--- NOTE | 2021-07-06 18:57 | CTR_ITS ---
PROCEDURE INFORMATION: Exam: CT Abdomen And Pelvis With Contrast Exam date and time: 07/06/2021 6:57 PM Age: 25 years old Clinical indication: Nausea and vomiting; Abdominal pain; Localized; Prior surgery; Surgery date: 3-7 days post-operative; Surgery type: Tubal ligation. ; Patient HX: Patient C/O lower abd pain with n/v. Underwent tubal ligation last Friday. ; Additional info: Abd pain, recent abd surgery, R/O abscess TECHNIQUE: Imaging protocol: Computed tomography of the abdomen and pelvis with contrast. Radiation optimization: All CT scans at this facility use at least one of these dose optimization techniques: automated exposure control; mA and/or kV adjustment per patient size (includes targeted exams where dose is matched to clinical indication); or iterative reconstruction. Contrast material: OMNI 300; Contrast volume: 95 ml; Contrast route: INTRAVENOUS (IV); COMPARISON: CT abdomen pelvis w con* [id number] 06/16/2019 12:37 PM RADIATION DOSE METRICS: Total DLP (mGy-cm): 1928.3 FINDINGS: Lungs: Lung bases are clear. Liver: The liver is normal. Gallbladder and bile ducts: The gallbladder is normal. There is no biliary dilation. Pancreas: The pancreas is unremarkable. Spleen: The spleen is mildly enlarged. Adrenal glands: The adrenal glands are unremarkable. Kidneys and ureters: there are tiny (1-2 mm) nonobstructive stones in the left kidney. There is no hydronephrosis or ureteral dilation. The right kidney and ureter are unremarkable. Stomach and bowel: The stomach is decompressed, preventing meaningful evaluation of wall thickness. The small bowel is nondilated. The colon is unremarkable. Appendix: The appendix is normal. Intraperitoneal space: There is no intraperitoneal free air. Vasculature: The aorta is unremarkable. There is no aneurysm. The portal, splenic and superior mesenteric veins are patent. Lymph nodes: There is no lymphadenopathy in the retroperitoneum, mesentery, pelvis or inguinal regions. Urinary bladder: The urinary bladder is unremarkable. Reproductive: The uterus is unremarkable. There is no adnexal mass or large cyst. Bones/joints: Bones are unremarkable. Soft tissues: There is focal edema in the abdominal wall at the umbilicus consistent with recent laparoscopic surgery. No hernia. CT/CT abdomen pelvis w con* [id number] IMPRESSION: 1. No acute intra-abdominal findings. 2. Incidental findings above.
--- NOTE | 2021-07-06 18:59 | ED_ITS ---
HPI - Abdominal Pain General: Chief Complaint: Abdominal Pain Stated Complaint: ABDOMINAL PAIN/ N/V Time Seen by Provider: 07/06/21 18:57 History of Present Illness: 25-year-old female comes in today for complaints of nausea and vomiting and dizziness. Patient reports symptoms started after a tubal ligation last Friday. Patient reports minimal discomfort to the lower abdomen. Patient denies any fever. Patient appears mildly unwell but not toxic. Patient appears in no pain. MD elicited complaint: abdominal pain Pertinent past history: other (Recent tubal ligation) Onset (ago): day(s) Location: Suprapubic Severity: mild Associated Symptoms: Reports nausea and vomiting; Denies fever(s) Related Data: Date of Last Menstrual Period: 06/26/19 Review of Systems General: Reports: 10 or more systems reviewed and unremarkable except in HPI and below Const: Denies: fever(s) Resp: Denies: dyspnea GI: Reports: abdominal pain (Mild suprapubic), nausea and vomiting [facility] PFSH: Medical History (Updated 07/06/21 @ 22:25 by YANET Iniguez) Cholelithiasis Chronic hypertension Diagnosed in 2019 and has been on medication since then managed by her primary care provider. 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 No pertinent past medical history Denies diabetes, asthma, seizures, DVT/PE PMD: Amelia Yashowen Surgical History (Updated 06/30/21 @ 15:48 by Rocky Osorio MD) Hx of adenoidectomy And tonsillectomy as a child Previous section x 2 2018 and 2019 Had a tubal ligation with her second in [address] Rodriguez in [place] Status post laparoscopy 06/30/2021---diagnostic laparoscopy with bilateral salpingectomy and right oophorectomy for suspected [place] [facility] [place]At time of surgery dense adhesions of the bladder and uterus onto the anterior abdominal wall, filmy adhesions of bilateral tubes to the pelvic sidewall, normal appendix visualized. ------> pathology showed Status post tubal ligation Performed with her second in 2019--per patient it was a partial salpingectomy Family History Denies family history of Clotting disorder Dementia Chronic kidney disease (CKD) Cancer Social History Smoking and tobacco status: never smoked Alcohol intake: never Adopted: No Caregiver/support person: Yes Lives independently: Yes Household members: spouse, family and children Marital status: Number of children: 3 Number of grandchildren: 0 Female Reproductive History: Date of last menstrual period: 06/26/19 Physical Exam Const: COMMON NORMALS: alert HENMT: COMMON NORMALS: normocephalic HEAD & SCALP: normocephalic THROAT: posterior oropharynx normal Resp: COMMON NORMALS: normal respiratory effort Cardio: COMMON NORMALS: regular rate and Peripheral pulses 2+ throughout RATE: regular rate PERIPHERAL PULSES: Peripheral pulses 2+ throughout GI: COMMON NORMALS: Soft to palpation INSPECTION: Yes other (Normal surgical healing wounds) PALPATION: Yes Soft to palpation and Yes Tenderness to palpation present (GI) (Lower abdomen) Extremity: COMMON NORMALS: normal to inspection Neuro: SENSORIUM/ORIENTATION: Yes alert Psych: COMMON NORMALS: cooperative Skin: COMMON NORMALS: no rashes or lesions noted GENERAL SKIN EXAM: no rashes or lesions noted Course Reevaluation(s): Reevaluation #1: 2029, patient continues to have headache with some improvement, will add dexamethasone and reglan to treatment. Reevaluation #2: 2229, patient reports significant headache improvement, Patient was given 0.1mg of clondine for elevated blood pressure. Vital Signs: Vital signs: Vital Signs Temperature 97.6 F 07/06/21 17:25 Pulse Rate 75 07/06/21 19:46 Respiratory Rate 18 07/06/21 19:46 Blood Pressure 164/111 07/06/21 19:46 Pulse Oximetry 99 07/06/21 19:46 MDM - Abdominal Pain Medical Decision Making 25-year-old female comes in today with complaints of headache and nausea and vomiting. Patient had a tubal ligation on Friday of last week and tested positive for COVID-19. Patient reports minimal symptoms but for the past 2 days has had increasing nausea and vomiting with headache. No focal neural deficits are noted. Skin is warm and dry. Vital signs are normal. Differential diagnosis includes but not limited to surgical site infection, dehydration, rebound headache from narcotic use, urinary tract infection, viral syndrome. Laboratory values noted a white count 4.9, mild anemia with a hemoglobin of 10.9, CMP was unremarkable. Urinalysis had a large amount of skin cells and some red blood cells. CT of the abdomen pelvis is unremarkable. Patient was given 2 L of IV fluids for the persistent vomiting and concern for dehydration. Patient was treated for her headache with Benadryl, Reglan, dexamethasone with good results. After infusion of 2 L of saline patient did have elevation in her blood pressure it was treated with clonidine. Reviewed exam with patient I feel that her nausea and vomiting headache is most likely due to the COVID-19 infection I recommended Zofran to be used for nausea and encouraging plenty of fluids. Patient reported understanding and agreed to plan. Lab Data : 07/06/21 21:20 07/06/21 21:20 Labs/Radiology: Radiology Impressions Abdomen/Pelvis CT 07/06/21 18:57 IMPRESSION: 1. No acute intra-abdominal findings. 2. Incidental findings above. Laboratory Results WBC 4.9 10^3/uL (4.0-10.0) 07/06/21 21:20 RBC 4.59 10^6/uL (4.1-5.3) 07/06/21 21:20 Hgb 10.9 g/dL (11.5-15.3) L 07/06/21 21:20 Hct 36.6 % (37.0-47.0) L 07/06/21 21:20 MCV 79.7 fl (81-99) L 07/06/21 21:20 MCH 23.7 pg (28.0-34.0) L 07/06/21 21:20 MCHC 29.8 g/dL (30.0-36.0) L 07/06/21 21:20 RDW 15.6 % (12.1-15.1) H 07/06/21 21:20 Plt Count 339 10^3/cmm (130-400) 07/06/21 21:20 MPV 9.4 fL (7.4-10.4) 07/06/21 21:20 Neut % (Auto) 69.5 % 07/06/21 21:20 Lymph % (Auto) 21.3 % 07/06/21 21:20 [place] % (Auto) 6.6 % 07/06/21 21:20 Eos % (Auto) 1.6 % 07/06/21 21:20 Baso % (Auto) 0.6 % 07/06/21 21:20 Neut # (Auto) 3.39 10^3/uL (1.8-7.7) 07/06/21 21:20 Lymph # (Auto) 1.0 10^3/uL (0.8-4.8) 07/06/21 21:20 [place] # (Auto) 0.3 10^3/uL (0.2-0.9) 07/06/21 21:20 Eos # (Auto) 0.1 10^3/uL (0.0-0.8) 07/06/21 21:20 Baso # (Auto) 0.0 10^3/uL (0.0-0.1) 07/06/21 21:20 Nucleated RBC % (auto) 0 % 07/06/21 21:20 Nucleated RBCs # 0.0 /100WBC 07/06/21 21:20 Sodium 137 mmol/L (136-145) 07/06/21 21:20 Potassium 4.1 mmol/L (3.5-5.1) 07/06/21 21:20 Chloride 105 mmol/L (98-107) 07/06/21 21:20 Carbon Dioxide 23 mmol/L (22-29) 07/06/21 21:20 Anion Gap 13.1 (5-19) 07/06/21 21:20 BUN 8 mg/dL (6-20) 07/06/21 21:20 Creatinine 0.5 mg/dL (0.5-0.9) 07/06/21 21:20 GFR Calculation 151.6 mL/min (90-130) H 07/06/21 21:20 Glucose 89 mg/dL (65-115) 07/06/21 21:20 Calculated Osmolality 282 mOsm/kg (285-295) L 07/06/21 21:20 Lactic Acid 1.1 mmol/L (0.5-2.2) 07/06/21 21:20 Calcium 9.0 mg/dL (8.5-10.5) 07/06/21 21:20 Total Bilirubin 0.3 mg/dL (0.15-1.2) 07/06/21 21:20 AST 45 U/L (0-32) H 07/06/21 21:20 ALT 60 U/L (0-33) H 07/06/21 21:20 Alkaline Phosphatase 77 IU/L (35-105) 07/06/21 21:20 Total Protein 7.0 g/dL (6.6-8.7) 07/06/21 21:20 Albumin 4.2 g/dL (3.5-5.2) 07/06/21 21:20 Globulin 2.8 g/dL (1.3-4.6) 07/06/21 21:20 Lipase 19 U/L (13-60) 07/06/21 21:20 Urine Color Yellow (Yellow) 07/06/21 18:36 Urine Appearance Clear (CLEAR) 07/06/21 18:36 Urine pH 5 (5-7) 07/06/21 18:36 Ur Specific [place] 1.015 (1.005-1.030) 07/06/21 18:36 Urine Protein Trace (Negative) 07/06/21 18:36 Urine Glucose (UA) Norm (Normal) 07/06/21 18:36 Urine Ketones Negative (Negative) 07/06/21 18:36 Urine Blood 3+ (Negative) H 07/06/21 18:36 Urine Nitrate Negative (Negative) 07/06/21 18:36 Urine Bilirubin Neg (Negative) 07/06/21 18:36 Urine Urobilinogen Neg mg/dL (Negative) 07/06/21 18:36 Ur Leukocyte Esterase Negative (Negative) 07/06/21 18:36 Urine RBC 25-40 /hpf (0-2) H 07/06/21 18:36 Urine WBC 0-4 /hpf (0-5) H 07/06/21 18:36 Ur Squamous Epith Cells 5-10 /hpf (0-5) H 07/06/21 18:36 Amorphous Sediment Not Reportable 07/06/21 18:36 Urine Bacteria 1+ /hpf (NONE) H 07/06/21 18:36 Urine Mucus 2+ /hpf 07/06/21 18:36 Discharge Plan Discharge Patient Disposition: Home Clinical Impression: COVID-19 Nausea & vomiting Qualifiers: Vomiting type: unspecified Qualified Code(s): R11.2 - Nausea with vomiting, unspecified Head ache Qualifiers: Headache type: unspecified Headache chronicity pattern: acute headache Intractability: intractable Qualified Code(s): R51.9 - Headache, unspecified Condition: Stable Prescriptions: New ondansetron 4 mg tablet,disintegrating 4 mg PO Q8H PRN (Reason: nausea and vomiting) Qty: 10 0RF No Action levothyroxine 25 mcg Tablet 25 mcg PO DAILY 0RF lisinopril 10 mg Tablet 10 mg PO DAILY 0RF docusate sodium 100 mg Capsule 100 mg PO BID PRN (Reason: constipation) Qty: 30 0RF ibuprofen 800 mg tablet 800 mg PO Q8H PRN (Reason: Pain) 0RF hydrocodone-acetaminophen 5-325 mg tablet 1 tab PO Q6H PRN (Reason: Pain) 0RF Rx Instructions: Alternate with ibuprofen Discharge Orders: Discharge ED (Routine); Ordered 07/06/21 Ordered By: Juan Daniel Zambrano Referrals: Amelia Hernandez APN [Primary Care Provider] - Discharge Diet: Advance as tolerated Discharge Activity: Limit activity as instructed Patient Instructions: Acute Nausea and Vomiting (ED), Opioid Safety Activity Restrictions/Additional Instructions: Drink frequent sips of fluid to maintain hydration. Continue with routine home medications for blood pressure. Follow-up with primary care in 3 days for recheck of blood pressure. Return to the ER for new concerns or worsening symptoms. Coding Level of Care Code ED System Integration Engineer for Zenaida Fwkristy History Detailed Exam Comprehensive Medical Decision Making Moderate Complexity Time Spent (min) 40
[2021-07-06 19:04] LABS: Add Urine Microscopic? YES; Bilirubin Urine Neg (Negative); Blood Urine 3+ (Negative); Glucose Urine UA Norm (Normal); Ketones Urine Negative (Negative); Leukocyte Esterase Urine Negative (Negative); Nitrate Urine Negative (Negative); Protein Urine Trace (Negative); Specific Gravity, Urine 1.015 (1.005-1.030); Urine Appearance Clear (CLEAR); Urine Color Yellow (Yellow); Urobilinogen Urine Neg (Negative); pH Urine 5 (5-7)
[2021-07-06 19:13] LABS: Add Urine Culture? Yes; Bacteria Urine 1+ /hpf; Mucus Urine 2+ /hpf; RBC Urine 25-40 /hpf (0-2); WBC Urine 0-4 /hpf (0-5)
[2021-07-06] MEDS: diphenhydrAMINE 50 mg/mL SDV 1mL 25 MG IVP (19:43)
[2021-07-06] MEDS: sodium chloride 0.9% 1,000 ML 999 ML IV ×3 (19:43→20:26)
[2021-07-06 19:46] VITALS: BP 164/111; PULSE 75; RESP 18; O2SAT 99
[2021-07-06] MEDS: iohexol 300 mg/mL 100 mL Btl IV (20:19)
[2021-07-06] MEDS: morphine 4 mg/mL SDV 1 mL 2 MG IVP (20:26)
[2021-07-06 21:00] VITALS: BP 165/123
[2021-07-06] MEDS: dexamethasone 4 mg/mL INJ 8 MG IVP (21:28)
[2021-07-06] MEDS: metoclopramide 5 mg/mL SDV 2 mL 10 MG IVP (21:28)
[2021-07-06 21:44] LABS: Basophils % 0.6 %; Eosinophils # 0.1 10^3/uL (0.0-0.8); Eosinophils % 1.6 %; Hematocrit 36.6 % (37.0-47.0); Hemoglobin 10.9 g/dL (11.5-15.3); Lymphocytes % 21.3 %; Mean Corpuscular HGB Conc 29.8 g/dL (30.0-36.0); Mean Corpuscular Hemoglobin 23.7 pg (28.0-34.0); Mean Corpuscular Volume 79.7 fl (81-99); Mean Platelet Volume 9.4 fL (7.4-10.4); Monocytes # 0.3 10^3/uL (0.2-0.9); Monocytes % 6.6 %; Neutrophils # 3.39 10^3/uL (1.8-7.7); Neutrophils % 69.5 %; Nucleated Red Blood Cells % 0 %; Platelet Count 339 10^3/cmm (130-400); Red Blood Count 4.59 10^6/uL (4.1-5.3); Red Cell Distribution Width 15.6 % (12.1-15.1); White Blood Count 4.9 10^3/uL (4.0-10.0)
[2021-07-06 21:48] LABS: Lactic Sepsis W/Reflex 1.1 mmol/L (0.5-2.2)
[2021-07-06 21:50] LABS: Alanine Aminotransferase 60 U/L (0-33); Albumin Level 4.2 g/dL (3.5-5.2); Alkaline Phosphatase 77 IU/L (35-105); Anion Gap 13.1 (5-19); Aspartate Amino Transferase 45 U/L (0-32); Blood Urea Nitrogen 8 mg/dL (6-20); Carbon Dioxide 23 mmol/L (22-29); Chloride 105 mmol/L (98-107); Globulin 2.8 g/dL (1.3-4.6); Glomerular Filtration Rate 151.6 mL/min (90-130); Glucose 89 mg/dL (65-115); Lipase 19 U/L (13-60); Osmolality Calculated 282 mOsm/kg (285-295); Potassium 4.1 mmol/L (3.5-5.1); Sodium 137 mmol/L (136-145); Total Bilirubin 0.3 mg/dL (0.15-1.2)
[2021-07-06 22:50] VITALS: BP 173/107
[2021-07-06 23:53] VITALS: BP 170/100
== END 2021-07-06 23:54 | disposition home or self-care (01) ==
PROVIDERS: Emergency Medicine; Emergency Provider Nurse Practitioner Family; PCP Nurse Practitioner Family
DX: U07.1 COVID-19 (principal); I10 Essential (primary) hypertension
CPT/HCPCS: 74177; 80053; 81001; 83605; 83690; 85025; 87040; 87086; 96361; 96374; 96375; 99284; J1100; J1200; J2270; J2765; J7030; Q9967